=== PATIENT | female | born 1995 | race Caucasian/White ===

== ENCOUNTER → 2016-05-21 | Outpatient (CLI) | payer OTHER ==
--- NOTE | 2016-05-21 19:17 | CT ---
EXAMINATION TYPE: CT brain wo con DATE OF EXAM: 05/21/2016 7:12 PM COMPARISON: 08/23/2014 HISTORY: Headaches and neck pain, worse on left side, x [address] DLP: 1077.60 mGycm Automated exposure control for dose reduction was used. FINDINGS: The ventricles and sulci appear normal. There is no mass effect or midline shift. There is no sign of intracranial hemorrhage. The calvarium appears normal. IMPRESSION: Normal unenhanced head CT scan. No change.
--- NOTE | 2016-05-21 19:21 | CT ---
EXAMINATION TYPE: CT soft tissue neck wo con DATE OF EXAM: 05/21/2016 7:12 PM COMPARISON: NONE HISTORY: Headaches and neck pain, worse on left side, x [address] DLP: 348.90 mGycm Automated exposure control for dose reduction was used. FINDINGS: The right gland is symmetric. The parotid glands are symmetric. Submandibular salivary glands are sym metric. Epiglottis appears normal. Subglottic trachea appears normal. There is no evidence of a phary ngeal mass. Tonsils and adenoids appear normal. There are a few cervical lymph nodes measure up to 1 cm. Cervical spine is intact. IMPRESSION: NEGATIVE CT SCAN OF THE CERVICAL SPINE AND SOFT TISSUES. THERE ARE MULTIPLE ANTERIOR AND POSTERIOR TR IANGLE CERVICAL LYMPH NODES THAT MEASURE UP TO 1 CM THAT ARE THOUGHT TO BE NORMAL FOR AGE.
== END | disposition home or self-care (01) ==
LOC: RADCTMAIN 18:41
PROVIDERS: ATTEND Internal Medicine
DX: M54.2 Cervicalgia (principal); R51 Headache
CPT/HCPCS: 70450; 70490

== ENCOUNTER 2016-08-18 12:23 | Emergency (ER) | payer OTHER ==
[2016-08-18 12:48] VITALS: RESP 18
[2016-08-18 13:21] LABS: Appearance,Urine Cloudy (Clear); Bacteria,Urine Occasional /hpf; Bilirubin,Urine Negative (Negative); Glucose,Urine (UA) Negative (Negative); Ketones,Urine Negative (Negative); Leukocyte Esterase,Urine Small (Negative); Mucus,Urine Occasional /hpf; Nitrite,Urine Negative (Negative); Particle Count 3000; Protein,Urine Trace (Negative); RBC,Urine 3 /hpf (0-5); Specific Gravity,Urine 1.024 (1.001-1.035); Squamous Epithelial Cell,Urine 7 /hpf (0-4); UA Billing (MACRO vs. MICRO) MICRO; Urobilinogen,Urine <2.0 mg/dL (<2.0); WBC,Urine 7 /hpf (0-5)
--- NOTE | 2016-08-18 13:36 | ED ---
Female Urogenital HPI - General Chief complaint: Urogenital Stated complaint: Female Time Seen by Provider: 08/18/16 12:53 Source: patient, RN notes reviewed Mode of arrival: ambulatory Limitations: no limitations - History of Present Illness Initial comments: Patient is a 20-year-old female presents emergency room for evaluation of lower pelvic pain. Patient states that she was on antibiotics a week ago. Patient states she began having vaginal itching. Patient states her primary care provider placed on Diflucan. Patient states was still having vaginal pain so she went to [facility]. Patient states that the physician there told her to come here for further evaluation. Patient states she's been on the depo injection for control. Patient denies history of . Patient does states she's been sexually active for the past 2 weeks. Patient denies history of STDs. Patient denies any sexual partners having a history of STDs. Patient denies abnormal vaginal discharge. Patient denies pain or burning during urination, trouble urinating or blood in urine. Patient denies nausea or vomiting. Patient denies abdominal pain. Patient denies fevers or chills. - Related Data Home Medications Medication Instructions Recorded Confirmed HYDROcodone/APAP 5-325MG [[place] 5] 1 tab PO BID PRN 10/16/14 08/18/16 Calcium Carbonate [Calcium] 600 mg PO BID 01/12/15 08/18/16 tiZANidine HCL [Zanaflex] 4 - 8 mg PO TID PRN 01/12/15 08/18/16 ALPRAZolam [Xanax] 0.5 mg PO TID PRN 01/05/16 08/18/16 DULoxetine HCL [Cymbalta] 60 mg PO DAILY 01/05/16 08/18/16 Loratadine [Claritin] 10 mg PO DAILY 03/16/16 08/18/16 rOPINIRole HCL [Requip] 2 mg PO HS PRN 03/16/16 08/18/16 Ibuprofen [Motrin] 200 - 400 mg PO Q6HR PRN 08/18/16 08/18/16 Previous Rx's Medication Instructions Recorded Ergocalciferol [Vitamin D2 50,000 unit PO TH #12 cap 01/26/16 (DRISDOL)] Doxycycline [Vibramycin] 100 mg PO Q12HR 14 Days 08/18/16 Allergies Allergy/AdvReac Type Severity Reaction Status Date / Time asenapine maleate Allergy Rash/Hives Verified 08/18/16 13:06 [From Saphris] cefaclor [From Ceclor] Allergy Rash/Hives Verified 08/18/16 13:06 tramadol Allergy Itching Verified 08/18/16 13:06 Review of Systems ROS Statement: Those systems with pertinent positive or pertinent negative responses have been documented in the HPI. ROS Other: All systems not noted in ROS Statement are negative. Past Medical History Past Medical History: Fibromyalgia Additional Past Medical History / Comment(s): RESTLESS LEG, INSOMNIA, migraines , bulging disc back,HEART PALPATATIONS,bursitis bilateral hips History of Any Multi-Drug Resistant Organisms: None Reported Past Surgical History: Adenoidectomy, Appendectomy, Bariatric Surgery, Cholecystectomy, Ear Surgery, Tonsillectomy Additional Past Surgical History / Comment(s): gastric sleeve-2011,MULT TUBES HENOK EARS, back injections Past Anesthesia/Blood Transfusion Reactions: No Reported Reaction Past Psychological History: Anxiety, Depression Additional Psychological History / Comment(s): She has a history of depression and anxiety and has been stable on her medications of Seroquel and Requip as well as Phenoazopyridine. She denies at this point in time. She does receive Depo-Provera. She is on the Haload, denies tobacco use of her crucial drug use. She has also been travel history. She does have animal exposure from her 2 pet dogs in the home. She doesn't and the family home with her mother and her father. Smoking Status: Never smoker Past Alcohol Use History: None Reported Past Drug Use History: None Reported - Past Family History Mother Family Medical History: No Reported History Father Family Medical History: Hypertension General Exam - General Exam Comments Initial Comments: sitting in exam room, no acute distress. Limitations: no limitations General appearance: alert, in no apparent distress Head exam: Present: atraumatic, normocephalic, normal inspection Eye exam: Present: normal appearance ENT exam: Present: normal exam Neck exam: Present: normal inspection Respiratory exam: Present: normal lung sounds bilaterally. Absent: respiratory distress Cardiovascular Exam: Present: regular rate, normal rhythm, normal heart sounds GI/Abdominal exam: Present: soft, normal bowel sounds. Absent: distended, tenderness, guarding, rebound, rigid External exam: Present: normal external exam Speculum exam: Present: vaginal bleeding (brown discharge) By manual exam: Present: cervical motion tenderness Extremities exam: Present: normal inspection Back exam: Present: normal inspection Neurological exam: Present: alert, oriented X3, CN II-XII intact, normal gait Psychiatric exam: Present: normal affect, normal mood Skin exam: Present: warm, dry, intact, normal color. Absent: rash Course Vital Signs 08/18/16 12:43 Temperature 98.9 F Pulse Rate 101 H Respiratory 18 Rate Blood Pressure 148/76 O2 Sat by Pulse 100 Oximetry Medical Decision Making - Medical Decision Making patient is a 20-year-old female presents to the emergency room for evaluation of vaginal pain. patient does have cervical motion tenderness on pelvic exam. Will prophylactically treat patient for PID. Vaginal cultures pending. Patient is ALLERGIC to cefaclor. Will start patient on doxycycline.advised patient to follow-up with [facility] on Saturday. Patient states she understands everything that was discussed with her. Return parameters discussed. Case discussed Dr. Kee. - Lab Data Lab Results 08/18/16 08/18/16 Range/Units 13:04 13:04 Urine Color Yellow Urine Appearance Cloudy H (Clear) Urine pH 6.0 (5.0-8.0) Ur Specific [place] 1.024 (1.001-1.035) Urine Protein Trace H (Negative) Urine Glucose (UA) Negative (Negative) Urine Ketones Negative (Negative) Urine Blood Moderate H (Negative) Urine Nitrite Negative (Negative) Urine Bilirubin Negative (Negative) Urine Urobilinogen <2.0 (<2.0) mg/dL Ur Leukocyte Esterase Small H (Negative) Urine RBC 3 (0-5) /hpf Urine WBC 7 H (0-5) /hpf Ur Squamous Epith Cells 7 H (0-4) /hpf Urine Bacteria Occasional H (None) /hpf Urine Mucus Occasional H (None) /hpf Urine HCG, Qual Not Detected (Not Detectd) Disposition Clinical Impression: PID (pelvic inflammatory disease) Disposition: HOME SELF-CARE Condition: Good Instructions: Pelvic Inflammatory Disease (ED) Additional Instructions: Take antibiotics as directed. Please follow up with [facility]. If any new symptom arises or symptoms worsen, return to ER as soon as possible. Prescriptions: Doxycycline [Vibramycin] 100 mg PO Q12HR 14 Days Referrals: Nahid Dubrin MD [Primary Care Provider] - 1-2 days Lucy Gonzalez DO [Doctor of Osteopathic Medicine] - 1-2 days Time of Disposition: 13:41
[2016-08-18] MEDS ORDERED: KETOROLAC 60 MG/2 ML VIAL IM STA (13:44)
[2016-08-18] MEDS ORDERED: DOXYCYCLINE 50 MG CAP PO STA (13:45)
[2016-08-18 14:20] VITALS: BP 141/78; PULSE 86; TEMP 97.6
== END 2016-08-18 14:23 | disposition home or self-care (01) ==
LOC: EC 12:23
DX: N73.9 Female pelvic inflammatory disease, unspecified (principal); F32.9 Major depressive disorder, single episode, unspecified; F41.9 Anxiety disorder, unspecified; Z79.899 Other long term (current) drug therapy; Z88.1 Allergy status to other antibiotic agents; Z88.6 Allergy status to analgesic agent; Z88.8 Allergy status to other drugs, medicaments and biological substances
CPT/HCPCS: 99283 ×2; 96372 ×2; 87591; 87491; 81001; 81025; 87808; 87070; J1885; 87205

== ENCOUNTER 2017-08-08 23:15 | Emergency (ER) | payer OTHER ==
[2017-08-08 23:20] VITALS: BP 152/87; PULSE 88; RESP 16; TEMP 98.9
[2017-08-08] MEDS ORDERED: diphenhydrAMINE 50 MG CAP PO STA (23:48)
[2017-08-08] MEDS ORDERED: predniSONE 50 MG TAB PO STA (23:48)
--- NOTE | 2017-08-08 23:50 | ED ---
Skin/Abscess/FB HPI - General Chief complaint: Skin/Abscess/Foreign Body Stated complaint: allergic reaction Time Seen by Provider: 08/08/17 23:21 Source: patient Mode of arrival: ambulatory Limitations: no limitations - History of Present Illness Initial comments: 21-year-old female patient presents to the emergency department today for evaluation of multiple itchy red bumps to her bilateral knees, legs, and arms. 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 Patient states these the first time being at home. Patient states he did have pets and possibly fleas. Patient states that the bumps are itchy. She denies any lip, tongue, or throat swelling. Denies any wheezing or shortness of breath. Patient denies taking anything for her symptoms. Patient states that the bump started out as small itchy bumps and are growing larger. She denies exposure to any other new products, soaps, lotions, perfume, or creams. Patient denies any recent fever, chills, chest pain, abdominal pain, nausea, vomiting, diarrhea, constipation, back pain, numbness, tingling, dizziness, weakness, hematuria, dysuria, urinary urgency, urinary frequency, headache, visual changes, or any other complaints. - Related Data Home Medications Medication Instructions Recorded Confirmed tiZANidine HCL [Zanaflex] 4 - 8 mg PO TID PRN 01/12/15 08/08/17 DULoxetine HCL [Cymbalta] 60 mg PO DAILY 01/05/16 08/08/17 Loratadine [Claritin] 10 mg PO DAILY 03/16/16 08/08/17 rOPINIRole HCL [Requip] 2 mg PO HS PRN 03/16/16 08/08/17 DULoxetine HCL [Cymbalta] 30 mg PO DAILY 08/08/17 08/08/17 Dicyclomine [Bentyl] 10 mg PO TID 08/08/17 08/08/17 Ergocalciferol [Vitamin D2 50,000 unit PO Q30D 08/08/17 08/08/17 (DRISDOL)] Fluticasone Nasal [place] [Flonase 2 spr EA NOSTRIL DAILY 08/08/17 08/08/17 Nasal [place]] LORazepam [Ativan] 1 mg PO BID 08/08/17 08/08/17 Minocycline HCl [Minocin] 100 mg PO BID 08/08/17 08/08/17 Nadolol [Corgard] 20 mg PO DAILY 08/08/17 08/08/17 Omeprazole [PriLOSEC] 40 mg PO DAILY 08/08/17 08/08/17 lamoTRIgine [LaMICtal] 25 mg PO DAILY 08/08/17 08/08/17 lamoTRIgine [LaMICtal] 50 mg PO HS 08/08/17 08/08/17 traMADol HCL [Ultram] 50 mg PO TID PRN 08/08/17 08/08/17 Previous Rx's Medication Instructions Recorded predniSONE 50 mg PO DAILY #3 tablet 08/08/17 Allergies Allergy/AdvReac Type Severity Reaction Status Date / Time asenapine maleate Allergy Rash/Hives Verified 08/08/17 23:34 [From Saphris] cefaclor [From Ceclor] Allergy Rash/Hives Verified 08/08/17 23:34 Review of Systems ROS Statement: Those systems with pertinent positive or pertinent negative responses have been documented in the HPI. ROS Other: All systems not noted in ROS Statement are negative. Past Medical History Past Medical History: Fibromyalgia Additional Past Medical History / Comment(s): RESTLESS LEG, INSOMNIA, migraines , bulging disc back,HEART PALPATATIONS,bursitis bilateral hips History of Any Multi-Drug Resistant Organisms: None Reported Past Surgical History: Adenoidectomy, Appendectomy, Bariatric Surgery, Cholecystectomy, Ear Surgery, Tonsillectomy Additional Past Surgical History / Comment(s): gastric sleeve-2011,MULT TUBES HENOK EARS, back injections Past Anesthesia/Blood Transfusion Reactions: No Reported Reaction Past Psychological History: Anxiety, Depression Smoking Status: Never smoker Past Alcohol Use History: None Reported Past Drug Use History: None Reported - Past Family History Mother Family Medical History: No Reported History Father Family Medical History: Hypertension General Exam Limitations: no limitations General appearance: alert, in no apparent distress, other (This is a well- developed, well-nourished adult female patient in no acute distress. Vital signs upon presentation are temperature 98.9F, pulse 88, respirations 16, blood pressure 152/87, pulse ox 97% on room air.) Eye exam: Present: normal appearance, PERRL, EOMI. Absent: scleral icterus, conjunctival injection, periorbital swelling ENT exam: Present: normal exam, normal oropharynx, mucous membranes moist Respiratory exam: Present: normal lung sounds bilaterally. Absent: respiratory distress, wheezes, rales, rhonchi, stridor Cardiovascular Exam: Present: regular rate, normal rhythm, normal heart sounds. Absent: systolic murmur, diastolic murmur, rubs, gallop, clicks Neurological exam: Present: alert, oriented X3, CN II-XII intact Psychiatric exam: Present: normal affect, normal mood Skin exam: Present: warm, dry, intact, normal color, rash (Intermittent red wheals with no surrounding erythema are present. These are nonvesicular, non- petechial, nonmucosal. Similar to insect bites.) Course Vital Signs 08/08/17 23:17 Temperature 98.9 F Pulse Rate 88 Respiratory 16 Rate Blood Pressure 152/87 O2 Sat by Pulse 97 Oximetry Medical Decision Making - Medical Decision Making 21-year-old female patient presented to the emergency department today for evaluation of what appears to be multiple insect bites over her arms and legs. Patient is not having any lip, tongue, or throat swelling. No trouble breathing. We will give Benadryl and prednisone for symptom relief. She is instructed to follow-up with her primary care physician for recheck in 1-2 days. Return parameters discussed in detail. She verbalizes understanding and agrees this plan. Disposition Clinical Impression: Bug bites Disposition: HOME SELF-CARE Condition: Good Instructions: Insect Bite or Sting (ED) Additional Instructions: Take Benadryl every 6 hours as needed. Complete prescription and full. Follow- up through primary care physician for recheck in 1-2 days. Return here immediately for any new, worsening, or concerning symptoms. Prescriptions: predniSONE 50 mg PO DAILY #3 tablet Is patient prescribed a controlled substance at d/c from ED?: No Referrals: Nahid Durbin MD [Primary Care Provider] - 1-2 days Time of Disposition: 23:50
== END 2017-08-08 23:56 | disposition home or self-care (01) ==
LOC: EC 23:15
DX: S40.862A Insect bite (nonvenomous) of left upper arm, initial encounter (principal); S40.861A Insect bite (nonvenomous) of right upper arm, initial encounter; S80.262A Insect bite (nonvenomous), left knee, initial encounter; S80.261A Insect bite (nonvenomous), right knee, initial encounter; M79.7 Fibromyalgia; G25.81 Restless legs syndrome; F32.9 Major depressive disorder, single episode, unspecified; F41.9 Anxiety disorder, unspecified; Z79.51 Long term (current) use of inhaled steroids; Z79.899 Other long term (current) drug therapy; Z88.1 Allergy status to other antibiotic agents; Z88.8 Allergy status to other drugs, medicaments and biological substances; W57.XXXA Bitten or stung by nonvenomous insect and other nonvenomous arthropods, initial encounter
CPT/HCPCS: 99283; J7512

== ENCOUNTER → 2017-09-10 | Outpatient (CLI) | payer OTHER ==
[2017-09-10 11:43] LABS: HCT 33.6 % (34.0-46.0); HGB 11.1 gm/dL (11.4-16.0); MCH 27.8 pg (25.0-35.0); MCHC 32.9 g/dL (31.0-37.0); MCV 84.6 fL (80.0-100.0); Mean Platelet Volume 7.1; Platelet Count 288 k/uL (150-450); RBC 3.97 m/uL (3.80-5.40); RDW 13.7 % (11.5-15.5)
[2017-09-10 12:07] LABS: ALT 24 U/L (9-52); AST 20 U/L (14-36); Alkaline Phosphatase 60 U/L (38-126); Anion Gap 14 mmol/L; Blood Urea Nitrogen 14 mg/dL (7-17); Carbon Dioxide 25 mmol/L (22-30); Chloride 107 mmol/L (98-107); Glucose 56 mg/dL (74-99); Potassium 4.1 mmol/L (3.5-5.1); Sodium 146 mmol/L (137-145); Total Bilirubin 0.2 mg/dL (0.2-1.3)
[2017-09-10 12:23] LABS: T4, Free (Free Thyroxine) 1.15 ng/dL (0.78-2.19)
== END | disposition home or self-care (01) ==
LOC: LABWHC1 11:00
PROVIDERS: ATTEND Psychiatry & Neurology Neurology
DX: G62.9 Polyneuropathy, unspecified (principal); E03.9 Hypothyroidism, unspecified
CPT/HCPCS: 36415; 80053; 82607; 84439; 84443; 84481; 85027

== ENCOUNTER → 2017-09-20 | Outpatient (CLI) | payer OTHER | END | disposition home or self-care (01) | LOC: LABWHC1 16:55 | PROVIDERS: ATTEND Internal Medicine | DX: E83.52 Hypercalcemia (principal) | CPT/HCPCS: 36415; 82330; 83970 ==

== ENCOUNTER 2017-10-15 17:55 | Emergency (ER) | payer OTHER ==
[2017-10-15] MEDS ORDERED: SODIUM CHLORIDE 0.9% 1,000 ML IV STA (18:25)
[2017-10-15] MEDS ORDERED: KETOROLAC 30 MG/ML 1 ML VIAL IVP STA (18:25)
[2017-10-15] MEDS ORDERED: ONDANSETRON 4 MG/2 ML VIAL IVP STA (18:25)
--- NOTE | 2017-10-15 19:04 | ED ---
General Adult HPI - General Chief complaint: Chest Pain Stated complaint: chest pain Time Seen by Provider: 10/15/17 18:08 Source: patient, RN notes reviewed Mode of arrival: ambulatory Limitations: no limitations - History of Present Illness Initial comments: 21-year-old female presents to the emergency department for a chief complaint of racing heart and chest tightness. Patient states she has had palpitations for over a year. She is being seen by cardiology and was put on Nadolol. Patient states she did take her medication today. Patient states that over the past few weeks the palpitations seem to have increased. Patient states that today she was experiencing chest tightness as well as mild shortness of breath. Patient admits to tightness worsened by taking a deep breath. Patient denies any cardiac or pulmonary history. Patient states she has extensive history of anxiety. Patient states she has experienced these symptoms before in the past. Patient has no other complaints at this time including abdominal pain, nausea or vomiting, headache, or visual changes. - Related Data Home Medications Medication Instructions Recorded Confirmed tiZANidine HCL [Zanaflex] 4 - 8 mg PO HS PRN 01/12/15 10/15/17 DULoxetine HCL [Cymbalta] 60 mg PO BID 01/05/16 10/15/17 Loratadine [Claritin] 10 mg PO DAILY 03/16/16 10/15/17 Ergocalciferol [Vitamin D2 50,000 unit PO MO 08/08/17 10/15/17 (DRISDOL)] LORazepam [Ativan] 1 - 3 mg PO DAILY PRN 08/08/17 10/15/17 Nadolol [Corgard] 20 mg PO HS 08/08/17 10/15/17 Omeprazole [PriLOSEC] 40 mg PO DAILY 08/08/17 10/15/17 lamoTRIgine [LaMICtal] 50 mg PO DAILY 08/08/17 10/15/17 lamoTRIgine [LaMICtal] 75 mg PO HS 08/08/17 10/15/17 traMADol HCL [Ultram] 50 mg PO TID PRN 08/08/17 10/15/17 Cyanocobalamin (Vitamin B-12) 1,000 mcg PO DAILY 10/15/17 10/15/17 [Vitamin B-12] Ibuprofen [Motrin] 800 mg PO DAILY PRN 10/15/17 10/15/17 diphenhydrAMINE HCL [Benadryl] 25 mg PO HS 10/15/17 10/15/17 Allergies Allergy/AdvReac Type Severity Reaction Status Date / Time asenapine maleate Allergy Rash/Hives Verified 10/15/17 18:18 [From Saphris] cefaclor [From Ceclor] Allergy Rash/Hives Verified 10/15/17 18:18 Review of Systems ROS Statement: Those systems with pertinent positive or pertinent negative responses have been documented in the HPI. ROS Other: All systems not noted in ROS Statement are negative. Past Medical History Past Medical History: Fibromyalgia Additional Past Medical History / Comment(s): RESTLESS LEG, INSOMNIA, migraines , bulging disc back,HEART PALPATATIONS,bursitis bilateral hips History of Any Multi-Drug Resistant Organisms: None Reported Past Surgical History: Adenoidectomy, Appendectomy, Bariatric Surgery, Cholecystectomy, Ear Surgery, Tonsillectomy Additional Past Surgical History / Comment(s): gastric sleeve-2011,MULT TUBES HENOK EARS, back injections Past Anesthesia/Blood Transfusion Reactions: No Reported Reaction Past Psychological History: Anxiety, Depression Smoking Status: Never smoker Past Alcohol Use History: None Reported Past Drug Use History: None Reported - Past Family History Mother Family Medical History: No Reported History Father Family Medical History: Hypertension General Exam Limitations: no limitations General appearance: alert, in no apparent distress Head exam: Present: atraumatic, normocephalic, normal inspection Eye exam: Present: normal appearance ENT exam: Present: normal exam, mucous membranes moist Neck exam: Present: normal inspection. Absent: tenderness, meningismus, lymphadenopathy Respiratory exam: Present: normal lung sounds bilaterally, chest wall tenderness , other (tightness worsened by deep breath). Absent: respiratory distress, wheezes, rales, rhonchi, stridor Cardiovascular Exam: Present: regular rate, normal rhythm, normal heart sounds. Absent: systolic murmur, diastolic murmur, rubs, gallop, clicks GI/Abdominal exam: Present: soft, normal bowel sounds. Absent: distended, tenderness, guarding, rebound, rigid Course Vital Signs 10/15/17 10/15/17 10/15/17 18:02 18:40 19:09 Temperature 98.4 F Pulse Rate 124 H 110 H 83 Respiratory 20 20 20 Rate Blood Pressure 129/89 O2 Sat by Pulse 98 97 98 Oximetry EKG Findings - EKG Comments: EKG Findings:: Ventricular rate 89, VA interval 148, QRS 88, normal sinus rhythm. Medical Decision Making - Medical Decision Making 21-year-old female presents to the emergency department for chief complaint of palpitations times weeks as well as mild chest tightness and shortness of breath times one day. Patient states she feels that she cannot take a deep breath. Patient admits that taking a deep breath makes the tightness in her chest worse. Heart rate decreased from 126-89 beats per minute while in the emergency department. On exam patient does have anterior chest wall tenderness. Regular rate and rhythm. Patient also became nauseous while in the emergency department. She was given Zofran and Reglan which helped with her nausea. She was also given Ativan which she takes at home. Chest x-ray shows no acute process. Lungs are clear. Cardiac silhouette is not enlarged. EKG shows a normal sinus rhythm with a ventricular rate of 89. On reexamination , patient feels much better. She states her nausea has resolved and she feels less anxious. Patient still complains of a headache which started since she's been in the emergency department and was given [place]. Patient will be discharged home with return precautions. 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 Disposition Clinical Impression: Atypical chest pain, Anxiety Disposition: HOME SELF-CARE Condition: Good Instructions: Chest Pain (ED), Anxiety (ED) Additional Instructions: Please take Motrin or Tylenol for pain. You may also take tramadol at home. Take Ativan as needed. Follow-up with botany professor and primary care provider. Return to the emergency department if you have any worsening symptoms. Is patient prescribed a controlled substance at d/c from ED?: No Referrals: Nahid Durbin MD [Primary Care Provider] - 1-2 days Time of Disposition: 19:49
[2017-10-15] MEDS ORDERED: LORazepam 2 MG/ML INJ IV STA (19:09)
[2017-10-15] MEDS ORDERED: METOCLOPRAMIDE 5 MG/ML 2 ML VIAL IVP STA (19:09)
[2017-10-15 19:10] VITALS: PULSE 83
--- NOTE | 2017-10-15 19:22 | XR ---
EXAMINATION: XR chest 2V DATE AND TIME: 10/15/2017 6:53 PM ORDERING PROVIDER: John Dang CLINICAL INDICATION: Pain TECHNIQUE: PA and lateral COMPARISON: 03/16/2016 DESCRIPTION: The lungs are clear. The pleural spaces are negative. The cardiac silhouette is not enlarged. The mediastinal and pleural silhouettes are unremarkable. The skeletal structures are intact without focal findings. The soft tissues are unremarkable. IMPRESSION: NO ACUTE PROCESS.
[2017-10-15] MEDS ORDERED: HYDROcodone/APAP 5-325MG 1 EACH TAB PO STA (19:41)
[2017-10-15 20:11] VITALS: BP 128/56; RESP 18; TEMP 98.2
== END 2017-10-15 20:05 | disposition home or self-care (01) ==
LOC: EC 17:55
DX: F41.9 Anxiety disorder, unspecified (principal); R07.89 Other chest pain; R11.0 Nausea; M79.7 Fibromyalgia; G25.81 Restless legs syndrome; F32.9 Major depressive disorder, single episode, unspecified; Z79.899 Other long term (current) drug therapy; Z88.1 Allergy status to other antibiotic agents; Z88.8 Allergy status to other drugs, medicaments and biological substances
CPT/HCPCS: 93005; 71046; 99285; 96374; 96375 ×3; 96361; J2060; J2765; J2405; J1885

== ENCOUNTER → 2017-12-20 | Outpatient (CLI) | payer OTHER ==
--- NOTE | 2017-12-20 11:06 | USB ---
Reason for exam: clinical finding. History: Patient is nulliparous. Family history of breast cancer in paternal grandmother at age 50. Indicated problem(s): palpable abnormality and pain in the right breast. Physical Findings: Nurse Summary: right breast at 9 o'clock 1cm movable palpation feels cystic and noted throughout right breast, bilateral nodularity (nurse cw). US Breast BILAT Right complete breast ultrasound includes all four quadrants, the retroareolar region and axilla. Finding demonstrates no cystic or solid lesion seen. Left complete breast ultrasound includes all four quadrants, the retroareolar region and axilla. Finding demonstrates no cystic or solid lesion seen. No abnormalities at reported palpable areas. These results were verbally communicated with the patient and result sheet given to the patient on 12/20/17. ASSESSMENT: Negative, BI-RAD 1 RECOMMENDATION: Routine screening mammogram of both breasts at age 39. Manage patient on a clinical basis.
== END | disposition home or self-care (01) ==
LOC: RADUSWWP 09:42
PROVIDERS: ATTEND Obstetrics & Gynecology
DX: N63.0 Unspecified lump in unspecified breast (principal)

== ENCOUNTER 2018-03-03 19:19 | Emergency (ER) | payer OTHER ==
[2018-03-03 20:00] VITALS: RESP 18
--- NOTE | 2018-03-03 20:35 | XR ---
EXAMINATION TYPE: XR foot complete RT DATE OF EXAM: 03/03/2018 COMPARISON: NONE HISTORY: Foot pain TECHNIQUE: 3 views FINDINGS: I see no fracture nor dislocation. Joint spaces are normal. Metatarsals appear intact. Ther e are no erosions. IMPRESSION: Negative right foot exam.
--- NOTE | 2018-03-03 21:30 | ED ---
Lower Extremity Injury HPI - General Chief Complaint: Extremity Injury, Lower Stated Complaint: Foot injury Time Seen by Provider: 03/03/18 21:08 Source: patient Mode of arrival: ambulatory Limitations: no limitations - History of Present Illness Initial Comments: 22-year-old female who denies past medical history presenting today for chief complaint of right foot pain. Patient states that she dropped a box of unknown weight on foot 2 days ago. Patient admitted to pain at the base of the great toe. Patient noticed some swelling on the plantar surface of the big toe. Patient had pain with ambulation. Patient denies numbness, tingling, loss sensation, erythema, ecchymosis or injury to the nailbed. Patient denies forefoot pain. Patient was concerned of possible fracture of the great toe presented for evaluation. Upon arrival patient is ambulatory. Patient denies falling or injury to any extremity. Patient denies foreign body or puncture of foot. Patient is well-appearing vital signs within acceptable limits. Remainder was negative, patient denies any recent fever, chills, shortness of breath, chest pain, back pain, abdominal pain, nausea or vomiting, numbness or tingling, dysuria or hematuria, constipation or diarrhea, headaches or visual changes, or any other complaints. - Related Data Home Medications Medication Instructions Recorded Confirmed tiZANidine HCL [Zanaflex] 4 - 8 mg PO HS PRN 01/12/15 10/15/17 DULoxetine HCL [Cymbalta] 60 mg PO BID 01/05/16 10/15/17 Loratadine [Claritin] 10 mg PO DAILY 03/16/16 10/15/17 Ergocalciferol [Vitamin D2 50,000 unit PO MO 08/08/17 10/15/17 (DRISDOL)] LORazepam [Ativan] 1 - 3 mg PO DAILY PRN 08/08/17 10/15/17 Nadolol [Corgard] 20 mg PO HS 08/08/17 10/15/17 Omeprazole [PriLOSEC] 40 mg PO DAILY 08/08/17 10/15/17 lamoTRIgine [LaMICtal] 50 mg PO DAILY 08/08/17 10/15/17 lamoTRIgine [LaMICtal] 75 mg PO HS 08/08/17 10/15/17 traMADol HCL [Ultram] 50 mg PO TID PRN 08/08/17 10/15/17 Cyanocobalamin (Vitamin B-12) 1,000 mcg PO DAILY 10/15/17 10/15/17 [Vitamin B-12] Ibuprofen [Motrin] 800 mg PO DAILY PRN 10/15/17 10/15/17 diphenhydrAMINE HCL [Benadryl] 25 mg PO HS 10/15/17 10/15/17 Allergies Allergy/AdvReac Type Severity Reaction Status Date / Time asenapine maleate Allergy Rash/Hives Verified 03/03/18 20:00 [From Saphris] cefaclor [From Ceclor] Allergy Rash/Hives Verified 03/03/18 20:00 Review of Systems ROS Statement: Those systems with pertinent positive or pertinent negative responses have been documented in the HPI. ROS Other: All systems not noted in ROS Statement are negative. Constitutional: Denies: fever, chills, night sweats ENT: Denies: ear pain, throat pain Respiratory: Denies: cough, dyspnea, wheezes, hemoptysis, stridor Cardiovascular: Denies: chest pain, palpitations Gastrointestinal: Denies: abdominal pain, nausea, vomiting, diarrhea, constipation Musculoskeletal: Reports: arthralgia (MTP joint of first digit of right foot). Denies: back pain Skin: Denies: rash, lesions Neurological: Denies: headache, weakness, numbness, paresthesias, confusion Past Medical History Past Medical History: Fibromyalgia Additional Past Medical History / Comment(s): RESTLESS LEG, INSOMNIA, migraines , bulging disc back,HEART PALPATATIONS,bursitis bilateral hips History of Any Multi-Drug Resistant Organisms: None Reported Past Surgical History: Adenoidectomy, Appendectomy, Bariatric Surgery, Cholecystectomy, Ear Surgery, Tonsillectomy Additional Past Surgical History / Comment(s): gastric sleeve-2011,MULT TUBES HENOK EARS, back injections Past Anesthesia/Blood Transfusion Reactions: No Reported Reaction Past Psychological History: Anxiety, Depression Smoking Status: Never smoker Past Alcohol Use History: None Reported Past Drug Use History: None Reported - Past Family History Mother Family Medical History: No Reported History Father Family Medical History: Hypertension General Exam - General Exam Comments Initial Comments: General: The patient is awake and alert, in no distress, and does not appear acutely ill. Eye: Pupils are equal, round and reactive to light, extra-ocular movements are intact. No nystagmus. There is normal conjunctiva bilaterally. No signs of icterus. Cardiovascular: There is a regular rate and rhythm. No murmur, rub or gallop is appreciated. Respiratory: Lungs are clear to auscultation, respirations are non-labored, breath sounds are equal. No wheezes, stridor, rales, or rhonchi. Musculoskeletal: Upon inspection of the feet bilaterally, there is no obvious swelling or ecchymosis of the feet or the MTP joints. No erythema. No injury to nail bed noted. Patient is able to fully range at the MTP PIP and DIP joints of all 5 digits of the feet bilaterally. She does admit to tenderness with movement of the right foot. There is pain to palpation at the base of the first metatarsal. There is no pain or patient over the area of the Lisfranc ligament. Strength 5/5 of lower extremities including ankle and digits of the feet equal bilaterally. Sensation intact of the feet equally bilaterally. DP pulses equal bilaterally 2+. Refill less than 2 seconds. Compartments are soft and compressible. No pain over the ankle, lateral or medial malleolus. No pain over the forefoot. Neurological: A&O x 3. CN II-XII intact, There are no obvious motor or sensory deficits. Coordination appears grossly intact. Speech is normal. Skin: Skin is warm and dry and no rashes or lesions are noted. Psychiatric: Cooperative, appropriate mood & affect, normal judgment. Limitations: no limitations Course Vital Signs 03/03/18 03/03/18 19:56 21:57 Temperature 98.2 F 98.0 F Pulse Rate 90 94 Respiratory 18 18 Rate Blood Pressure 114/76 119/70 O2 Sat by Pulse 99 99 Oximetry Medical Decision Making - Medical Decision Making PE as noted above, no suspicion for Lisfranc injury at this time. Patient refused pain management. X-ray negative for acute process. Patient is placed in a splint with a surgical boot. Patient was given prescription for crutches. Patient was instructed to follow-up with orthopedic surgery for persistent pain. Patient is instructed to nonweight bear until evaluation. Patient was also given Rice instructions as well as instructions to use Ibuprofen and Tylenol for pain management. Patient verbalized understanding of plan and is agreeable. Patient is stable for discharge. I discussed all findings with Dr. Perez who agrees impression and plan. Patient was discharged in stable condition patient was given return parameters, verbalized understanding. Patient denies questions at this time. Disposition Clinical Impression: Foot pain, right, Foot contusion Disposition: HOME SELF-CARE Condition: Good Instructions: Foot Contusion (ED) Additional Instructions: Please use medication as discussed. Please follow-up with family doctor in the next 2 days, if symptoms persist please f/u with orthopedic surgery. Please return to emergency room if the symptoms increase or worsen or for any other concerns. Is patient prescribed a controlled substance at d/c from ED?: No Referrals: Nahid Durbin MD [Primary Care Provider] - 1-2 days Masood Drake MD [STAFF PHYSICIAN] - 1-2 days Time of Disposition: 21:36
[2018-03-03 21:58] VITALS: BP 119/70; PULSE 94; TEMP 98
== END 2018-03-03 21:58 | disposition home or self-care (01) ==
LOC: EC 19:19
DX: S90.31XA Contusion of right foot, initial encounter (principal); F32.9 Major depressive disorder, single episode, unspecified; F41.9 Anxiety disorder, unspecified; Z88.1 Allergy status to other antibiotic agents; Z88.8 Allergy status to other drugs, medicaments and biological substances; Z79.899 Other long term (current) drug therapy; W20.8XXA Other cause of strike by thrown, projected or falling object, initial encounter
CPT/HCPCS: 99283

== ENCOUNTER → 2018-07-16 | Outpatient (CLI) | payer OTHER ==
--- NOTE | 2018-07-17 09:53 | BD ---
EXAMINATION TYPE: Axial Bone Density DATE OF EXAM: 07/16/2018 COMPARISON: NONE CLINICAL HISTORY: Hormone therapy : ON THE DEPO SHOT Height: 66.5 Weight: 296.1 FRAX RISK QUESTIONS: Alcohol (3 or more units per day): no Family History (Parent hip fracture): no Glucocorticoids (More than 3mos): no (Ex: prednisone, prednisolone, methylprednisolone, dexamethasone, and hydrocortisone). History of Fracture in Adulthood: unsure/ possible foot fx Secondary Osteoporosis: 1. Type 1 Diabetes: no 2. Hyperthyroidism: no 3. Menopause before 45: n/a 4. Malnutrition: no osteoporosis 5. Chronic liver disease: no Rheumatoid Arthritis: no Current Tobacco Use: no RISK FACTORS HISTORY OF: Family History of Osteoporosis: no Active: yes Diet low in dairy products/other sources of calcium: yes Postmenopausal woman: n/a MEDICATIONS: control(Depo shot), xanax, cymbalta, muscle relaxers, singulair, probiotic Additional History: EXAM MEASUREMENTS: Bone mineral densitometry was performed using the [employer] System. Bone mineral density as measured about the Lumbar spine is: ----- L1-L4(G/cm2): 1.254 T Score Values are as follows: ----- L2: 0.8 ----- L3: 0.7 ----- L4: -0.3 ----- L1-L4: 0.6 Bone mineral density : baseline Bone mineral density about the R hip (g/cm2): 0.884 Bone mineral density about the L hip (g/cm2): 0.943 T Score values are as follows: -----R Neck: -1.1 -----L Neck: -0.7 -----R Total: -1.1 -----L Total: -0.7 Bone mineral density : baseline IMPRESSION: Normal (Values between +1 and -1 indicate normal bone mass). Consider repeating this study in 5 year s or sooner if there is some new clinical indication. NOTE: T-SCORE=SD OF THE YOUNG ADULT MEAN.
== END | disposition home or self-care (01) ==
LOC: RADBDWWP 16:15
PROVIDERS: ATTEND Obstetrics & Gynecology
DX: Z09 Encounter for follow-up examination after completed treatment for conditions other than malignant neoplasm (principal); Z78.9 Other specified health status
CPT/HCPCS: 77080

== ENCOUNTER 2018-08-17 12:44 | Emergency (ER) | payer OTHER ==
[2018-08-17 12:58] VITALS: BP 134/88; PULSE 82; RESP 16; TEMP 97.8
--- NOTE | 2018-08-17 13:39 | XR ---
EXAMINATION TYPE: XR wrist complete RT, XR hand complete RT , 7 VIEWS DATE OF EXAM ORDERED: 08/17/2018 HISTORY: Pain. COMPARISON: None. FINDINGS: No fracture, dislocation or other acute osseous lesion is seen. IMPRESSION: NO ACUTE OSSEOUS LESION.
--- NOTE | 2018-08-17 13:50 | ED ---
Upper Extremity HPI - General Chief Complaint: Extremity Injury, Upper Stated Complaint: hand injury/pain Source: patient Mode of arrival: ambulatory Limitations: no limitations - History of Present Illness Initial Comments: 22-year-old male presenting for right hand pain patient states she has had right hand pain for the past 10 days after crushing her hand in a plastic pool side been. She states this was lately. Patient states she did bruising at the base of digits 3 and 4. Patient states the pain radiates from the fingers towards the wrist. Patient denies any decreased range of motion numbness tingling loss sensation to denies any pallor or coolness of extremity. Patient denies a fall injury to the elbow shoulder or neck. Remaining review of systems negative upon arrival patient appears well no signs of acute distress. Right hand is wrapped in Gary bandage. - Related Data Home Medications Medication Instructions Recorded Confirmed tiZANidine HCL [Zanaflex] 4 - 8 mg PO HS PRN 01/12/15 10/15/17 DULoxetine HCL [Cymbalta] 60 mg PO BID 01/05/16 10/15/17 Loratadine [Claritin] 10 mg PO DAILY 03/16/16 10/15/17 Ergocalciferol [Vitamin D2 50,000 unit PO MO 08/08/17 10/15/17 (DRISDOL)] LORazepam [Ativan] 1 - 3 mg PO DAILY PRN 08/08/17 10/15/17 Nadolol [Corgard] 20 mg PO HS 08/08/17 10/15/17 Omeprazole [PriLOSEC] 40 mg PO DAILY 08/08/17 10/15/17 lamoTRIgine [LaMICtal] 50 mg PO DAILY 08/08/17 10/15/17 lamoTRIgine [LaMICtal] 75 mg PO HS 08/08/17 10/15/17 traMADol HCL [Ultram] 50 mg PO TID PRN 08/08/17 10/15/17 Cyanocobalamin (Vitamin B-12) 1,000 mcg PO DAILY 10/15/17 10/15/17 [Vitamin B-12] Ibuprofen [Motrin] 800 mg PO DAILY PRN 10/15/17 10/15/17 diphenhydrAMINE HCL [Benadryl] 25 mg PO HS 10/15/17 10/15/17 Allergies Allergy/AdvReac Type Severity Reaction Status Date / Time asenapine maleate Allergy Rash/Hives Verified 08/17/18 12:58 [From Saphris] cefaclor [From Ceclor] Allergy Rash/Hives Verified 08/17/18 12:58 Review of Systems ROS Statement: Those systems with pertinent positive or pertinent negative responses have been documented in the HPI. ROS Other: All systems not noted in ROS Statement are negative. Past Medical History Past Medical History: Fibromyalgia Additional Past Medical History / Comment(s): RESTLESS LEG, INSOMNIA, migraines, bulging disc back,HEART PALPATATIONS,bursitis bilateral hips History of Any Multi-Drug Resistant Organisms: None Reported Past Surgical History: Adenoidectomy, Appendectomy, Bariatric Surgery, Cholecystectomy, Ear Surgery, Tonsillectomy Additional Past Surgical History / Comment(s): gastric sleeve-2011,MULT TUBES HENOK EARS, back injections Past Anesthesia/Blood Transfusion Reactions: No Reported Reaction Past Psychological History: Anxiety, Depression Smoking Status: Never smoker Past Alcohol Use History: None Reported Past Drug Use History: None Reported - Past Family History Mother Family Medical History: No Reported History Father Family Medical History: Hypertension General Exam - General Exam Comments Initial Comments: General: The patient is awake and alert, in no distress, and does not appear acutely ill. Eye: Pupils are equal, round and reactive to light, extra-ocular movements are intact. No nystagmus. There is normal conjunctiva bilaterally. No signs of icterus. Ears, nose, mouth and throat: There are moist mucous membranes and no oral lesions. Neck: The neck is supple, there is no tenderness or JVD. Cardiovascular: There is a regular rate and rhythm. No murmur, rub or gallop is appreciated. Respiratory: Lungs are clear to auscultation, respirations are non-labored, breath sounds are equal. No wheezes, stridor, rales, or rhonchi. Gastrointestinal: Soft, non-distended, non-tender abdomen without masses or organomegaly noted. There is no rebound or guarding present. No CVA tenderness. Bowel sounds are unremarkable. Musculoskeletal: Upon inspection of the right hand there is very mild resolving ecchymosis at the base of digits 3 and 4 at the MTP joint. Patient is able to range fully at all MTP DIP and PIP joints of the hands equal comparison bilaterally. Ulnar median and radial nerve appear intact patient is able to finger oppose the index finger thumb thumb and pinky finger, comes up fingers crossed okay and extend at the wrist bilaterally. Normal ROM, no tenderness at the wrist, there is no point tenderness to palpation of the carpals no anatomical snuffbox tenderness.. Strength 5/5 of the MTP DIP PIP joints of the hands bilaterally of all 5 digits. Sensation intact at the tips of all 5 digits and both proximal to the injury site..Radial pulses equal bilaterally 2+. No lacerations or abrasions Neurological: A&O x 3. CN II-XII intact, There are no obvious motor or sensory deficits. Coordination appears grossly intact. Speech is normal. Skin: Skin is warm and dry and no rashes or lesions are noted. Psychiatric: Cooperative, appropriate mood & affect, normal judgment. Limitations: no limitations Course Vital Signs 08/17/18 12:56 Temperature 97.8 F Pulse Rate 82 Respiratory 16 Rate Blood Pressure 134/88 O2 Sat by Pulse 100 Oximetry Medical Decision Making - Medical Decision Making 22-year-old female presenting today for chief complaint of hand pain. Patient states she crushed in a storage container 10 days prior. Patient has some bruising. Imaging studies revealed no acute osseous injury. There is no evidence of tendon injury on examination. No anatomical snuffbox tenderness. No point tenderness to palpation of the carpals. Patient has no neurovascular deficits. Patient was placed in a Gary bandage and instructed to follow-up with was picked surgery and primary care provider. At this time patient was given instruction to take ibuprofen Tylenol [id number] for pain management. I discussed the case with a provider Dr. Santiago was agreeable patient care plan and discharged today Disposition Clinical Impression: Hand contusion, Hand pain Disposition: HOME SELF-CARE Condition: Good Instructions (If sedation given, give patient instructions): Hand Sprain (ED), Hematoma (ED) Additional Instructions: Please use medication as discussed. Please follow-up with family doctor in the next 2 days, if symptoms persist please see orthopedic surgery. Please return to emergency room if the symptoms increase or worsen or for any other concerns. Is patient prescribed a controlled substance at d/c from ED?: No Referrals: Nahid Durbin MD [Primary Care Provider] - 1-2 days Masood Drake MD [STAFF PHYSICIAN] - 1-2 days Time of Disposition: 13:50
== END 2018-08-17 14:30 | disposition home or self-care (01) ==
LOC: EC 12:44
DX: S60.221A Contusion of right hand, initial encounter (principal); F41.9 Anxiety disorder, unspecified; F32.9 Major depressive disorder, single episode, unspecified; M79.7 Fibromyalgia; Z79.899 Other long term (current) drug therapy; Z88.1 Allergy status to other antibiotic agents; Z88.8 Allergy status to other drugs, medicaments and biological substances; Z98.84 Bariatric surgery status; W23.0XXA Caught, crushed, jammed, or pinched between moving objects, initial encounter
CPT/HCPCS: 99283

== ENCOUNTER 2018-11-09 03:55 | Emergency (ER) | payer OTHER ==
--- NOTE | 2018-11-09 04:43 | ED ---
Abdominal Pain HPI - General Chief Complaint: Abdominal Pain Stated Complaint: Abdominal Pain Time Seen by Provider: 11/09/18 04:42 Source: patient, family, RN notes reviewed, old records reviewed Mode of arrival: ambulatory Limitations: no limitations - History of Present Illness Initial Comments: This is a 22-year-old female the ER for evaluation. Patient complained ER with diffuse nonspecific abdominal pain. Patient states pain is been episodic for the night with nausea no vomiting. No diarrhea no fevers. Patient is complicated surgical history removal of gallbladder appendicitis appendix as well as history of weight loss surgery. Surgery was at she was 15. No recent history of strokes or any other issues. No travel history no sick contacts of family members with similar complaints. No modifying factors MD Complaint: abdominal pain -: hour(s) Location: diffuse Radiation: epigastric, suprapubic Migration to: periumbilical, epigastric, suprapubic Severity: moderate Severity scale (1-10): 5 Quality: cramping, aching Consistency: intermittent Improves With: nothing Worsens With: nothing Associated Symptoms: nausea - Related Data Home Medications Medication Instructions Recorded Confirmed tiZANidine HCL [Zanaflex] 4 - 8 mg PO HS PRN 01/12/15 10/15/17 DULoxetine HCL [Cymbalta] 60 mg PO BID 01/05/16 10/15/17 Loratadine [Claritin] 10 mg PO DAILY 03/16/16 10/15/17 Ergocalciferol [Vitamin D2 50,000 unit PO MO 08/08/17 10/15/17 (DRISDOL)] LORazepam [Ativan] 1 - 3 mg PO DAILY PRN 08/08/17 10/15/17 Nadolol [Corgard] 20 mg PO HS 08/08/17 10/15/17 Omeprazole [PriLOSEC] 40 mg PO DAILY 08/08/17 10/15/17 lamoTRIgine [LaMICtal] 50 mg PO DAILY 08/08/17 10/15/17 lamoTRIgine [LaMICtal] 75 mg PO HS 08/08/17 10/15/17 traMADol HCL [Ultram] 50 mg PO TID PRN 08/08/17 10/15/17 Cyanocobalamin (Vitamin B-12) 1,000 mcg PO DAILY 07/10/18 07/10/18 [Vitamin B-12] Ibuprofen [Motrin] 800 mg PO DAILY PRN 10/15/17 10/15/17 diphenhydrAMINE HCL [Benadryl] 25 mg PO HS 10/15/17 10/15/17 Allergies Allergy/AdvReac Type Severity Reaction Status Date / Time asenapine maleate Allergy Rash/Hives Verified 11/09/18 04:03 [From Saphris] cefaclor [From Ceclor] Allergy Rash/Hives Verified 11/09/18 04:03 Review of Systems ROS Statement: Those systems with pertinent positive or pertinent negative responses have been documented in the HPI. ROS Other: All systems not noted in ROS Statement are negative. Past Medical History Past Medical History: Fibromyalgia Additional Past Medical History / Comment(s): RESTLESS LEG, INSOMNIA, migraines, bulging disc back,HEART PALPATATIONS,bursitis bilateral hips History of Any Multi-Drug Resistant Organisms: None Reported Past Surgical History: Adenoidectomy, Appendectomy, Bariatric Surgery, Cholecystectomy, Ear Surgery, Tonsillectomy Additional Past Surgical History / Comment(s): gastric sleeve-2011,MULT TUBES HENOK EARS, back injections Past Anesthesia/Blood Transfusion Reactions: No Reported Reaction Past Psychological History: Anxiety, Depression Smoking Status: Never smoker Past Alcohol Use History: None Reported Past Drug Use History: None Reported - Past Family History Mother Family Medical History: No Reported History Father Family Medical History: Hypertension General Exam Limitations: no limitations General appearance: alert, in no apparent distress, obese Head exam: Present: atraumatic, normocephalic, normal inspection Eye exam: Present: normal appearance, PERRL, EOMI. Absent: scleral icterus, conjunctival injection, periorbital swelling ENT exam: Present: normal exam, mucous membranes moist Neck exam: Present: normal inspection. Absent: tenderness, meningismus, lymphadenopathy Respiratory exam: Present: normal lung sounds bilaterally. Absent: respiratory distress, wheezes, rales, rhonchi, stridor Cardiovascular Exam: Present: regular rate, normal rhythm, normal heart sounds. Absent: systolic murmur, diastolic murmur, rubs, gallop, clicks GI/Abdominal exam: Present: soft, normal bowel sounds. Absent: distended, tenderness, guarding, rebound, rigid Extremities exam: Present: normal inspection, full ROM, normal capillary refill. Absent: tenderness, pedal edema, joint swelling, calf tenderness Back exam: Present: normal inspection Neurological exam: Present: alert, oriented X3, CN II-XII intact Psychiatric exam: Present: normal affect, normal mood Skin exam: Present: warm, dry, intact, normal color. Absent: rash Course Vital Signs 11/09/18 11/09/18 04:00 06:34 Temperature 98.4 F 97.7 F Pulse Rate 82 70 Respiratory 16 18 Rate Blood Pressure 131/84 129/67 O2 Sat by Pulse 98 100 Oximetry - Reevaluation(s) Reevaluation #1: Medical record reviewed Patient with adequate pain control Medical Decision Making - Medical Decision Making 22 female nonspecific abdominal pain. CT head and pelvis negative for acute disease - Lab Data Result diagrams: 11/09/18 05:37 11/09/18 05:37 Lab Results 11/09/18 11/09/18 11/09/18 Range/Units 04:44 04:47 04:47 WBC (3.8-10.6) k/uL RBC (3.80-5.40) m/uL Hgb (11.4-16.0) gm/dL Hct (34.0-46.0) % MCV (80.0-100.0) fL MCH (25.0-35.0) pg MCHC (31.0-37.0) g/dL RDW (11.5-15.5) % Plt Count (150-450) k/uL Neutrophils % % Lymphocytes % % Monocytes % % Eosinophils % % Basophils % % Neutrophils # (1.3-7.7) k/uL Lymphocytes # (1.0-4.8) k/uL Monocytes # (0-1.0) k/uL Eosinophils # (0-0.7) k/uL Basophils # (0-0.2) k/uL Hypochromasia Sodium 139 (137-145) mmol/L Potassium 5.4 H (3.5-5.1) mmol/L Chloride 109 H (98-107) mmol/L Carbon Dioxide 21 L (22-30) mmol/L Anion Gap 9 mmol/L BUN 14 (7-17) mg/dL Creatinine 0.60 (0.52-1.04) mg/dL Est GFR (CKD-EPI)AfAm >90 (>60 ml/min/1.73 sqM) Est GFR (CKD-EPI)NonAf >90 (>60 ml/min/1.73 sqM) Glucose 84 (74-99) mg/dL Calcium 8.7 (8.4-10.2) mg/dL Total Bilirubin 0.6 (0.2-1.3) mg/dL AST 35 (14-36) U/L ALT 26 (9-52) U/L Alkaline Phosphatase 69 (38-126) U/L Total Protein 6.3 (6.3-8.2) g/dL Albumin 3.6 (3.5-5.0) g/dL Amylase 67 (30-110) U/L Lipase 138 (23-300) U/L Urine Color Yellow Urine Appearance Cloudy H (Clear) Urine pH 6.0 (5.0-8.0) Ur Specific [place] 1.021 (1.001-1.035) Urine Protein Negative (Negative) Urine Glucose (UA) Negative (Negative) Urine Ketones Negative (Negative) Urine Blood Negative (Negative) Urine Nitrite Negative (Negative) Urine Bilirubin Negative (Negative) Urine Urobilinogen 2.0 (<2.0) mg/dL Ur Leukocyte Esterase Trace H (Negative) Urine RBC 1 (0-5) /hpf Urine WBC 3 (0-5) /hpf Ur Squamous Epith Cells 5 H (0-4) /hpf Urine Bacteria Rare H (None) /hpf Urine Mucus Occasional H (None) /hpf Urine HCG, Qual Not Detected (Not Detectd) 11/09/18 11/09/18 Range/Units 05:37 05:37 WBC 7.6 (3.8-10.6) k/uL RBC 4.61 (3.80-5.40) m/uL Hgb 11.3 L (11.4-16.0) gm/dL Hct 38.0 (34.0-46.0) % MCV 82.4 (80.0-100.0) fL MCH 24.5 L (25.0-35.0) pg MCHC 29.8 L (31.0-37.0) g/dL RDW 14.1 (11.5-15.5) % Plt Count 335 (150-450) k/uL Neutrophils % 58 % Lymphocytes % 30 % Monocytes % 5 % Eosinophils % 3 % Basophils % 0 % Neutrophils # 4.4 (1.3-7.7) k/uL Lymphocytes # 2.3 (1.0-4.8) k/uL Monocytes # 0.4 (0-1.0) k/uL Eosinophils # 0.2 (0-0.7) k/uL Basophils # 0.0 (0-0.2) k/uL Hypochromasia Moderate Sodium 143 (137-145) mmol/L Potassium 4.2 (3.5-5.1) mmol/L Chloride 106 (98-107) mmol/L Carbon Dioxide 25 (22-30) mmol/L Anion Gap 12 mmol/L BUN 13 (7-17) mg/dL Creatinine 0.71 (0.52-1.04) mg/dL Est GFR (CKD-EPI)AfAm >90 (>60 ml/min/1.73 sqM) Est GFR (CKD-EPI)NonAf >90 (>60 ml/min/1.73 sqM) Glucose 79 (74-99) mg/dL Calcium 8.9 (8.4-10.2) mg/dL Total Bilirubin 0.3 (0.2-1.3) mg/dL AST 21 (14-36) U/L ALT 24 (9-52) U/L Alkaline Phosphatase 92 (38-126) U/L Total Protein 6.7 (6.3-8.2) g/dL Albumin 3.8 (3.5-5.0) g/dL Amylase (30-110) U/L Lipase (23-300) U/L Urine Color Urine Appearance (Clear) Urine pH (5.0-8.0) Ur Specific [place] (1.001-1.035) Urine Protein (Negative) Urine Glucose (UA) (Negative) Urine Ketones (Negative) Urine Blood (Negative) Urine Nitrite (Negative) Urine Bilirubin (Negative) Urine Urobilinogen (<2.0) mg/dL Ur Leukocyte Esterase (Negative) Urine RBC (0-5) /hpf Urine WBC (0-5) /hpf Ur Squamous Epith Cells (0-4) /hpf Urine Bacteria (None) /hpf Urine Mucus (None) /hpf Urine HCG, Qual (Not Detectd) - Radiology Data Radiology results: report reviewed (CT of pelvis negative for acute disease), image reviewed Disposition Clinical Impression: Abdominal pain Disposition: HOME SELF-CARE Condition: Good Instructions (If sedation given, give patient instructions): Abdominal Pain (ED) Is patient prescribed a controlled substance at d/c from ED?: No Referrals: Nahid Durbin MD [Primary Care Provider] - 1-2 days
[2018-11-09] MEDS ORDERED: ONDANSETRON 4 MG/2 ML VIAL IVP STA (04:50)
[2018-11-09] MEDS ORDERED: SODIUM CHLORIDE 0.9% 1,000 ML IV STA (04:50)
[2018-11-09] MEDS ORDERED: MORPHINE SULFATE 4 MG/ML SYRINGE IV STA (04:50)
[2018-11-09 05:01] LABS: Appearance,Urine Cloudy (Clear); Bacteria,Urine Rare /hpf; Bilirubin,Urine Negative (Negative); Blood,Urine Negative (Negative); Color,Urine Yellow; Glucose,Urine (UA) Negative (Negative); Ketones,Urine Negative (Negative); Leukocyte Esterase,Urine Trace (Negative); Mucus,Urine Occasional /hpf; Nitrite,Urine Negative (Negative); Protein,Urine Negative (Negative); RBC,Urine 1 /hpf (0-5); Specific Gravity,Urine 1.021 (1.001-1.035); Squamous Epithelial Cell,Urine 5 /hpf (0-4)
[2018-11-09 05:16] LABS: African American GFR (CKD) >90 (>60 ml/min/1.73 sqM); Amylase 67 U/L (30-110); Anion Gap 9 mmol/L; Blood Urea Nitrogen 14 mg/dL (7-17); Calcium 8.7 mg/dL (8.4-10.2); Carbon Dioxide 21 mmol/L (22-30); Chloride 109 mmol/L (98-107); Glucose 84 mg/dL (74-99); Sodium 139 mmol/L (137-145); Total Bilirubin 0.6 mg/dL (0.2-1.3)
[2018-11-09 05:18] LABS: Potassium 5.4 mmol/L (3.5-5.1); Total Protein 6.3 g/dL (6.3-8.2)
[2018-11-09 05:19] LABS: ALT 26 U/L (9-52); AST 35 U/L (14-36); Albumin 3.6 g/dL (3.5-5.0); Alkaline Phosphatase 69 U/L (38-126)
[2018-11-09 05:48] LABS: Basophils % (A) 0 %; Eosinophils # (A) 0.2 k/uL (0-0.7); Eosinophils % (A) 3 %; HGB 11.3 gm/dL (11.4-16.0); Hypochromasia Moderate; Lymphocytes # (A) 2.3 k/uL (1.0-4.8); Lymphocytes % (A) 30 %; MCH 24.5 pg (25.0-35.0); MCHC 29.8 g/dL (31.0-37.0); MCV 82.4 fL (80.0-100.0); Mean Platelet Volume 6.7; Monocytes # (A) 0.4 k/uL (0-1.0); Monocytes % (A) 5 %; Neutrophils # (A) 4.4 k/uL (1.3-7.7); Neutrophils % (A) 58 %; Platelet Count 335 k/uL (150-450); RBC 4.61 m/uL (3.80-5.40); RDW 14.1 % (11.5-15.5); WBC 7.6 k/uL (3.8-10.6)
--- NOTE | 2018-11-09 06:03 | CT ---
EXAM: CT Abdomen and Pelvis With Intravenous Contrast CLINICAL HISTORY: Diffuse abdominal pain, nausea, appendectomy and cholecystectomy TECHNIQUE: Axial computed tomography images of the abdomen and pelvis with intravenous contrast. CTDI is 22.3, 15.4 mGy and DLP is 1871.7 mGy-cm. This CT exam was performed using one or more of the following dose reduction techniques: automated exposure control, adjustment of the mA and/or kV according to patient size, and/or use of iterative reconstruction technique. CONTRAST: 100 cc of Isovue-300. COMPARISON: 04/25/15 FINDINGS: Lung bases: Unremarkable. No mass. No consolidation. Mediastinum: Small hiatal hernia. ABDOMEN: Liver: Unremarkable. No mass. Gallbladder and bile ducts: Status post cholecystectomy. Prominent bile duct likely related to prior cholecystectomy. Pancreas: Unremarkable. No mass. No ductal dilation. Spleen: Unremarkable. No splenomegaly. Adrenals: Unremarkable. No mass. Kidneys and ureters: Unremarkable. No solid mass. No hydronephrosis. Stomach and bowel: Moderate retained stool. Status post gastric surgery. No focal small bowel dilatation. No mucosal thickening. PELVIS: Appendix: No findings to suggest acute appendicitis. Bladder: Unremarkable. No mass. Reproductive: Unremarkable as visualized. ABDOMEN and PELVIS: Intraperitoneal space: Unremarkable. No free air. No significant fluid collection. Bones/joints: Mild degenerative changes in the spine. No acute fracture. No dislocation. Soft tissues: Unremarkable. Vasculature: Unremarkable. No abdominal aortic aneurysm. Lymph nodes: Unremarkable. No enlarged lymph nodes. IMPRESSION: 1. Nonspecific bowel gas pattern with moderate retained stool. 2. No free fluid or free air.
[2018-11-09 06:05] LABS: ALT 24 U/L (9-52); AST 21 U/L (14-36); African American GFR (CKD) >90 (>60 ml/min/1.73 sqM); Albumin 3.8 g/dL (3.5-5.0); Alkaline Phosphatase 92 U/L (38-126); Anion Gap 12 mmol/L; Blood Urea Nitrogen 13 mg/dL (7-17); Calcium 8.9 mg/dL (8.4-10.2); Carbon Dioxide 25 mmol/L (22-30); Chloride 106 mmol/L (98-107); Glucose 79 mg/dL (74-99); Potassium 4.2 mmol/L (3.5-5.1); Sodium 143 mmol/L (137-145); Total Bilirubin 0.3 mg/dL (0.2-1.3); Total Protein 6.7 g/dL (6.3-8.2)
[2018-11-09] MEDS ORDERED: METOCLOPRAMIDE 5 MG/ML 2 ML VIAL IVP STA (06:17)
[2018-11-09] MEDS ORDERED: diphenhydrAMINE 50 MG/ML 1 ML VIAL IVP STA (06:17)
[2018-11-09] MEDS ORDERED: ONDANSETRON 4 MG ODT STARTER PACK 2 TAB BTL PO STA (06:17)
[2018-11-09 06:37] VITALS: BP 129/67; PULSE 70; RESP 18; TEMP 97.7
== END 2018-11-09 06:34 | disposition home or self-care (01) ==
LOC: EC 03:55
DX: R10.84 Generalized abdominal pain (principal); R11.0 Nausea; M79.7 Fibromyalgia; F32.9 Major depressive disorder, single episode, unspecified; F41.9 Anxiety disorder, unspecified; Z88.1 Allergy status to other antibiotic agents; Z88.8 Allergy status to other drugs, medicaments and biological substances; Z79.899 Other long term (current) drug therapy; Z86.69 Personal history of other diseases of the nervous system and sense organs; Z90.49 Acquired absence of other specified parts of digestive tract; Z98.84 Bariatric surgery status
CPT/HCPCS: 99284; 96374; 96375 ×3; 96361; 36415; 80053; 82150; 83690; 85025; 81001; 81025; 74177; J2270; J1200; J2765; J2405; S0119; Q9967

== ENCOUNTER → 2018-11-19 | Outpatient (CLI) | payer OTHER ==
--- NOTE | 2018-11-20 01:15 | MR ---
EXAMINATION TYPE: MR ankle LT wo con DATE OF EXAM: 11/19/2018 COMPARISON: None HISTORY: Patient presents with left ankle pain and swelling getting worse for 1 year. Hx of surgery o n ankle. Standard multiplanar, multisequence MRI departmental protocol Multiplanar, multisequence images of the left ankle were acquired. FINDINGS: There is ankle joint effusion. There is subcutaneous edema around the lower tibia and fibul a. Achilles tendon is intact. Plantar fascia appears intact. The medial and lateral flexor tendons of the ankle appear intact. Subtalar joint is intact. I see no bony destructive process. Collateral lig aments are intact. IMPRESSION: Ankle joint effusion. No fracture seen. This is consistent with synovitis.Subcutaneous edema. No evid ence of ligament or tendon tear. No significant joint space narrowing.
== END | disposition home or self-care (01) ==
LOC: RADMRIMAIN 20:49
PROVIDERS: ATTEND Podiatrist Foot & Ankle Surgery
DX: M25.472 Effusion, left ankle (principal)

== ENCOUNTER → 2018-12-22 | Outpatient (CLI) | payer OTHER ==
[2018-12-22 17:15] LABS: Basophils % (A) 1 %; Eosinophils # (A) 0.2 k/uL (0-0.7); Eosinophils % (A) 3 %; HCT 37.8 % (34.0-46.0); HGB 11.9 gm/dL (11.4-16.0); Hypochromasia Slight; Lymphocytes # (A) 2.6 k/uL (1.0-4.8); Lymphocytes % (A) 30 %; MCH 25.6 pg (25.0-35.0); MCHC 31.5 g/dL (31.0-37.0); MCV 81.1 fL (80.0-100.0); Mean Platelet Volume 6.9; Monocytes # (A) 0.5 k/uL (0-1.0); Monocytes % (A) 6 %; Neutrophils # (A) 5.2 k/uL (1.3-7.7); Neutrophils % (A) 60 %; Platelet Count 365 k/uL (150-450); RBC 4.67 m/uL (3.80-5.40); WBC 8.7 k/uL (3.8-10.6)
[2018-12-23 01:09] LABS: African American GFR (CKD) 119.6 (60.0-200.0); Albumin 4.4 g/dL (3.80-4.90); Albumin/Globulin Ratio 2.75 (1.60-3.17); Anion Gap 8.7 mmol/L (4.00-12.00); Carbon Dioxide 25.3 mmol/L (21.6-31.8); Globulin 1.6 g/dL (1.6-3.3); Potassium 4.4 mmol/L (3.5-5.5); Total Bilirubin 0.3 mg/dL (0.3-1.2)
[2018-12-23 01:14] LABS: T4, Free (Free Thyroxine) 1.1 ng/dL (0.80-1.80)
[2018-12-23 01:32] LABS: Iron Saturation 3.98 (12.00-45.00)
== END | disposition home or self-care (01) ==
LOC: LABWHC1 16:15
PROVIDERS: ATTEND Internal Medicine Cardiovascular Disease
DX: E55.9 Vitamin D deficiency, unspecified (principal); R00.0 Tachycardia, unspecified; N91.2 Amenorrhea, unspecified; E66.9 Obesity, unspecified; D51.9 Vitamin B12 deficiency anemia, unspecified; R00.2 Palpitations; R53.83 Other fatigue
CPT/HCPCS: 36415; 80053; 82306; 82607; 83540; 83550; 84439; 84443; 84481; 85025

== ENCOUNTER 2018-12-25 14:25 | Emergency (ER) | payer OTHER ==
[2018-12-25 14:32] VITALS: RESP 18; TEMP 98.6
[2018-12-25] MEDS ORDERED: SODIUM CHLORIDE 0.9% 1,000 ML IV STA ×2 (15:09)
[2018-12-25] MEDS ORDERED: ASPIRIN 81 MG PO STA (15:09)
[2018-12-25] MEDS ORDERED: NITROGLYCERIN SL TABS 0.4 MG TAB SUBLINGUAL STA (15:09)
[2018-12-25 15:23] LABS: Appearance,Urine Clear (Clear); Bilirubin,Urine Negative (Negative); Blood,Urine Negative (Negative); Color,Urine Light Yellow; Glucose,Urine (UA) Negative (Negative); Ketones,Urine Negative (Negative); Leukocyte Esterase,Urine Negative (Negative); Nitrite,Urine Negative (Negative); Protein,Urine Negative (Negative); Specific Gravity,Urine 1.008 (1.001-1.035); Urobilinogen,Urine <2.0 mg/dL (<2.0)
--- NOTE | 2018-12-25 15:31 | ED ---
Chest Pain HPI - General Source: patient, RN notes reviewed, old records reviewed Mode of arrival: ambulatory Limitations: no limitations <Nani Fritz - Last Filed: 12/25/18 18:04> <Jose Alejandro Sapp - Last Filed: 12/25/18 19:40> - General Chief Complaint: Chest Pain Stated Complaint: Chest pain, heart racing Time Seen by Provider: 12/25/18 14:57 - History of Present Illness Initial Comments: 23-year-old female presents today with onset of chest pain today. Patient states she's been having episodes of tachycardia and palpitations. Patient reports she's been having these episodes palpitations and has seen barrelhead inspector Dr. Abran Beaulieu. They have her on a third-degree heart monitor. She denies any syncopal episodes. states that she's had no fevers or chills. (Nani Fritz) - Related Data Home Medications Medication Instructions Recorded Confirmed tiZANidine HCL [Zanaflex] 4 - 8 mg PO HS PRN 01/12/15 12/25/18 DULoxetine HCL [Cymbalta] 60 mg PO BID 01/05/16 12/25/18 Loratadine [Claritin] 10 mg PO DAILY 03/16/16 12/25/18 Ergocalciferol [Vitamin D2 50,000 unit PO FR 08/08/17 12/25/18 (DRISDOL)] Nadolol [Corgard] 20 mg PO HS 08/08/17 12/25/18 Omeprazole [PriLOSEC] 40 mg PO DAILY 08/08/17 12/25/18 lamoTRIgine [LaMICtal] 75 mg PO BID 08/08/17 12/25/18 traMADol HCL [Ultram] 50 mg PO TID PRN 08/08/17 12/25/18 Cyanocobalamin (Vitamin B-12) 1,000 mcg PO BID 10/15/17 12/25/18 [Vitamin B-12] ALPRAZolam [Xanax] 1 mg PO TID PRN 12/25/18 12/25/18 ARIPiprazole [Abilify] 1 mg PO HS 12/25/18 12/25/18 Ferrous Sulfate [Feosol] 325 mg PO DAILY 12/25/18 12/25/18 Montelukast [Singulair] 10 mg PO HS 12/25/18 12/25/18 Pyridoxine [Vitamin B-6] 50 mg PO DAILY 12/25/18 12/25/18 Thiamine [Vitamin B-1] 50 mg PO DAILY 12/25/18 12/25/18 Allergies Allergy/AdvReac Type Severity Reaction Status Date / Time asenapine maleate Allergy Rash/Hives Verified 12/25/18 14:51 [From Saphris] cefaclor [From Ceclor] Allergy Rash/Hives Verified 12/25/18 14:51 Review of Systems ROS Other: All systems not noted in ROS Statement are negative. <Nani Fritz - Last Filed: 12/25/18 18:04> ROS Other: All systems not noted in ROS Statement are negative. <Jose Alejandro Sapp - Last Filed: 12/25/18 19:40> ROS Statement: Those systems with pertinent positive or pertinent negative responses have been documented in the HPI. EKG Findings - EKG Comments: EKG Findings:: EKG is performed at 1442 she sinus tachycardia otherwise normal EKG. Ventricular rate of 120 bpm. Verbal 156 most seconds. Chemistry shows 80 ms. QT QTc is 294/4:15 SECONDS. Noticed this elevation. <Nani Fritz - Last Filed: 12/25/18 18:04> Past Medical History Past Medical History: Fibromyalgia Additional Past Medical History / Comment(s): RESTLESS LEG, INSOMNIA, migraines, bulging disc back,HEART PALPATATIONS,bursitis bilateral hips History of Any Multi-Drug Resistant Organisms: None Reported Past Surgical History: Adenoidectomy, Appendectomy, Bariatric Surgery, Cholecystectomy, Ear Surgery, Tonsillectomy Additional Past Surgical History / Comment(s): gastric sleeve-2011,MULT TUBES HENOK EARS, back injections Past Anesthesia/Blood Transfusion Reactions: No Reported Reaction Past Psychological History: Anxiety, Depression Smoking Status: Never smoker Past Alcohol Use History: None Reported Past Drug Use History: None Reported - Past Family History Mother Family Medical History: No Reported History Father Family Medical History: Hypertension <Nani Fritz - Last Filed: 12/25/18 18:04> General Exam Limitations: no limitations General appearance: alert, in no apparent distress Head exam: Present: atraumatic, normocephalic, normal inspection Eye exam: Present: normal appearance, PERRL, EOMI. Absent: scleral icterus, conjunctival injection, periorbital swelling ENT exam: Present: normal exam, mucous membranes moist Neck exam: Present: normal inspection. Absent: tenderness, meningismus, lymphadenopathy Respiratory exam: Present: normal lung sounds bilaterally. Absent: respiratory distress, wheezes, rales, rhonchi, stridor Cardiovascular Exam: Present: regular rate, normal rhythm, normal heart sounds. Absent: systolic murmur, diastolic murmur, rubs, gallop, clicks GI/Abdominal exam: Present: soft, normal bowel sounds. Absent: distended, tenderness, guarding, rebound, rigid Extremities exam: Present: normal inspection, full ROM, normal capillary refill. Absent: tenderness, pedal edema, joint swelling, calf tenderness Back exam: Present: normal inspection Neurological exam: Present: alert, oriented X3, CN II-XII intact Psychiatric exam: Present: normal affect, normal mood Skin exam: Present: warm, dry, intact, normal color. Absent: rash <Nani Fritz - Last Filed: 12/25/18 18:04> - General Exam Comments Initial Comments: This is a 23-year-old female. Alert and oriented 3. No distress. Patient is obese. 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 Short summary occasionally been up to 170. She states she has had some chest and complains of dyspnea on exertion. Patient is morbidly obese but has no other significant risk factors. Nonsmoker. No cardiac history in immediate family of early . Patient case was discussed with Dr. Dr. Ibarra, who reviewed patient's EKG. Stated no significant changes and she can follow-up. Patient will have repeat troponin test is all initial lab tests have been reviewed and unremarkable. Patient will be kept in ED and second troponin will be completed. Final case disposition by Dr. Sapp. (Nani Fritz) Patient care sign out to me by previous shift physician medical support assistant Nani Fritz. Patient was here today for chest pain. Her clinical presentation consistent with atypical chest pain with typical features. Patient is a 23-year-old female without any significant cardiac comorbidities. She does not have any cardiac risk factors. Patient was sent out to me with instructions to follow-up with second troponin. Second troponin is negative. Patient evaluated bedside by a bee in stable condition. Labs and imaging were reviewed. Patient is well- appearing. Patient clear for discharge. She is told to follow-up with her barrelhead inspector. (Jose Alejandro Sapp) Disposition <Nani Fritz - Last Filed: 12/25/18 18:04> Is patient prescribed a controlled substance at d/c from ED?: No Time of Disposition: 19:40 <Jose Alejandro Sapp - Last Filed: 12/25/18 19:40> Clinical Impression: Chest pain Disposition: HOME SELF-CARE Condition: Good Instructions (If sedation given, give patient instructions): Chest Pain (ED) Referrals: Kody Ibarra MD [STAFF PHYSICIAN] - 1-2 days
[2018-12-25 15:33] LABS: Basophils # (A) 0.1 k/uL (0-0.2); Basophils % (A) 1 %; Eosinophils # (A) 0.2 k/uL (0-0.7); Eosinophils % (A) 3 %; HCT 35.9 % (34.0-46.0); HGB 11.2 gm/dL (11.4-16.0); Hypochromasia Slight; Lymphocytes # (A) 1.9 k/uL (1.0-4.8); Lymphocytes % (A) 27 %; MCHC 31.2 g/dL (31.0-37.0); MCV 80.2 fL (80.0-100.0); Mean Platelet Volume 6.5; Monocytes # (A) 0.4 k/uL (0-1.0); Monocytes % (A) 5 %; Neutrophils # (A) 4.3 k/uL (1.3-7.7); Neutrophils % (A) 62 %; Platelet Count 275 k/uL (150-450); RBC 4.48 m/uL (3.80-5.40); RDW 14.2 % (11.5-15.5); WBC 6.9 k/uL (3.8-10.6)
[2018-12-25 15:40] LABS: ALT 17 U/L (9-52); AST 19 U/L (14-36); African American GFR (CKD) >90 (>60 ml/min/1.73 sqM); Albumin 3.9 g/dL (3.5-5.0); Alkaline Phosphatase 96 U/L (38-126); Amylase 58 U/L (30-110); Anion Gap 8 mmol/L; Blood Urea Nitrogen 15 mg/dL (7-17); Carbon Dioxide 26 mmol/L (22-30); Chloride 106 mmol/L (98-107); Glucose 85 mg/dL (74-99); Magnesium 1.9 mg/dL (1.6-2.3); Potassium 3.9 mmol/L (3.5-5.1); Sodium 140 mmol/L (137-145); Total Bilirubin 0.2 mg/dL (0.2-1.3); Total Protein 6.5 g/dL (6.3-8.2)
[2018-12-25 15:45] LABS: D-Dimer <0.17 mg/L FEU (<0.60); INR 0.9 (<1.2); Partial Thromboplastin Time 24.4 sec (22.0-30.0); Prothrombin Time 9.8 sec (9.0-12.0)
--- NOTE | 2018-12-25 16:06 | XR ---
EXAMINATION TYPE: XR chest 2V DATE OF EXAM: 12/25/2018 COMPARISON: 10/15/2017 HISTORY: 23-year-old female with chest pain TECHNIQUE: PA and lateral views FINDINGS: Heart normal size. Aorta and pulmonary vasculature within normal limits. Some scattered strandy atele ctasis. No consolidation or pleural effusion. External groundwater monitoring technician is present overlying the anter ior left chest. IMPRESSION: No acute cardiopulmonary process.
[2018-12-25] MEDS ORDERED: LORazepam 2 MG/ML INJ IV STA (16:09)
[2018-12-25 19:55] VITALS: BP 162/110; PULSE 101
== END 2018-12-25 19:58 | disposition home or self-care (01) ==
LOC: EC 14:25
DX: R07.89 Other chest pain (principal); R06.09 Other forms of dyspnea; R00.0 Tachycardia, unspecified; R00.2 Palpitations; M79.7 Fibromyalgia; F41.9 Anxiety disorder, unspecified; F32.9 Major depressive disorder, single episode, unspecified; Z79.899 Other long term (current) drug therapy; Z88.8 Allergy status to other drugs, medicaments and biological substances; Z88.1 Allergy status to other antibiotic agents; Z53.8 Procedure and treatment not carried out for other reasons
CPT/HCPCS: 36415; 93005; 85379; 80053; 84443; 82150; 83690; 83735; 84484; 85025; 85610; 85730; 81003; 71046; 99285; 96374; 96361 ×2; J2060

== ENCOUNTER → 2019-01-07 | Outpatient (CLI) | payer OTHER ==
--- NOTE | 2019-01-07 15:38 | P.PN ---
Subjective Progress Note Date: 01/07/19 DATE OF SERVICE: 01/07/2019 CHIEF COMPLAINT: Morbid obesity HISTORY OF PRESENT ILLNESS: Soni Mtz is a 23-year-old female who had a prior history of sleeve gastrectomy done over 4 years ago in 2011 at the age of [age] years old. At that time, she had weighed 297 pounds, BMI 46.5, now she comes in with moderate weight gain up to 322 pounds, now BMI 50.6. She reports trouble with mental health with moving out of her mother's house. She has changes with medication including Abilify known for weight gain. She reports moderate weight gain with Abilify over 60+ pounds. She has been lost to follow up for over 4 years since last seen. She reports epigastric abdominal pain. At height of 5 foot 7 inches, ideal body weight is 158 pounds. Prior highest weight was 46.5 with weight of 297 pounds. Today she comes in 322 pounds from 244 pounds, 4 years ago. She has gained 79 pounds in 4 years. She now presents at her highest lifetime weight of 322 pounds with BMI 50.6. PAST MEDICAL HISTORY: 1. Morbid obesity due to excess calories, now 50.6 2. 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 3. Fibromyalgia. 4. Osteoarthritis of the bilateral knees. 5. Depression. 6. Hypertensive heart disease 7. Vitamin D deficiency 8. Anxiety disorder 9. Asthma 10. Irritable bowel syndrome 11. Iron deficiency anemia PAST SURGICAL HISTORY: 1. Sleeve gastrectomy, 2011 2. Cholecystectomy. 3. Upper endoscopy. MEDICATIONS: Home Medications Medication Instructions Recorded Confirmed Loratadine [Claritin] 10 mg PO DAILY 03/16/16 02/26/19 Ergocalciferol [Vitamin D2 50,000 unit PO MO 08/08/17 02/26/19 (DRISDOL)] Nadolol [Corgard] 20 mg PO HS 08/08/17 02/26/19 Omeprazole [PriLOSEC] 40 mg PO DAILY 08/08/17 02/26/19 lamoTRIgine [LaMICtal] 75 mg PO BID 08/08/17 02/26/19 Cyanocobalamin (Vitamin B-12) 1,000 mcg PO DAILY 10/15/17 02/26/19 [Vitamin B-12] ALPRAZolam [Xanax] 1 mg PO HS 12/25/18 02/26/19 Montelukast [Singulair] 10 mg PO HS 12/25/18 02/26/19 ALPRAZolam [Xanax] 0.5 mg PO DAILY@0800,1300 02/18/19 02/26/19 tiZANidine HCL [Zanaflex] 4 mg PO TID PRN 02/18/19 02/26/19 Azithromycin [Zithromax Z-pack] See Taper PO DAILY 02/26/19 02/26/19 Calcium Carbonate [Calcium] 600 mg PO DAILY 02/26/19 02/26/19 Dicyclomine [Bentyl] 10 mg PO TID PRN 02/26/19 02/26/19 Ferrous Sulfate [Feosol] 325 mg PO DAILY 02/26/19 02/26/19 Previous Rx's Medication Instructions Recorded Sucralfate [Carafate] 1 gm PO BID #60 tablet 02/27/19 ALLERGIES: SAPHRIS, CECLOR. Allergies Allergy/AdvReac Type Severity Reaction Status Date / Time asenapine maleate Allergy Rash/Hives Verified 02/26/19 18:17 [From Saphris] cefaclor [From Ceclor] Allergy Rash/Hives Verified 02/26/19 18:17 SOCIAL HISTORY: No active tobacco use. FAMILY HISTORY: Pertinent for morbid obesity. REVIEW OF SYSTEMS: CONSTITUTIONAL: At height of 5 foot 7 inches, ideal body weight is 158 pounds. Her highest lifetime weight of 322 pounds with BMI 50.6. PSYCH: She has multiple changes in anti-depressive medications. Has anxiety. GENITOURINARY: Takes control pill. RESPIRATORY: Has trouble sleeping. Has obstructive sleep apnea. GASTROINTESTINAL: Has irritable bowel disease. History of gastroesophageal reflux disease. MUSCULOSKELETAL: History of lower back pain. Has reports bilateral hip and knee pain. NEUROLOGICAL: History of fibromyalgia. No seizure disorder. CARDIOVASCULAR: History of hypertension. Past chest pain. HEENT: Denies any trouble with vision, hearing or nosebleeds. No difficulty swallowing. LYMPHATIC: The patient denies any lumps and bumps around the neck. ENDOCRINE: Denies any thyroid disorders. Denies any blood sugar glucose intolerance. HEMATOLOGIC: Denies any abnormal bleeding or bruising. PHYSICAL EXAM: VITAL SIGNS: 5 feet 7 inches; 322 pounds. BMI 50.6 Vital Signs Temp 98.2 F 01/07/19 15:00 Pulse 97 01/07/19 15:00 Resp BP 125/65 01/07/19 15:00 Pulse Ox GENERAL: Well-developed female no acute distress. ABDOMEN: Soft, nontender. No peritonitis. MUSCULOSKELETAL: No clubbing, cyanosis. CARDIOVASCULAR: Regular rate. HEENT: No sclerae icterus. Extraocular movements grossly intact. Moist buccal mucosa. NECK: Supple without lymphadenopathy. CHEST: Unlabored respirations. Equal breath. NEURO: No focal or lateralizing signs. Cranial nerves II to XII intact. PSYCH: Appropriate affect. Alert and oriented to person, place and time. SKIN: Good skin turgor. Well perfused. ASSESSMENT: 1. Morbid obesity due to excess caloric intake, now 50.6 2. Body mass index prior 46.5 3. Epigastric abdominal pain. 4. Irritable bowel syndrome. 5. Status post sleeve gastrectomy. 6. 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 7. Dietary surveillance and counseling. 8. Vitamin D deficiency. 9. Secondary hyperparathyroidism. 10. Sleep disorder. 11. Status post weight gain following sleeve gastrectomy. 12. Adverse reactions from her medications with weight gain. 13. Iron deficiency anemia. PLAN: 1. Recommend bariatric labs including evaluation for thiamine deficiency 2. May need iron infusion for iron deficiency anemia. 3. Follow up in 3 weeks.
[2019-01-08 00:31] LABS: Vitamin D 25 Hydroxy 42.7 ng/mL (30.0-100.0)
[2019-01-08 00:38] LABS: Chol/HDL Ratio 2.24; LDL Cholesterol,Calculated 53.8 mg/dL (0.0-131.0); VLDL Calculation 23.2 mg/dL (5.00-40.00)
[2019-01-08 01:13] LABS: Hemoglobin A1C 5.4 % (4.0-6.0)
[2019-01-08 12:41] LABS: Zinc, Serum 49 ug/dL (60-130)
[2019-01-08 13:18] LABS: Folate, Serum 18.3 ng/mL
[2019-01-09 07:25] LABS: Vitamin A 48 ug/dL (38-106)
[2019-01-09 09:09] VITALS: BP 125/65; PULSE 97; TEMP 98.2; BMI 50.5
[2019-01-10 13:49] LABS: Vit B1(Thiamine) 85 ug/L (38-122)
[2019-01-13 18:25] LABS: Selenium 121 mcg/L (63-160)
== END | disposition home or self-care (01) ==
LOC: BARWHC3 14:00
PROVIDERS: ATTEND Surgery Plastic and Reconstructive Surgery
DX: E66.01 Morbid (severe) obesity due to excess calories (principal); R10.13 Epigastric pain; K58.9 Irritable bowel syndrome, unspecified; K22.10 Ulcer of esophagus without bleeding; E55.9 Vitamin D deficiency, unspecified; N25.81 Secondary hyperparathyroidism of renal origin; G47.9 Sleep disorder, unspecified; R63.5 Abnormal weight gain; D50.9 Iron deficiency anemia, unspecified; Z71.3 Dietary counseling and surveillance; Z98.84 Bariatric surgery status; Z90.49 Acquired absence of other specified parts of digestive tract; Z79.899 Other long term (current) drug therapy; Z88.1 Allergy status to other antibiotic agents; Z88.8 Allergy status to other drugs, medicaments and biological substances
CPT/HCPCS: 84255; 84425; 80061; 82525; 82746; 84590; 84630; 82306; 83970; 83036; G0463; 99211

== ENCOUNTER → 2019-01-28 | Outpatient (CLI) | payer OTHER | END | disposition home or self-care (01) | LOC: LABWHC1 16:14 | PROVIDERS: ATTEND Obstetrics & Gynecology | DX: N91.2 Amenorrhea, unspecified (principal) | CPT/HCPCS: 36415; 84702 ==

== ENCOUNTER → 2019-02-04 | Outpatient (CLI) | payer OTHER ==
[2019-02-04 14:18] VITALS: BP 130/88; PULSE 92; RESP 16; TEMP 98; BMI 51.0
--- NOTE | 2019-02-04 15:29 | P.PN ---
Subjective Progress Note Date: 02/04/19 Mood medications needed. PTH is elevated. Low iron. Needs infusion. Zinc is low. She has diarrhea. Recommend iron calcium supplement. Needs EGD. US neck for elevated PTH. Colonoscopy for diarrhea. Objective - Vital Signs Vital signs: Vital Signs Temp 98 F 02/04/19 14:15 Pulse 92 02/04/19 14:15 Resp 16 02/04/19 14:15 BP 130/88 02/04/19 14:15 Pulse Ox Intake & Output 02/03/19 02/04/19 02/04/19 18:59 06:59 18:59 Weight 147.871 kg
== END | disposition home or self-care (01) ==
LOC: BARWHC3 13:50
PROVIDERS: ATTEND Surgery Plastic and Reconstructive Surgery
DX: R19.7 Diarrhea, unspecified (principal); E21.3 Hyperparathyroidism, unspecified; E61.1 Iron deficiency; E60 Dietary zinc deficiency
CPT/HCPCS: 99211

== ENCOUNTER → 2019-02-12 | Outpatient (CLI) | payer OTHER ==
--- NOTE | 2019-02-12 15:07 | US ---
EXAMINATION TYPE: US thyroid st tissue head/neck DATE OF EXAM: 02/12/2019 COMPARISON: NONE CLINICAL HISTORY: R94.6 Abnormal thyroid labs, R22.0 mass and lump. Pt states abnormal labs of the pa rathyroid GLAND SIZE: Right Lobe: 5.6 x 1.7 x 1.4 cm Overall Parenchyma: homogenous Left Lobe: 4.2 x 1.3 x 1.7 cm Overall Parenchyma: homogeneous Isthmus Thickness: 0.4 cm Bilateral neck scanned, no evidence of lymphadenopathy. Bilateral thyroid appeared wnl. Please note b ilateral parathyroid area scanned and no abnormality was visualized. IMPRESSION: Thyromegaly. No thyroid nodule. Homogeneous echotexture.
== END | disposition home or self-care (01) ==
LOC: RADUSWWP 14:07
PROVIDERS: ATTEND Surgery Plastic and Reconstructive Surgery
DX: E04.9 Nontoxic goiter, unspecified (principal)
CPT/HCPCS: 76536

== ENCOUNTER 2019-02-23 13:53 | Day surgery (SDC) | payer OTHER ==
[2019-02-18 17:34] VITALS: BMI 51.0
--- NOTE | 2019-02-23 05:49 | P.GSHP ---
History of Present Illness H&P Date: 02/23/19 CHIEF COMPLAINT: GERD and colon screen HISTORY OF PRESENT ILLNESS: The patient is a 23-year-old female who presents with gastroesophageal reflux disease and change in bowel habits. Upper and lower endoscopy were offered for further evaluation and management. PAST MEDICAL HISTORY: Please see list. PAST SURGICAL HISTORY: Please see list. MEDICATIONS: Please see list. ALLERGIES: Please see list. SOCIAL HISTORY: No illicit drug use FAMILY HISTORY: No reports of Crohn disease or ulcerative colitis. REVIEW OF ORGAN SYSTEMS: CONSTITUTIONAL: No reports of fevers or chills. PHYSICAL EXAM: VITAL SIGNS: Stable GENERAL: Well-developed pleasant in no acute distress. HEENT: No scleral icterus. Extraocular movements grossly intact. Moist buccal mucosa. NECK: Supple without lymphadenopathy. CHEST: Unlabored respirations. Equal bilateral excursions. CARDIOVASCULAR: Regular rate and rhythm. Distal 2+ pulses. ABDOMEN: Soft, nondistended. MUSCULOSKELETAL: No clubbing, cyanosis, or edema. ASSESSMENT: 1. Gastroesophageal reflux disease 2. Change in bowel habits. PLAN: 1. Recommend proceeding with an upper and lower endoscopy Past Medical History Past Medical History: Fibromyalgia, GERD/Reflux, Hypertension Additional Past Medical History / Comment(s): OCCASIONAL RESTLESS LEGS, MIGRAINES, STATES IRREGULAR HEART BEAT, LOW IRON - STATES IRON TRANSFUSIONS FEB 2019, STATES INCREASED ACID REFLUX AND HAVING FREQUENT LOOSE STOOLS. History of Any Multi-Drug Resistant Organisms: None Reported Past Surgical History: Adenoidectomy, Appendectomy, Bariatric Surgery, Cholecystectomy, Ear Surgery, Tonsillectomy Additional Past Surgical History / Comment(s): gastric sleeve-2011 in [place],MULT TUBES HENOK EARS, back injections Past Anesthesia/Blood Transfusion Reactions: No Reported Reaction Past Psychological History: Anxiety, Depression Additional Psychological History / Comment(s): . Smoking Status: Never smoker Past Alcohol Use History: None Reported Past Drug Use History: None Reported - Past Family History Mother Family Medical History: No Reported History Father Family Medical History: Hypertension Medications and Allergies Home Medications Medication Instructions Recorded Confirmed Type DULoxetine HCL [Cymbalta] 60 mg PO HS 01/05/16 02/18/19 History Loratadine [Claritin] 10 mg PO DAILY 03/16/16 02/18/19 History Ergocalciferol [Vitamin D2 50,000 unit PO WEEKLY 08/08/17 02/18/19 History (DRISDOL)] Nadolol [Corgard] 20 mg PO DAILY 08/08/17 02/18/19 History Omeprazole [PriLOSEC] 40 mg PO DAILY 08/08/17 02/18/19 History lamoTRIgine [LaMICtal] 75 mg PO BID 08/08/17 02/18/19 History Cyanocobalamin (Vitamin B-12) 1,000 mcg PO BID 10/15/17 02/18/19 History [Vitamin B-12] ALPRAZolam [Xanax] 1 mg PO HS 12/25/18 02/18/19 History Montelukast [Singulair] 10 mg PO DAILY 12/25/18 02/18/19 History ALPRAZolam [Xanax] 0.5 mg PO DAILY@0800,1300 PRN 02/18/19 02/18/19 History tiZANidine HCL [Zanaflex] 4 mg PO HS 02/18/19 02/18/19 History Allergies Allergy/AdvReac Type Severity Reaction Status Date / Time asenapine maleate Allergy Rash/Hives Verified 02/18/19 17:01 [From Saphris] cefaclor [From Ceclor] Allergy Rash/Hives Verified 02/18/19 17:01
[~2019-02-23 13:53] MED LIST: LACTATED RINGERS 1,000 ML IV SCH; LIDOCAINE 1% 20 ML VIAL (10MG/ML) FOR IV START INTRADERMA PRN
[2019-02-23 14:25] VITALS: TEMP 97.2
[2019-02-23] MEDS ORDERED: PROPOFOL 10 MG/ML 20 ML VIAL IV ONE (14:31)
[2019-02-23] MEDS ORDERED: LIDOCAINE 1% INJ 10MG/ML (20 ML MDV) ONE (14:31)
--- NOTE | 2019-02-23 15:00 | P.PCN ---
Date of Procedure: 02/23/19 Description of Procedure: PREOPERATIVE DIAGNOSIS: Status post sleeve gastrectomy. Gastroesophageal reflux disease. Epigastric abdominal pain. POSTOPERATIVE DIAGNOSIS: Status post sleeve gastrectomy. Gastroesophageal reflux disease. Epigastric abdominal pain. Erosive esophagitis, chronic. Chronic superficial gastritis. OPERATION: Esophagogastroduodenoscopy with cold forceps biopsies along the antrum. SURGEON: Elis Shi MD ANESTHESIA: MAC. INDICATIONS: The patient is a 23-year-old female who presents with a history of sleeve gastrectomy with abdominal pain and gastroesophageal reflux disease. Benefits and risks of the procedure were described. Informed consent was obtained. DESCRIPTION: The patient was brought into the endoscopy suite and laid in the left lateral decubitus position. An Olympus gastroscope was passed along the posterior oropharynx down to the distal esophagus where the squamocolumnar junction was at 35 centimeters from the incisors remarkable for chronic erosive esophagitis, LA grade C without ulceration. The sleeve reservoir was without portion. Chronic gastritis albeit mild was found along the antrum with cold biopsies obtained. The first through third portion of the duodenum was examined and unremarkable. The stomach was desufflated. The patient tolerated the procedure well. FINDINGS: No acute ulceration found along her sleeve. No corkscrewing sleeve gastrectomy. Squamocolumnar junction at 35 cm from the incisors. Diaphragmatic hiatus at 35 cm. Sleeve gastric reservoir within normal limits LA grade C erosive esophagitis. No active duodenitis. Chronic gastritis. RECOMMENDATIONS: Upper endoscopy as needed.
[2019-02-23 15:01] VITALS: RESP 16
--- NOTE | 2019-02-23 15:04 | P.PCN ---
Date of Procedure: 02/23/19 Description of Procedure: PREOPERATIVE DIAGNOSIS: Change in bowel habits Diffuse abdominal pain POSTOPERATIVE DIAGNOSIS: Change in bowel habits Diffuse abdominal pain OPERATION: 1. Colonoscopy with random cold forceps biopsies for microscopic colitis 2. Colonoscopy to the ileocecal valve and appendiceal orifice. SURGEON: Elis Shi MD. ANESTHESIA: MAC. INDICATIONS: The patient is a 23-year-old female who presents with change in bowel habits diffuse abdominal pain. Benefits and risks were described and informed consent was obtained. DESCRIPTION OF PROCEDURE: The patient had undergone Gatorade, MiraLAX and Dulcolax prep. She had been brought into the operating room and laid in the left lateral decubitus position. After adequate intravenous sedation, the rectum was examined with 2% lidocaine jelly. No external hemorrhoids were encountered. The rectal tone was within normal limits. No lesions were palpated in the rectal vault. An Olympus colonoscope was advanced until the ileocecal valve and appendiceal orifice were clearly viewed. The prep was good. No scattered diverticulosis was encountered. No colonic polyps were found. Random cold forceps biopsies were obtained for microscopic colitis. Retroflexion of the scope demonstrated no internal hemorrhoids. The colon was desufflated. The patient had tolerated the procedure well. Withdrawal time was over 6 minutes. FINDINGS: Aronchick preparation quality scale 2 (1-5) No internal hemorrhoids No diverticulosis No external prolapsed hemorrhoids. No arteriovenous malformations. No adenomatous polyps. RECOMMENDATIONS: Lower endoscopy as needed Plan - Discharge Summary New Discharge Prescriptions: No Action DULoxetine HCL [Cymbalta] 60 mg PO HS Loratadine [Claritin] 10 mg PO DAILY Nadolol [Corgard] 20 mg PO DAILY Omeprazole [PriLOSEC] 40 mg PO DAILY lamoTRIgine [LaMICtal] 75 mg PO BID Ergocalciferol [Vitamin D2 (DRISDOL)] 50,000 unit PO WEEKLY Cyanocobalamin (Vitamin B-12) [Vitamin B-12] 1,000 mcg PO BID Montelukast [Singulair] 10 mg PO DAILY ALPRAZolam [Xanax] 1 mg PO HS ALPRAZolam [Xanax] 0.5 mg PO DAILY@0800,1300 PRN PRN Reason: Anxiety tiZANidine HCL [Zanaflex] 4 mg PO HS Discharge Medication List DULoxetine HCL [Cymbalta] 60 mg PO HS 01/05/16 [History] Loratadine [Claritin] 10 mg PO DAILY 03/16/16 [History] Ergocalciferol [Vitamin D2 (DRISDOL)] 50,000 unit PO WEEKLY 08/08/17 [History] Nadolol [Corgard] 20 mg PO DAILY 08/08/17 [History] Omeprazole [PriLOSEC] 40 mg PO DAILY 08/08/17 [History] lamoTRIgine [LaMICtal] 75 mg PO BID 08/08/17 [History] Cyanocobalamin (Vitamin B-12) [Vitamin B-12] 1,000 mcg PO BID 10/15/17 [History] ALPRAZolam [Xanax] 1 mg PO HS 12/25/18 [History] Montelukast [Singulair] 10 mg PO DAILY 12/25/18 [History] ALPRAZolam [Xanax] 0.5 mg PO DAILY@0800,1300 PRN 02/18/19 [History] tiZANidine HCL [Zanaflex] 4 mg PO HS 02/18/19 [History] [facility] [place] [place] [facility] [place] [facility] Patient Instructions/Handouts: Gastritis (DC) Discharge Disposition: HOME SELF-CARE
[2019-02-23 15:14] VITALS: BP 148/91; PULSE 74
== END 2019-02-23 15:36 | disposition home or self-care (01) ==
LOC: ORWHC2ENDO 13:53
PROVIDERS: ATTEND Surgery Plastic and Reconstructive Surgery
DX: K21.9 Gastro-esophageal reflux disease without esophagitis (principal); K29.50 Unspecified chronic gastritis without bleeding; K63.5 Polyp of colon; K22.10 Ulcer of esophagus without bleeding; Z98.84 Bariatric surgery status; I10 Essential (primary) hypertension; M79.7 Fibromyalgia; G25.81 Restless legs syndrome; G43.909 Migraine, unspecified, not intractable, without status migrainosus; E61.1 Iron deficiency; J45.909 Unspecified asthma, uncomplicated; Z90.49 Acquired absence of other specified parts of digestive tract; F41.9 Anxiety disorder, unspecified; F32.9 Major depressive disorder, single episode, unspecified; Z82.49 Family history of ischemic heart disease and other diseases of the circulatory system; Z79.899 Other long term (current) drug therapy; Z88.8 Allergy status to other drugs, medicaments and biological substances
CPT/HCPCS: 81025; 88305; 45380; 43239; J2001; J2704

== ENCOUNTER 2019-02-26 15:21 | Observation (INO) | payer OTHER ==
[2019-02-26] MEDS ORDERED: PANTOPRAZOLE 40 MG/10 ML VIAL IVP STA (15:52)
[2019-02-26] MEDS ORDERED: SODIUM CHLORIDE 0.9% 1,000 ML IV STA ×2 (15:52)
[2019-02-26] MEDS ORDERED: KETOROLAC 30 MG/ML 1 ML VIAL IVP STA (15:52)
[2019-02-26] MEDS ORDERED: ONDANSETRON 4 MG/2 ML VIAL IVP STA (15:52)
--- NOTE | 2019-02-26 16:12 | ED ---
General Adult HPI - General Chief complaint: Recheck/Abnormal Lab/Rx Stated complaint: vomiting/diarrhea Time Seen by Provider: 02/26/19 15:38 Source: patient, RN notes reviewed, old records reviewed Mode of arrival: ambulatory Limitations: no limitations - History of Present Illness Initial comments: 23-year-old female presents today for nausea, a few episodes of dry heaving, and diarrhea for the past 3 days after her colonoscopy. She reports is is limited Dr. Bryan. She'll surgical history of cholecystectomy, appendectomy and gastric sleeve procedure. She's had her gastric sleeve since she was 15 years old. Patient states that she said no bloody stool. She states it feels like her food and anything she eats runs right through her. She had a colonoscopy to evaluate for concern for dumping syndrome. - Related Data Home Medications Medication Instructions Recorded Confirmed DULoxetine HCL [Cymbalta] 60 mg PO HS 01/05/16 02/23/19 Loratadine [Claritin] 10 mg PO DAILY 03/16/16 02/23/19 Ergocalciferol [Vitamin D2 50,000 unit PO WEEKLY 08/08/17 02/23/19 (DRISDOL)] Nadolol [Corgard] 20 mg PO DAILY 08/08/17 02/23/19 Omeprazole [PriLOSEC] 40 mg PO DAILY 08/08/17 02/23/19 lamoTRIgine [LaMICtal] 75 mg PO BID 08/08/17 02/23/19 Cyanocobalamin (Vitamin B-12) 1,000 mcg PO BID 10/15/17 02/23/19 [Vitamin B-12] ALPRAZolam [Xanax] 1 mg PO HS 12/25/18 02/23/19 Montelukast [Singulair] 10 mg PO DAILY 12/25/18 02/23/19 ALPRAZolam [Xanax] 0.5 mg PO DAILY@0800,1300 PRN 02/18/19 02/23/19 tiZANidine HCL [Zanaflex] 4 mg PO HS 02/18/19 02/23/19 Allergies Allergy/AdvReac Type Severity Reaction Status Date / Time asenapine maleate Allergy Rash/Hives Verified 02/26/19 15:34 [From Saphris] cefaclor [From Ceclor] Allergy Rash/Hives Verified 02/26/19 15:34 Review of Systems ROS Statement: Those systems with pertinent positive or pertinent negative responses have been documented in the HPI. ROS Other: All systems not noted in ROS Statement are negative. Past Medical History Past Medical History: Fibromyalgia, GERD/Reflux, Hypertension Additional Past Medical History / Comment(s): OCCASIONAL RESTLESS LEGS, MIGRAINES, STATES IRREGULAR HEART BEAT, LOW IRON - STATES IRON TRANSFUSIONS FEB 2019, STATES INCREASED ACID REFLUX AND HAVING FREQUENT LOOSE STOOLS. History of Any Multi-Drug Resistant Organisms: None Reported Past Surgical History: Adenoidectomy, Appendectomy, Bariatric Surgery, Cholecystectomy, Ear Surgery, Tonsillectomy Additional Past Surgical History / Comment(s): gastric sleeve-2011 in [place],MULT TUBES HENOK EARS, back injections Past Anesthesia/Blood Transfusion Reactions: No Reported Reaction Past Psychological History: Anxiety, Depression Smoking Status: Never smoker Past Alcohol Use History: None Reported Past Drug Use History: None Reported - Past Family History Mother Family Medical History: No Reported History Father Family Medical History: Hypertension General Exam - General Exam Comments Initial Comments: Well-appearing 23-year-old female. No acute distress. Limitations: no limitations General appearance: alert, in no apparent distress Head exam: Present: atraumatic, normocephalic, normal inspection Eye exam: Present: normal appearance, PERRL, EOMI. Absent: scleral icterus, conjunctival injection, periorbital swelling ENT exam: Present: normal exam, mucous membranes moist Neck exam: Present: normal inspection. Absent: tenderness, meningismus, lympha denopathy Respiratory exam: Present: normal lung sounds bilaterally. Absent: respiratory distress, wheezes, rales, rhonchi, stridor Cardiovascular Exam: Present: regular rate, normal rhythm, normal heart sounds. Absent: systolic murmur, diastolic murmur, rubs, gallop, clicks GI/Abdominal exam: Present: soft, tenderness (Epigastric tenderness.), normal bowel sounds. Absent: distended, guarding, rebound, rigid Extremities exam: Present: normal inspection, full ROM, normal capillary refill. Absent: tenderness, pedal edema, joint swelling, calf tenderness Back exam: Present: normal inspection Neurological exam: Present: alert, oriented X3, CN II-XII intact Psychiatric exam: Present: normal affect, normal mood Skin exam: Present: warm, dry, intact, normal color. Absent: rash Course Vital Signs 02/26/19 02/26/19 15:34 17:00 Temperature 98.2 F Pulse Rate 80 67 Respiratory 18 20 Rate Blood Pressure 144/95 147/85 O2 Sat by Pulse 100 99 Oximetry Medical Decision Making - Medical Decision Making 23-year-old female presents today for evaluation for nausea, episodes of dry heaving and diarrhea too for the past 2 days after colonoscopy. Patient's gastric biopsy shows mild chronic gastritis. There is hyperplastic polyp noted with adjacent benign colonic mucosa without any significant his CPAP changes are noted. Patient's labwork was reviewed and unremarkable. Patient was given [address] bol[address] emergency department. Dr. Bryan, patient's surgeon who did her colono scopy and endoscopy came down to evaluate the Patient. She does have significant dehydration and Dr. Bryan wants the Patient admitted for gastritis and intractable nausea and vomiting. Patient's family Patient understands treatment plan. She is given Protonix, Reglan, and Zofran for nausea. Patient case was discussed with Dr. thurston. - Lab Data Result diagrams: 02/26/19 16:28 02/26/19 16:28 Lab Results 02/26/19 02/26/19 02/26/19 Range/Units 16:28 16:28 16:28 WBC 7.3 (3.8-10.6) k/uL RBC 5.03 (3.80-5.40) m/uL Hgb 13.7 (11.4-16.0) gm/dL Hct 42.4 (34.0-46.0) % MCV 84.4 (80.0-100.0) fL MCH 27.2 (25.0-35.0) pg MCHC 32.2 (31.0-37.0) g/dL RDW 15.1 (11.5-15.5) % Plt Count 300 (150-450) k/uL Neutrophils % 66 % Lymphocytes % 25 % Monocytes % 5 % Eosinophils % 2 % Basophils % 1 % Neutrophils # 4.8 (1.3-7.7) k/uL Lymphocytes # 1.8 (1.0-4.8) k/uL Monocytes # 0.4 (0-1.0) k/uL Eosinophils # 0.2 (0-0.7) k/uL Basophils # 0.1 (0-0.2) k/uL PT (9.0-12.0) sec INR (<1.2) APTT (22.0-30.0) sec Sodium 141 (137-145) mmol/L Potassium 4.3 (3.5-5.1) mmol/L Chloride 105 (98-107) mmol/L Carbon Dioxide 25 (22-30) mmol/L Anion Gap 11 mmol/L BUN 7 (7-17) mg/dL Creatinine 0.66 (0.52-1.04) mg/dL Est GFR (CKD-EPI)AfAm >90 (>60 ml/min/1.73 sqM) Est GFR (CKD-EPI)NonAf >90 (>60 ml/min/1.73 sqM) Glucose 88 (74-99) mg/dL Calcium 9.7 (8.4-10.2) mg/dL Total Bilirubin 0.5 (0.2-1.3) mg/dL AST 29 (14-36) U/L ALT 25 (9-52) U/L Alkaline Phosphatase 100 (38-126) U/L Troponin I (0.000-0.034) ng/mL Total Protein 7.1 (6.3-8.2) g/dL Albumin 4.3 (3.5-5.0) g/dL Amylase 39 (30-110) U/L Lipase 64 (23-300) U/L Urine Color Light Yellow Urine Appearance Clear (Clear) Urine pH 6.0 (5.0-8.0) Ur Specific Somers 1.008 (1.001-1.035) Urine Protein Negative (Negative) Urine Glucose (UA) Negative (Negative) Urine Ketones Negative (Negative) Urine Blood Negative (Negative) Urine Nitrite Negative (Negative) Urine Bilirubin Negative (Negative) Urine Urobilinogen <2.0 (<2.0) mg/dL Ur Leukocyte Esterase Negative (Negative) 02/26/19 02/26/19 Range/Units 16:28 16:28 WBC (3.8-10.6) k/uL RBC (3.80-5.40) m/uL Hgb (11.4-16.0) gm/dL Hct (34.0-46.0) % MCV (80.0-100.0) fL MCH (25.0-35.0) pg MCHC (31.0-37.0) g/dL RDW (11.5-15.5) % Plt Count (150-450) k/uL Neutrophils % % Lymphocytes % % Monocytes % % Eosinophils % % Basophils % % Neutrophils # (1.3-7.7) k/uL Lymphocytes # (1.0-4.8) k/uL Monocytes # (0-1.0) k/uL Eosinophils # (0-0.7) k/uL Basophils # (0-0.2) k/uL PT 9.7 (9.0-12.0) sec INR 0.9 (<1.2) APTT 24.3 (22.0-30.0) sec Sodium (137-145) mmol/L Potassium (3.5-5.1) mmol/L Chloride (98-107) mmol/L Carbon Dioxide (22-30) mmol/L Anion Gap mmol/L BUN (7-17) mg/dL Creatinine (0.52-1.04) mg/dL Est GFR (CKD-EPI)AfAm (>60 ml/min/1.73 sqM) Est GFR (CKD-EPI)NonAf (>60 ml/min/1.73 sqM) Glucose (74-99) mg/dL Calcium (8.4-10.2) mg/dL Total Bilirubin (0.2-1.3) mg/dL AST (14-36) U/L ALT (9-52) U/L Alkaline Phosphatase (38-126) U/L Troponin I <0.012 (0.000-0.034) ng/mL Total Protein (6.3-8.2) g/dL Albumin (3.5-5.0) g/dL Amylase (30-110) U/L Lipase (23-300) U/L Urine Color Urine Appearance (Clear) Urine pH (5.0-8.0) Ur Specific Somers (1.001-1.035) Urine Protein (Negative) Urine Glucose (UA) (Negative) Urine Ketones (Negative) Urine Blood (Negative) Urine Nitrite (Negative) Urine Bilirubin (Negative) Urine Urobilinogen (<2.0) mg/dL Ur Leukocyte Esterase (Negative) - Radiology Data Radiology results: report reviewed Disposition Clinical Impression: Intractable nausea and vomiting, Gastritis, Dehydration Disposition: HOME SELF-CARE Condition: Good Is patient prescribed a controlled substance at d/c from ED?: No Referrals: Nahid Durbin MD [Primary Care Provider] - 1-2 days Time of Disposition: 17:48
[2019-02-26 16:43] LABS: Basophils # (A) 0.1 k/uL (0-0.2); Basophils % (A) 1 %; Eosinophils # (A) 0.2 k/uL (0-0.7); Eosinophils % (A) 2 %; HCT 42.4 % (34.0-46.0); HGB 13.7 gm/dL (11.4-16.0); Lymphocytes # (A) 1.8 k/uL (1.0-4.8); Lymphocytes % (A) 25 %; MCH 27.2 pg (25.0-35.0); MCHC 32.2 g/dL (31.0-37.0); MCV 84.4 fL (80.0-100.0); Mean Platelet Volume 6.5; Monocytes # (A) 0.4 k/uL (0-1.0); Monocytes % (A) 5 %; Neutrophils # (A) 4.8 k/uL (1.3-7.7); Neutrophils % (A) 66 %; Platelet Count 300 k/uL (150-450); RBC 5.03 m/uL (3.80-5.40); RDW 15.1 % (11.5-15.5); WBC 7.3 k/uL (3.8-10.6)
[2019-02-26 16:45] LABS: Appearance,Urine Clear (Clear); Bilirubin,Urine Negative (Negative); Blood,Urine Negative (Negative); Color,Urine Light Yellow; Glucose,Urine (UA) Negative (Negative); Ketones,Urine Negative (Negative); Leukocyte Esterase,Urine Negative (Negative); Nitrite,Urine Negative (Negative); Protein,Urine Negative (Negative); Specific Gravity,Urine 1.008 (1.001-1.035); Urobilinogen,Urine <2.0 mg/dL (<2.0)
[2019-02-26 16:48] LABS: ALT 25 U/L (9-52); AST 29 U/L (14-36); African American GFR (CKD) >90 (>60 ml/min/1.73 sqM); Albumin 4.3 g/dL (3.5-5.0); Alkaline Phosphatase 100 U/L (38-126); Amylase 39 U/L (30-110); Anion Gap 11 mmol/L; Blood Urea Nitrogen 7 mg/dL (7-17); Calcium 9.7 mg/dL (8.4-10.2); Carbon Dioxide 25 mmol/L (22-30); Chloride 105 mmol/L (98-107); Glucose 88 mg/dL (74-99); Non-African American GFR(CKD) >90 (>60 ml/min/1.73 sqM); Potassium 4.3 mmol/L (3.5-5.1); Sodium 141 mmol/L (137-145); Total Bilirubin 0.5 mg/dL (0.2-1.3); Total Protein 7.1 g/dL (6.3-8.2)
[2019-02-26 16:53] LABS: INR 0.9 (<1.2); Partial Thromboplastin Time 24.3 sec (22.0-30.0); Prothrombin Time 9.7 sec (9.0-12.0)
[2019-02-26] MEDS ORDERED: METOCLOPRAMIDE 5 MG/ML 2 ML VIAL IVP STA (17:36)
[2019-02-26] MEDS ORDERED: SODIUM CHLORIDE 0.9% 1,000 ML IV ONE (17:45)
--- NOTE | 2019-02-26 17:46 | XR ---
EXAMINATION TYPE: XR abdomen 1V DATE OF EXAM: 02/26/2019 COMPARISON: 10/16/2014 HISTORY: Abdominal pain TECHNIQUE: 2 views upright FINDINGS: There is no sign of intestinal obstruction or pneumoperitoneum. Fecal pattern is normal. Agnes ng bases are clear. There are clips from cholecystectomy. IMPRESSION: Nonacute abdomen. No change.
[2019-02-26] MEDS ORDERED: MORPHINE SULFATE 4 MG/ML SYRINGE IV PRN (17:50)
[2019-02-26] MEDS ORDERED: NALOXONE 0.4 MG/ML 1 ML VIAL IV PRN (17:50)
[2019-02-26] MEDS ORDERED: ONDANSETRON 4 MG/2 ML VIAL IVP PRN (17:50)
[2019-02-26] MEDS: SODIUM CHLORIDE 0.9% 1,000 ML IV SCH (18:34)
[2019-02-26] MEDS ORDERED: SODIUM CHLORIDE 0.9% 3,000 ML IV ONE (19:00)
--- NOTE | 2019-02-26 19:00 | P.GSHP ---
History of Present Illness H&P Date: 02/26/19 CHIEF COMPLAINT: Intractable nausea and vomiting, severe dehydration HISTORY OF PRESENT ILLNESS: Soni Mtz is a 23-year-old female who presents acutely with intractable nausea and vomiting, inadequate oral intake, severe dehydration including low urine output. She recent colonoscopy 3 days ago as well as upper endoscopy for evaluation for chronic diarrhea including epigastric abdominal pain. Since her procedure, her mother and the patient reports not able to tolerate anything by mouth. She presented to the emergency room severe dehydration including intractable nausea vomiting hence her presentation. She has history of sleeve gastrectomy done in 2010 at the age of [age] years old. She had weighed 297 pounds. Body mass index was 46.5. Today she comes in weighing 322 pounds from 244 pounds, 3 years ago with a 70 pound weight gain. She reports being started on multiple antidepressants and as a result has moderate appetite and weight gain. PAST MEDICAL HISTORY: 1. Morbid obesity. 2. 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 3. Fibromyalgia. 4. Osteoarthritis of the bilateral knees. 5. Depression. 6. Hypertension. 7. Irritable bowel syndrome PAST SURGICAL HISTORY: 1. Sleeve gastrectomy. 2. Cholecystectomy. 3. Upper endoscopy. MEDICATIONS: 1. Wellbutrin. 2. Neurontin. 3. Requip. 4. Fioricet. 5. Klonopin. 6. Bentyl. 7. [place]. 8. Motrin. 9. Cymbalta. 10. Cipro. 11. Phenergan. 12. Bentyl. ALLERGIES: SAPHRIS, CECLOR. SOCIAL HISTORY: No active tobacco use. FAMILY HISTORY: Pertinent for morbid obesity. REVIEW OF SYSTEMS: CONSTITUTIONAL: [place] body weight 158 pounds. Highest weight was 297 pounds, now 322 pounds. Body mass index was 46.5 to 50.6 PSYCH: On multiple psychiatric medications for depression, anxiety GENITOURINARY: She also has discontinued control pill which was also associated with moderate weight regain. RESPIRATORY: Has trouble sleeping. Has obstructive sleep apnea. GASTROINTESTINAL: Has irritable bowel disease. History of gastroesophageal reflux disease. MUSCULOSKELETAL: History of lower back pain. Also reports bilateral hip and knee pain. NEUROLOGICAL: History of fibromyalgia. CARDIOVASCULAR: History of hypertension. HEENT: Denies any trouble with vision, hearing or nosebleeds. No difficulty swallowing. LYMPHATIC: The patient denies any lumps and bumps around the neck. ENDOCRINE: Denies any thyroid disorders. Denies any blood sugar glucose intolerance. HEMATOLOGIC: Denies any abnormal bleeding or bruising. PHYSICAL EXAM: VITAL SIGNS: 5 feet 7 inches; 322 pounds. Body 50.6 GENERAL: Well-developed female no acute distress. ABDOMEN: Soft, nondistended. Diffusely tender. No peritonitis. MUSCULOSKELETAL: No clubbing, cyanosis. CARDIOVASCULAR: Regular rate. HEENT: No sclerae icterus. Extraocular movements grossly intact. Dry buccal mucosa. NECK: Supple without lymphadenopathy. CHEST: Unlabored respirations. Equal breath. NEURO: No focal or lateralizing signs. PSYCH: Appropriate affect. Alert and oriented to person, place and time. SKIN: Poor skin turgor. LABS: White blood cell count normal. Hemoglobin normal STUDIES: Abdominal x-ray apparently reviewed demonstrating no free air. Normal bowel gas pattern with stool PATH: From upper endoscopy demonstrates severe chronic gastritis. Hyperplastic polyp from colonoscopy found. ASSESSMENT: 1. Moderate to severe chronic gastritis 2. Severe intractable nausea and vomiting 3. Generalized abdominal pain 4. Diarrhea. 5. Morbid obesity due to excess caloric intake. 6. Body mass index increased from 46.5-50.6 7. 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 PLAN: 1. For over 3 days, she has had intractable nausea vomiting including inadequate oral intake. Will need aggressive IV fluid hydration with normal saline 2. Protonix IV twice daily for severe gastritis 3. GI cocktail as needed 4. Send stool for C. diff for chronic diarrhea Past Medical History Past Medical History: Fibromyalgia, GERD/Reflux, Hypertension Additional Past Medical History / Comment(s): OCCASIONAL RESTLESS LEGS, MIGRAINES, STATES IRREGULAR HEART BEAT, LOW IRON - STATES IRON TRANSFUSIONS FEB 2019, STATES INCREASED ACID REFLUX AND HAVING FREQUENT LOOSE STOOLS. History of Any Multi-Drug Resistant Organisms: None Reported Past Surgical History: Adenoidectomy, Appendectomy, Bariatric Surgery, Cholecystectomy, Ear Surgery, Tonsillectomy Additional Past Surgical History / Comment(s): gastric sleeve-2010 in [place],MULT TUBES HENOK EARS, back injections Past Anesthesia/Blood Transfusion Reactions: No Reported Reaction Past Psychological History: Anxiety, Depression Smoking Status: Never smoker Past Alcohol Use History: None Reported Past Drug Use History: None Reported - Past Family History Mother Family Medical History: No Reported History Father Family Medical History: Hypertension Medications and Allergies Home Medications Medication Instructions Recorded Confirmed Type Loratadine [Claritin] 10 mg PO DAILY 03/16/16 02/26/19 History Ergocalciferol [Vitamin D2 50,000 unit PO MO 08/08/17 02/26/19 History (DRISDOL)] Nadolol [Corgard] 20 mg PO HS 08/08/17 02/26/19 History Omeprazole [PriLOSEC] 40 mg PO DAILY 08/08/17 02/26/19 History lamoTRIgine [LaMICtal] 75 mg PO BID 08/08/17 02/26/19 History Cyanocobalamin (Vitamin B-12) 1,000 mcg PO DAILY 10/15/17 02/26/19 History [Vitamin B-12] ALPRAZolam [Xanax] 1 mg PO HS 12/25/18 02/26/19 History Montelukast [Singulair] 10 mg PO HS 12/25/18 02/26/19 History ALPRAZolam [Xanax] 0.5 mg PO DAILY@0800,1300 02/18/19 02/26/19 History tiZANidine HCL [Zanaflex] 4 mg PO TID PRN 02/18/19 02/26/19 History Azithromycin [Zithromax Z-pack] See Taper PO DAILY 02/26/19 02/26/19 History Calcium Carbonate [Calcium] 600 mg PO DAILY 02/26/19 02/26/19 History Dicyclomine [Bentyl] 10 mg PO TID PRN 02/26/19 02/26/19 History Ferrous Sulfate [Feosol] 325 mg PO DAILY 02/26/19 02/26/19 History Allergies Allergy/AdvReac Type Severity Reaction Status Date / Time asenapine maleate Allergy Rash/Hives Verified 02/26/19 18:17 [From Saphris] cefaclor [From Ceclor] Allergy Rash/Hives Verified 02/26/19 18:17 Surgical - Exam Vital Signs Temp Pulse Resp BP Pulse Ox 98.2 F 80 18 144/95 100 02/26/19 15:34 02/26/19 15:34 02/26/19 15:34 02/26/19 15:34 02/26/19 15:34 Results - Labs 02/26/19 16:28 02/26/19 16:28 Diabetes panel 02/26/19 Range/Units 16:28 Sodium 141 (137-145) mmol/L Potassium 4.3 (3.5-5.1) mmol/L Chloride 105 (98-107) mmol/L Carbon Dioxide 25 (22-30) mmol/L BUN 7 (7-17) mg/dL Creatinine 0.66 (0.52-1.04) mg/dL Glucose 88 (74-99) mg/dL Calcium 9.7 (8.4-10.2) mg/dL AST 29 (14-36) U/L ALT 25 (9-52) U/L Alkaline Phosphatase 100 (38-126) U/L Total Protein 7.1 (6.3-8.2) g/dL Albumin 4.3 (3.5-5.0) g/dL Calcium panel 02/26/19 Range/Units 16:28 Calcium 9.7 (8.4-10.2) mg/dL Albumin 4.3 (3.5-5.0) g/dL Pituitary panel 02/26/19 Range/Units 16:28 Sodium 141 (137-145) mmol/L Potassium 4.3 (3.5-5.1) mmol/L Chloride 105 (98-107) mmol/L Carbon Dioxide 25 (22-30) mmol/L BUN 7 (7-17) mg/dL Creatinine 0.66 (0.52-1.04) mg/dL Glucose 88 (74-99) mg/dL Calcium 9.7 (8.4-10.2) mg/dL Adrenal panel 02/26/19 Range/Units 16:28 Sodium 141 (137-145) mmol/L Potassium 4.3 (3.5-5.1) mmol/L Chloride 105 (98-107) mmol/L Carbon Dioxide 25 (22-30) mmol/L BUN 7 (7-17) mg/dL Creatinine 0.66 (0.52-1.04) mg/dL Glucose 88 (74-99) mg/dL Calcium 9.7 (8.4-10.2) mg/dL Total Bilirubin 0.5 (0.2-1.3) mg/dL AST 29 (14-36) U/L ALT 25 (9-52) U/L Alkaline Phosphatase 100 (38-126) U/L Total Protein 7.1 (6.3-8.2) g/dL Albumin 4.3 (3.5-5.0) g/dL Assessment and Plan (1) Diarrhea Current Visit: Yes Status: Acute Code(s): R19.7 - DIARRHEA, UNSPECIFIED SNOMED Code(s): 76068659 (2) History of sleeve gastrectomy Current Visit: Yes Status: Acute Code(s): Z90.3 - ACQUIRED ABSENCE OF STOMACH [PART OF] SNOMED Code(s): 301146327348801 (3) Morbid obesity with BMI of 50.0-59.9, adult Current Visit: Yes Status: Acute Code(s): E66.01 - MORBID (SEVERE) OBESITY DUE TO EXCESS CALORIES; Z68.43 - BODY MASS INDEX (BMI) 50.0-59.9, ADULT SNOMED Code(s): 435637551 (4) Dehydration Current Visit: Yes Status: Acute Code(s): E86.0 - DEHYDRATION SNOMED Code(s): 84426869 (5) Gastritis Current Visit: Yes Status: Acute Code(s): K29.70 - GASTRITIS, UNSPECIFIED, WITHOUT BLEEDING SNOMED Code(s): 5442347 (6) Intractable nausea and vomiting Current Visit: Yes Status: Acute Code(s): R11.2 - NAUSEA WITH VOMITING, U NSPECIFIED SNOMED Code(s): 613290856 (7) Generalized abdominal pain Current Visit: Yes Status: Acute Code(s): R10.84 - GENERALIZED ABDOMINAL PAIN SNOMED Code(s): 896850320 (8) Depressive disorder Current Visit: Yes Status: Acute Code(s): F32.9 - MAJOR DEPRESSIVE DISORDER, SINGLE EPISODE, UNSPECIFIED SNOMED Code(s): 22098275 (9) Hypertensive heart disease Current Visit: Yes Status: Acute Code(s): I11.9 - HYPERTENSIVE HEART DISEASE WITHOUT HEART FAILURE SNOMED Code(s): 69331568
[2019-02-26] MEDS ORDERED: MAG HYDROX/AL HYDROX/SIMETH 30 ML, HYOSCYAMINE ELIXIR 10 ML, LIDOCAINE VISCOUS 2% 10 ML PO ONE ×3 (19:30)
[2019-02-26] MEDS ORDERED: SCOPOLAMINE 1.5MG/72HR PATCH TRANSDERM SCH (20:00)
[2019-02-26] MEDS ORDERED: ALPRAZolam 1 MG TAB PO SCH (21:00)
[2019-02-26] MEDS ORDERED: NADOLOL 20 MG TAB PO SCH (21:00)
[2019-02-26] MEDS ORDERED: MONTELUKAST 10 MG TAB PO SCH (21:00)
[2019-02-26 21:12] VITALS: BMI 57.1
[2019-02-26] MEDS: METOCLOPRAMIDE 5 MG/ML 2 ML VIAL IVP SCH (23:20)
[2019-02-27] MEDS ORDERED: KETOROLAC 30 MG/ML 1 ML VIAL IVP PRN
[2019-02-27] MEDS: METOCLOPRAMIDE 5 MG/ML 2 ML VIAL IVP SCH (04:59)
[2019-02-27] MEDS: SODIUM CHLORIDE 0.9% 1,000 ML IV SCH (05:17)
[2019-02-27] MEDS ORDERED: SUCRALFATE 1 GM TAB PO SCH (07:30)
[2019-02-27] MEDS ORDERED: ALPRAZolam 0.5 MG TAB PO SCH (08:00)
[2019-02-27 08:35] VITALS: BP 123/78; PULSE 81; RESP 17; TEMP 97.4
[2019-02-27] MEDS ORDERED: PANTOPRAZOLE 40 MG/10 ML VIAL IV SCH (09:00)
[2019-02-27] MEDS ORDERED: SODIUM CHLORIDE 0.9% 1,000 ML IV ONE (09:03)
[2019-02-27] MEDS ORDERED: MAG HYDROX/AL HYDROX/SIMETH 30 ML, HYOSCYAMINE ELIXIR 10 ML, LIDOCAINE VISCOUS 2% 10 ML PO ONE ×3 (09:04)
--- NOTE | 2019-02-27 11:36 | P.DS ---
Providers Date of admission: 02/26/19 17:50 Expected date of discharge: 02/27/19 Attending physician: Elis Shi Primary care physician: Gifty Whitfield [facility] Course: Soni Mtz is a 23-year-old female who presents acutely with intractable nausea and vomiting, inadequate oral intake, severe dehydration including low urine output. She recent colonoscopy 3 days ago as well as upper endoscopy for evaluation for chronic diarrhea including epigastric abdominal pain. Pathology from her upper endoscopy demonstrates severe chronic gastritis. Hyperplastic polyp from colonoscopy found. Since her procedure, her mother and the patient reports not able to tolerate anything by mouth. She presented to the emergency room severe dehydration including intractable nausea vomiting hence her presentation. She has history of sleeve gastrectomy done in 2010 at the age of [age] years old. She had weighed 297 pounds. Body mass index was 46.5. Today she comes in weighing 322 pounds from 244 pounds, 3 years ago with a 70 pound weight gain. She reports being started on multiple antidepressants and as a result has moderate appetite and weight gain. Patient was given aggressive IV fluid hydration. Her nausea has improved and she has had no further episodes of vomiting. She is tolerating clear liquid diet. The patient was previously taking omeprazole. She was started on carafate twice a day. Both of these medications are to be continued at discharge. The patient was seen and examined by Dr. Shi and deemed stable for discharge home today. Please see EMR for further hospital course details. Discharge Diagnosis 1. Moderate to severe chronic gastritis 2. Severe intractable nausea and vomiting 3. Generalized abdominal pain 4. Diarrhea. 5. Morbid obesity due to excess caloric intake. 6. Body mass index increased from 46.5-50.6 7. 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 Nurse practitioner note has been reviewed by physician. Signing provider agrees with the documented findings, assessment, and plan of care. Patient Condition at Discharge: Stable Plan - Discharge Summary Discharge Rx Participant: Yes New Discharge Prescriptions: New Sucralfate [Carafate] 1 gm PO BID #60 tablet No Action Loratadine [Claritin] 10 mg PO DAILY Nadolol [Corgard] 20 mg PO HS Omeprazole [PriLOSEC] 40 mg PO DAILY lamoTRIgine [LaMICtal] 75 mg PO BID Ergocalciferol [Vitamin D2 (DRISDOL)] 50,000 unit PO MO Cyanocobalamin (Vitamin B-12) [Vitamin B-12] 1,000 mcg PO DAILY Montelukast [Singulair] 10 mg PO HS ALPRAZolam [Xanax] 1 mg PO HS ALPRAZolam [Xanax] 0.5 mg PO DAILY@0800,1300 tiZANidine HCL [Zanaflex] 4 mg PO TID PRN PRN Reason: Muscle Spasm Calcium Carbonate [Calcium] 600 mg PO DAILY Ferrous Sulfate [Feosol] 325 mg PO DAILY Dicyclomine [Bentyl] 10 mg PO TID PRN PRN Reason: Gi Upset Azithromycin [Zithromax Z-pack] See Taper PO DAILY Discharge Medication List Loratadine [Claritin] 10 mg PO DAILY 03/16/16 [History] Ergocalciferol [Vitamin D2 (DRISDOL)] 50,000 unit PO MO 08/08/17 [History] Nadolol [Corgard] 20 mg PO HS 08/08/17 [History] Omeprazole [PriLOSEC] 40 mg PO DAILY 08/08/17 [History] lamoTRIgine [LaMICtal] 75 mg PO BID 08/08/17 [History] Cyanocobalamin (Vitamin B-12) [Vitamin B-12] 1,000 mcg PO DAILY 10/15/17 [History] ALPRAZolam [Xanax] 1 mg PO HS 12/25/18 [History] Montelukast [Singulair] 10 mg PO HS 12/25/18 [History] ALPRAZolam [Xanax] 0.5 mg PO DAILY@0800,1300 02/18/19 [History] tiZANidine HCL [Zanaflex] 4 mg PO TID PRN 02/18/19 [History] Azithromycin [Zithromax Z-pack] See Taper PO DAILY 02/26/19 [History] Calcium Carbonate [Calcium] 600 mg PO DAILY 02/26/19 [History] Dicyclomine [Bentyl] 10 mg PO TID PRN 02/26/19 [History] Ferrous Sulfate [Feosol] 325 mg PO DAILY 02/26/19 [History] Sucralfate [Carafate] 1 gm PO BID #60 tablet 02/27/19 [Rx] Follow up Appointment(s)/Referral(s): Nahid Durbin MD [Primary Care Provider] [facility] [place] [place] - 1 Week
[2019-02-27] MEDS ORDERED: METOCLOPRAMIDE 10 MG TAB PO STA (11:40)
== END 2019-02-27 12:01 | disposition home or self-care (01) ==
LOC: EC 15:21 → 3NMEDONC 17:50
PROVIDERS: ADMIT Surgery Plastic and Reconstructive Surgery; ATTEND Surgery Plastic and Reconstructive Surgery
DX: K29.50 Unspecified chronic gastritis without bleeding (principal); R10.84 Generalized abdominal pain; E86.0 Dehydration; E66.01 Morbid (severe) obesity due to excess calories; F32.9 Major depressive disorder, single episode, unspecified; F41.9 Anxiety disorder, unspecified; G25.81 Restless legs syndrome; I11.9 Hypertensive heart disease without heart failure; K22.10 Ulcer of esophagus without bleeding; K58.0 Irritable bowel syndrome with diarrhea; M17.0 Bilateral primary osteoarthritis of knee; M79.7 Fibromyalgia; Z68.43 Body mass index [BMI] 50.0-59.9, adult; Z82.49 Family history of ischemic heart disease and other diseases of the circulatory system; Z90.49 Acquired absence of other specified parts of digestive tract; Z98.84 Bariatric surgery status; Z79.899 Other long term (current) drug therapy; Z79.51 Long term (current) use of inhaled steroids; Z88.1 Allergy status to other antibiotic agents; Z88.8 Allergy status to other drugs, medicaments and biological substances; Z79.1 Long term (current) use of non-steroidal anti-inflammatories (NSAID); Z79.891 Long term (current) use of opiate analgesic
CPT/HCPCS: 96376 ×2; 96361 ×3; 96374; 96375; 99285; 36415; 93005; 80053; 82150; 83690; 84484; 85025; 85610; 85730; 81003; 74018; G0378 ×2; J2765 ×2; J2405; J1885 ×2; C9113 ×2

== ENCOUNTER → 2019-03-02 | Outpatient (CLI) | payer OTHER ==
--- NOTE | 2019-03-02 15:48 | US ---
EXAMINATION TYPE: US pelvis complete transvag DATE OF EXAM: 03/02/2019 COMPARISON: NONE CLINICAL HISTORY: N91.2 AMENORRHEA. was on depo since 2015, just started new control that niles [place] have restarted cycles in February, but nothing yet, G0 TECHNIQUE: TA/TV. Transabdominal sonographic images of the pelvis were acquired. Transvaginal sono graphic images were done due to bladder not being full and patients inability to wait for it to fill. Date of LMP: 2015 EXAM MEASUREMENTS: Uterus: 6.0 x 2.6 x 2.4 cm Endometrial Stripe: 0.4 cm Right Ovary: 3.3 x 2.0 x 2.1 cm Left Ovary: not seen 1. Uterus: Anteverted wnl 2. Endometrium: fluid seen within canal toward lower uterine segment 3. Right Ovary: wnl 4. Left Ovary: not seen due to bowel gas 5. Bilateral Adnexa: wnl 6. Posterior cul-de-sac: wnl IMPRESSION: 1. Endometrial canal appears normal. Small amount fluid is within the endometrial canal in the lower uterine segment.
== END | disposition home or self-care (01) ==
LOC: RADUSWWP 14:05
PROVIDERS: ATTEND Obstetrics & Gynecology
DX: N91.2 Amenorrhea, unspecified (principal)
CPT/HCPCS: 76830; 76856

== ENCOUNTER → 2019-03-04 | Outpatient (CLI) | payer OTHER ==
[2019-03-04 14:38] VITALS: BP 131/78; PULSE 82; TEMP 98.5; BMI 51.8
--- NOTE | 2019-03-04 14:52 | P.PN ---
Subjective Progress Note Date: 03/04/19 DATE OF SERVICE: 03/04/2019 CHIEF COMPLAINT: Morbid obesity HISTORY OF PRESENT ILLNESS: Soni Mtz is a 23-year-old female who had a prior history of sleeve gastrectomy done in 2011 at the age of [age] years old. She is 7 years out. She comes in with inner ear infection. She reports dizziness. She was dehydrated. She is on carafate for severe abdominal pain. She has improved abdominal pain since hospitalization 1 week ago. She is eating solid foods. She reports chronic diarrhea. At height of 5 foot 7 inches, ideal body weight is 158 pounds. Today she comes in 330 pounds from 325 pounds, 1 month ago. She has gained 5 pounds in 1 month. She now presents at her highest lifetime weight of 330 pounds with BMI 51.8. She is 172 pounds overweight. PHYSICAL EXAM: VITAL SIGNS: 5 feet 7 inches; 330 pounds. BMI 51.8 Vital Signs Temp 98.5 F 03/04/19 14:34 Pulse 82 03/04/19 14:34 Resp BP 131/78 03/04/19 14:34 Pulse Ox GENERAL: Well-developed female no acute distress. ABDOMEN: Soft. No peritonitis. MUSCULOSKELETAL: No clubbing, cyanosis. CARDIOVASCULAR: Regular rate. HEENT: No sclerae icterus. Extraocular movements grossly intact. Moist buccal mucosa. NECK: Supple without lymphadenopathy. CHEST: Unlabored respirations. Equal breath. NEURO: No focal or lateralizing signs. Cranial nerves II to XII intact. PSYCH: Appropriate affect. Alert and oriented to person, place and time. SKIN: Good skin turgor. Well perfused. ASSESSMENT: 1. Morbid obesity due to excess caloric intake 2. Body mass index 51.8 3. Gastroesophageal reflux disease. 4. Irritable bowel syndrome. 5. Status post sleeve gastrectomy. 6. 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 7. Dietary surveillance and counseling. 8. Vitamin D deficiency. 9. Secondary hyperparathyroidism. 10. Sleep disorder. 11. Status post weight gain following sleeve gastrectomy. 12. Adverse reactions from her medications with weight gain. 13. Iron deficiency anemia. 14. Diarrhea. PLAN: 1. Recommend stop carafate, omeprazole, and calcium. 2. Start probiotic for chronic diarrhea 3. May need revision of sleeve to bypass for severe reflux. Objective - Vital Signs Vital signs: Vital Signs Temp 98.5 F 03/04/19 14:34 Pulse 82 03/04/19 14:34 Resp BP 131/78 03/04/19 14:34 Pulse Ox Intake & Output 03/03/19 03/04/19 03/04/19 18:59 06:59 18:59 Weight 150.139 kg - Labs CBC & Chem 7: 03/04/19 15:25 03/04/19 15:25
[2019-03-04 16:00] LABS: HCT 43.8 % (34.0-46.0); HGB 14.1 gm/dL (11.4-16.0); MCH 27.7 pg (25.0-35.0); MCHC 32.2 g/dL (31.0-37.0); MCV 86.2 fL (80.0-100.0); Platelet Count 339 k/uL (150-450); RBC 5.09 m/uL (3.80-5.40); RDW 15.3 % (11.5-15.5)
[2019-03-04 16:05] LABS: INR 0.9 (<1.2); Partial Thromboplastin Time 25.1 sec (22.0-30.0); Prothrombin Time 9.8 sec (9.0-12.0)
[2019-03-05 01:16] LABS: Ferritin 214.1 ng/mL (10.0-291.0); Folate, Serum 8.2 ng/mL
[2019-03-05 01:20] LABS: % Iron Saturation 29.54 (12.00-45.00); African American GFR (CKD) 91.3 (60.0-200.0); Albumin 4.6 g/dL (3.80-4.90); Albumin/Globulin Ratio 2.71 (1.60-3.17); Calcium 9.4 mg/dL (8.7-10.3); Chol/HDL Ratio 2.58; Globulin 1.7 g/dL (1.6-3.3); LDL Cholesterol,Calculated 45.6 mg/dL (0.0-131.0); Magnesium 1.9 mg/dL (1.5-2.4); Non-African American GFR(CKD) 78.8 (60.0-200.0); Phosphorus 4.5 mg/dL (2.4-5.1); Potassium 4.2 mmol/L (3.5-5.5); Total Bilirubin 0.2 mg/dL (0.3-1.2); Total Protein 6.3 g/dL (6.2-8.2); VLDL Calculation 38.4 mg/dL (5.00-40.00)
[2019-03-05 01:55] LABS: Hemoglobin A1C 4.8 % (4.0-6.0)
[2019-03-06 12:52] LABS: Vit B1(Thiamine) 63 ug/L (38-122)
[2019-03-06 13:11] LABS: Zinc, Serum 42 ug/dL (60-130)
[2019-03-07 09:25] LABS: Vitamin A 46 ug/dL (38-106)
[2019-03-09 17:42] LABS: Selenium 151 mcg/L (63-160)
== END | disposition home or self-care (01) ==
LOC: BARWHC3 13:35
PROVIDERS: ATTEND Surgery Plastic and Reconstructive Surgery
DX: E66.01 Morbid (severe) obesity due to excess calories (principal); Z68.43 Body mass index [BMI] 50.0-59.9, adult; K21.9 Gastro-esophageal reflux disease without esophagitis; K58.0 Irritable bowel syndrome with diarrhea; Z71.3 Dietary counseling and surveillance; E55.9 Vitamin D deficiency, unspecified; G47.9 Sleep disorder, unspecified; D50.9 Iron deficiency anemia, unspecified; K95.89 Other complications of other bariatric procedure; K22.10 Ulcer of esophagus without bleeding; Z98.84 Bariatric surgery status; E21.1 Secondary hyperparathyroidism, not elsewhere classified; E89.1 Postprocedural hypoinsulinemia; K90.9 Intestinal malabsorption, unspecified; K74.1 Hepatic sclerosis; N19 Unspecified kidney failure
CPT/HCPCS: 84255; 84134; 84425; 80061; 80053; 82607; 82728; 82525; 82746; 83540; 83550; 83735; 84100; 84443; 84590; 84630; 85027; 85610; 85730; 82306; 83970; 83036; G0463; 99211

== ENCOUNTER → 2019-03-11 | Outpatient (CLI) | payer OTHER ==
[~2019-03-11] MED LIST changes: -LACTATED RINGERS 1,000 ML IV SCH; -LIDOCAINE 1% 20 ML VIAL (10MG/ML) FOR IV START INTRADERMA PRN; +SODIUM CHLORIDE 0.9% 500 ML 500 ML in EMPTY BAG 1 BAG IV PRN
[2019-03-11 10:42] VITALS: BP 132/84; PULSE 90; RESP 16; TEMP 98
[2019-03-11] MEDS: SODIUM CHLORIDE 0.9% 1,000 ML IV NR ×2 (10:42→11:44)
== END ==
LOC: PROCWHC3 10:23
PROVIDERS: ATTEND Surgery Plastic and Reconstructive Surgery
DX: E86.0 Dehydration (principal)
CPT/HCPCS: 96360; 96361

== ENCOUNTER → 2019-03-25 | Outpatient (CLI) | payer OTHER ==
[2019-03-25 15:30] VITALS: BP 124/66; PULSE 77; RESP 16; TEMP 98.7; BMI 51.3
--- NOTE | 2019-03-25 15:44 | P.PN ---
Subjective Progress Note Date: 03/25/19 DATE OF SERVICE: 03/25/2019 CHIEF COMPLAINT: Morbid obesity HISTORY OF PRESENT ILLNESS: Soni Mtz is a 23-year-old female status post sleeve gastrectomy 2011 at the age of [age] years old. She is 7 years out. She reports being uncomfortable. She has chronic diarrhea. She is on multiple medications for her mood with untoward side effects. She required IV fluids for dehydration. At height of 5 foot 7 inches, ideal body weight is 158 pounds. Today she comes in 327 pounds from 330 pounds, 3 weeks ago. She has lost 3 pounds in 3 weeks. Highest lifetime weight of 330 pounds, BMI 51.8. PHYSICAL EXAM: VITAL SIGNS: 5 feet 7 inches; 327 pounds. BMI 51.4 Vital Signs Temp 98.7 F 03/25/19 15:28 Pulse 77 03/25/19 15:28 Resp 16 03/25/19 15:28 BP 124/66 03/25/19 15:28 Pulse Ox GENERAL: Well-developed female no acute distress. ABDOMEN: Soft. No peritonitis. MUSCULOSKELETAL: No clubbing, cyanosis. CARDIOVASCULAR: Regular rate. HEENT: No sclerae icterus. Extraocular movements grossly intact. Moist buccal mucosa. NECK: Supple without lymphadenopathy. CHEST: Unlabored respirations. Equal breath. NEURO: No focal or lateralizing signs. Cranial nerves II to XII intact. PSYCH: Appropriate affect. Alert and oriented to person, place and time. SKIN: Good skin turgor. Well perfused. LABS: Zinc is low ASSESSMENT: 1. Morbid obesity due to excess caloric intake 2. Body mass index 51.8 to 51.4 3. Gastroesophageal reflux disease. 4. Irritable bowel syndrome. 5. Status post sleeve gastrectomy. 6. 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 7. Dietary surveillance and counseling. 8. Vitamin D deficiency. 9. Secondary hyperparathyroidism. 10. Sleep disorder. 11. Status post weight gain following sleeve gastrectomy. 12. Adverse reactions from her medications with weight gain. 13. Iron deficiency anemia. 14. Diarrhea. 15. Zinc deficieny PLAN: 1. Recommend Zinc 50 mg daily for zinc deficiency 2. Overall with her weight re-gain and compilcations from her sleeve gastrectomy with gastreosophageal reflux disease, recommend conversion to gastric bypass. Objective - Vital Signs Vital signs: Vital Signs Temp 98.7 F 03/25/19 15:28 Pulse 77 03/25/19 15:28 Resp 16 03/25/19 15:28 BP 124/66 03/25/19 15:28 Pulse Ox Intake & Output 03/24/19 03/25/19 03/25/19 18:59 06:59 18:59 Weight 148.778 kg
== END | disposition home or self-care (01) ==
LOC: BARWHC3 15:27
PROVIDERS: ATTEND Surgery Plastic and Reconstructive Surgery
DX: Z48.815 Encounter for surgical aftercare following surgery on the digestive system (principal); E66.01 Morbid (severe) obesity due to excess calories; Z68.43 Body mass index [BMI] 50.0-59.9, adult; K21.9 Gastro-esophageal reflux disease without esophagitis; K58.9 Irritable bowel syndrome, unspecified; K22.10 Ulcer of esophagus without bleeding; Z71.3 Dietary counseling and surveillance; E55.9 Vitamin D deficiency, unspecified; N25.81 Secondary hyperparathyroidism of renal origin; G47.9 Sleep disorder, unspecified; D50.9 Iron deficiency anemia, unspecified; R19.7 Diarrhea, unspecified; E60 Dietary zinc deficiency; T50.905A Adverse effect of unspecified drugs, medicaments and biological substances, initial encounter
CPT/HCPCS: 99211

== ENCOUNTER → 2019-06-10 | Outpatient (CLI) | payer OTHER ==
[2019-06-10 16:32] VITALS: BP 128/75; PULSE 94; RESP 16; TEMP 97.7; BMI 50.5
--- NOTE | 2019-06-10 16:57 | P.PN ---
Subjective Progress Note Date: 06/10/19 DATE OF SERVICE: 06/10/2019 CHIEF COMPLAINT: Status post sleeve gastrectomy HISTORY OF PRESENT ILLNESS: Soni Mtz is a 23-year-old female status post sleeve gastrectomy 2011 at the age of [age] years old. She is 8 years out. 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 She reports chronic gastroesophageal reflux disease despite medications. She has gained moderate weight, over 60+ pounds in 2 years. She just started keto diet and lost 5 pounds in 1 week. She reports past history of cholecystectomy. She has chronic diarrhea especially after eating. Secondary to her chronic reflux disease with her sleeve gastrectomy, she is looking into conversion to gastric bypass. At height of 5 foot 7 inches, ideal body weight is 158 pounds. Today she comes in 322 pounds from 327 pounds, 3 months ago. She has lost 5 pounds in 3 months. Highest lifetime weight of 330 pounds, BMI 51.8. Lifetime weight loss of 8 pounds. Percent excess weight loss of 4% lifetime. PAST MEDICAL HISTORY: 1. Morbid obesity due to excess calories, now 51.1 2. 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 3. Fibromyalgia. 4. Osteoarthritis of the bilateral knees. 5. Depression. 6. Hypertensive heart disease 7. Vitamin D deficiency 8. Anxiety disorder 9. Asthma 10. Irritable bowel syndrome 11. Iron deficiency anemia PAST SURGICAL HISTORY: 1. Sleeve gastrectomy, 2011 2. Cholecystectomy. 3. Upper endoscopy. MEDICATIONS: Home Medications Medication Instructions Recorded Confirmed Loratadine [Claritin] 10 mg PO DAILY 03/16/16 02/26/19 Ergocalciferol [Vitamin D2 50,000 unit PO MO 08/08/17 02/26/19 (DRISDOL)] Nadolol [Corgard] 20 mg PO HS 08/08/17 02/26/19 Omeprazole [PriLOSEC] 40 mg PO DAILY 08/08/17 02/26/19 lamoTRIgine [LaMICtal] 75 mg PO BID 08/08/17 02/26/19 Cyanocobalamin (Vitamin B-12) 1,000 mcg PO DAILY 10/15/17 02/26/19 [Vitamin B-12] ALPRAZolam [Xanax] 1 mg PO HS 12/25/18 02/26/19 Montelukast [Singulair] 10 mg PO HS 12/25/18 02/26/19 ALPRAZolam [Xanax] 0.5 mg PO DAILY@0800,1300 02/18/19 02/26/19 tiZANidine HCL [Zanaflex] 4 mg PO TID PRN 02/18/19 02/26/19 Azithromycin [Zithromax Z-pack] See Taper PO DAILY 02/26/19 02/26/19 Calcium Carbonate [Calcium] 600 mg PO DAILY 02/26/19 02/26/19 Dicyclomine [Bentyl] 10 mg PO TID PRN 02/26/19 02/26/19 Ferrous Sulfate [Feosol] 325 mg PO DAILY 02/26/19 02/26/19 Previous Rx's Medication Instructions Recorded Sucralfate [Carafate] 1 gm PO BID #60 tablet 02/27/19 ALLERGIES: SAPHRIS, CECLOR. Allergies Allergy/AdvReac Type Severity Reaction Status Date / Time asenapine maleate Allergy Rash/Hives Verified 02/26/19 18:17 [From Saphris] cefaclor [From Ceclor] Allergy Rash/Hives Verified 02/26/19 18:17 SOCIAL HISTORY: No active tobacco use. FAMILY HISTORY: Pertinent for morbid obesity. REVIEW OF SYSTEMS: CONSTITUTIONAL: At height of 5 foot 7 inches, ideal body weight is 158 pounds. Her highest lifetime weight of 330 pounds with BMI 51.8. PSYCH: She has multiple changes in anti-depressive medications. Has anxiety. GENITOURINARY: Takes control pill. RESPIRATORY: Has trouble sleeping. Has obstructive sleep apnea. GASTROINTESTINAL: Has irritable bowel disease. History of gastroesophageal reflux disease. MUSCULOSKELETAL: History of lower back pain. Has reports bilateral hip and knee pain. NEUROLOGICAL: History of fibromyalgia. No seizure disorder. CARDIOVASCULAR: History of hypertension. Past chest pain. HEENT: Denies any trouble with vision, hearing or nosebleeds. No difficulty swallowing. LYMPHATIC: The patient denies any lumps and bumps around the neck. ENDOCRINE: Denies any thyroid disorders. Denies any blood sugar glucose intolerance. HEMATOLOGIC: Denies any abnormal bleeding or bruising. PHYSICAL EXAM: VITAL SIGNS: 5 feet 7 inches; 322 pounds. BMI 50.6 Vital Signs Temp 97.7 F 06/10/19 16:30 Pulse 94 06/10/19 16:30 Resp 16 06/10/19 16:30 BP 128/75 06/10/19 16:30 Pulse Ox GENERAL: Well-developed female no acute distress. ABDOMEN: Soft. No peritonitis. No incisional hernias. MUSCULOSKELETAL: No clubbing, cyanosis. CARDIOVASCULAR: Regular rate. 2+ radial pulses HEENT: No sclerae icterus. Extraocular movements grossly intact. Moist buccal mucosa. NECK: Supple without lymphadenopathy. CHEST: Unlabored respirations. Equal breath. NEURO: No focal or lateralizing signs. Cranial nerves II to XII intact. PSYCH: Appropriate affect. Alert and oriented to person, place and time. SKIN: Good skin turgor. Well perfused. ASSESSMENT: 1. Morbid obesity due to excess caloric intake 2. Body mass index 51.8 to 50.6 3. Gastroesophageal reflux disease. 4. Irritable bowel syndrome. 5. Status post sleeve gastrectomy. 6. 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 7. Dietary surveillance and counseling. 8. Vitamin D deficiency. 9. Secondary hyperparathyroidism. 10. Sleep disorder. 11. Status post weight gain following sleeve gastrectomy. 12. Adverse reactions from her medications with weight gain. 13. Iron deficiency anemia. 14. Diarrhea. 15. Zinc deficieny 16. Chronic diarrhea PLAN: 1. Her chronic diarrhea is suspicious for post-cholecystectomy syndrome. She is prescribed trial of cholestyramine. 2. For her gastroesophageal reflux, recommend esophagram for esophageal dysmotility and intra-esophageal reflux. 3. She is also evaluating for possibility of conversion to gastric bypass however, will need further investigation of her diarrhea to exclude dumping syndrome. 4. Recommend correction of her causes for gastroesophageal reflux disease including repair of any underlying hiatal hernia Objective - Vital Signs Vital signs: Vital Signs Temp 97.7 F 06/10/19 16:30 Pulse 94 06/10/19 16:30 Resp 16 06/10/19 16:30 BP 128/75 06/10/19 16:30 Pulse Ox Intake & Output 06/09/19 06/10/19 06/10/19 18:59 06:59 18:59 Weight 146.51 kg
== END | disposition home or self-care (01) ==
LOC: BARWHC3 16:12
PROVIDERS: ATTEND Surgery Plastic and Reconstructive Surgery
DX: E66.01 Morbid (severe) obesity due to excess calories (principal); Z68.43 Body mass index [BMI] 50.0-59.9, adult; M47.816 Spondylosis without myelopathy or radiculopathy, lumbar region; F32.9 Major depressive disorder, single episode, unspecified; I11.9 Hypertensive heart disease without heart failure; E55.9 Vitamin D deficiency, unspecified; F41.9 Anxiety disorder, unspecified; J45.909 Unspecified asthma, uncomplicated; D50.9 Iron deficiency anemia, unspecified; Z98.84 Bariatric surgery status; Z90.49 Acquired absence of other specified parts of digestive tract; G47.33 Obstructive sleep apnea (adult) (pediatric); K21.9 Gastro-esophageal reflux disease without esophagitis; M79.7 Fibromyalgia; K58.0 Irritable bowel syndrome with diarrhea; K22.10 Ulcer of esophagus without bleeding; N25.81 Secondary hyperparathyroidism of renal origin; T50.905A Adverse effect of unspecified drugs, medicaments and biological substances, initial encounter; E60 Dietary zinc deficiency; M17.0 Bilateral primary osteoarthritis of knee; Z79.899 Other long term (current) drug therapy; Z79.3 Long term (current) use of hormonal contraceptives; Z88.1 Allergy status to other antibiotic agents; Z88.8 Allergy status to other drugs, medicaments and biological substances
CPT/HCPCS: 99211

== ENCOUNTER → 2019-08-27 | Outpatient (CLI) | payer OTHER ==
--- NOTE | 2019-08-27 12:21 | FL ---
EXAMINATION TYPE: FL barium swallow DATE OF EXAM: 08/27/2019 COMPARISON: None HISTORY: Gastric sleeve, reflux TECHNIQUE: A single contrast UGI study is performed. FINDINGS: Contrast passes through the esophagus through the gastric sleeve with no significant hesita ncy. Esophagus dilates to normal caliber has normal contour to the gastroesophageal junction. No intr aluminal or extramural defect is evident. Minimal reflux was elicited during the exam. There is incomplete stripping the esophageal bolus the horizontal drinking position. Secondary a few tertiary contractions were evident. Fluoroscopy time: 1 minute 5 seconds. Images: 18 IMPRESSIONS: 1. Presbyesophagus with incomplete stripping the esophageal bolus in the horizontal drinking position . 2. Some minimal gastroesophageal reflux was evident during the exam.
== END | disposition home or self-care (01) ==
LOC: RADUSWWP 10:43
PROVIDERS: ATTEND Surgery Plastic and Reconstructive Surgery
DX: R13.10 Dysphagia, unspecified (principal); K21.9 Gastro-esophageal reflux disease without esophagitis; K22.8 Other specified diseases of esophagus
CPT/HCPCS: 74220

== ENCOUNTER → 2019-10-20 | Outpatient (CLI) | payer OTHER ==
[2019-10-20 13:34] LABS: HCT 41.8 % (34.0-46.0); HGB 13.3 gm/dL (11.4-16.0); MCH 28.1 pg (25.0-35.0); MCHC 31.7 g/dL (31.0-37.0); MCV 88.5 fL (80.0-100.0); Mean Platelet Volume 7.3; Platelet Count 412 k/uL (150-450); RBC 4.72 m/uL (3.80-5.40); RDW 12.1 % (11.5-15.5); WBC 8.9 k/uL (3.8-10.6)
[2019-10-20 18:40] LABS: % Iron Saturation 44.33 (12.00-45.00); African American GFR (CKD) 103.7 (60.0-200.0); Albumin 4.4 g/dL (3.80-4.90); Albumin/Globulin Ratio 2.44 (1.60-3.17); Anion Gap 8.1 mmol/L (4.00-12.00); BUN/Creat Ratio 15.56 Ratio (12.00-20.00); Calcium 9.3 mg/dL (8.7-10.3); Carbon Dioxide 25.9 mmol/L (21.6-31.8); Chol/HDL Ratio 3.09; Globulin 1.8 g/dL (1.6-3.3); Non-African American GFR(CKD) 89.5 (60.0-200.0); Phosphorus 3.9 mg/dL (2.4-5.1); Potassium 4.3 mmol/L (3.5-5.5); Total Bilirubin 0.6 mg/dL (0.3-1.2); Total Protein 6.2 g/dL (6.2-8.2)
[2019-10-20 18:41] LABS: Magnesium 2.1 mg/dL (1.5-2.4)
[2019-10-20 18:54] LABS: Ferritin 96.3 ng/mL (10.0-291.0); Folate, Serum 9.4 ng/mL
[2019-10-21 00:50] LABS: INR 0.98 (0.90-1.11); Partial Thromboplastin Time 28.7 sec (24.7-29.9); Prothrombin Time 10.5 sec (9.9-11.9)
[2019-10-21 14:30] LABS: Zinc, Serum 90 ug/dL (60-130)
[2019-10-21 14:35] LABS: Vitamin A 58 ug/dL (38-106)
[2019-10-22 07:23] LABS: Vit B1(Thiamine) 68 ug/L (38-122)
== END | disposition home or self-care (01) ==
LOC: LABWHC1 11:34
PROVIDERS: ATTEND Surgery Plastic and Reconstructive Surgery
DX: E21.1 Secondary hyperparathyroidism, not elsewhere classified (principal); E89.1 Postprocedural hypoinsulinemia; D50.9 Iron deficiency anemia, unspecified; K90.9 Intestinal malabsorption, unspecified; E55.9 Vitamin D deficiency, unspecified; K74.1 Hepatic sclerosis; N19 Unspecified kidney failure; K50.90 Crohn's disease, unspecified, without complications; E66.01 Morbid (severe) obesity due to excess calories
CPT/HCPCS: 36415; 80053; 80061; 82306; 82525; 82607; 82728; 82746; 83036; 83540; 83550; 83735; 83970; 84100; 84134; 84255; 84425; 84443; 84590; 84630; 85027; 85610; 85730

== ENCOUNTER 2020-01-30 12:21 | Emergency (ER) | payer OTHER ==
[2020-01-30 12:24] VITALS: BP 136/86; PULSE 83; RESP 18; TEMP 98
[2020-01-30] MEDS ORDERED: HYDROcodone/APAP 5-325MG 1 EACH TAB PO STA (12:39)
--- NOTE | 2020-01-30 12:50 | ED ---
Lower Extremity Injury HPI - General Chief Complaint: Extremity Injury, Lower Stated Complaint: fall injury to ankles Time Seen by Provider: 01/30/20 12:24 Source: patient, RN notes reviewed Mode of arrival: wheelchair Limitations: physical limitation - History of Present Illness Initial Comments: This is a 24-year-old female presents emergency Department chief complaint of right and left ankle injury. Patient states that she has very minimal pain to her left and primary complaint of right ankle pain. She states that she was stepping down and states that she fell on a small hole. Patient will her ankles. Patient states right ankle swollen. Patient denies any current paresthesias. Denies any pain proximal or distal to her ankle. Patient denies any head injury no loss conscious. - Related Data Home Medications Medication Instructions Recorded Confirmed Ergocalciferol [Vitamin D2 50,000 unit PO MO 08/08/17 12/23/19 (DRISDOL)] lamoTRIgine [LaMICtal] 75 mg PO BID 08/08/17 12/23/19 nadoloL [Corgard] 20 mg PO HS 08/08/17 12/23/19 ALPRAZolam [Xanax] 1 mg PO HS 12/25/18 12/23/19 ALPRAZolam [Xanax] 0.5 mg PO DAILY@0800,1300 02/18/19 12/23/19 tiZANidine HCL [Zanaflex] 4 mg PO TID PRN 02/18/19 12/23/19 Desvenlafaxine Succinate [Pristiq 25 mg PO DAILY 03/25/19 12/23/19 ER] Psyllium Husk [Metamucil] 0.8 gm PO DAILY 10/21/19 12/23/19 Cetirizine HCl/Pseudoephedrine 1 each PO DAILY 12/23/19 12/23/19 [Zyrtec-D Tablet] Ferrous Sulfate [Feosol] 50 mg PO DAILY 12/23/19 12/23/19 Previous Rx's Medication Instructions Recorded Ibuprofen [Motrin] 600 mg PO Q8HR PRN #20 tab 01/30/20 Allergies Allergy/AdvReac Type Severity Reaction Status Date / Time asenapine maleate Allergy Rash/Hives Verified 01/30/20 12:24 [From Saphris] cefaclor [From Ceclor] Allergy Rash/Hives Verified 01/30/20 12:24 Review of Systems ROS Statement: Those systems with pertinent positive or pertinent negative responses have been documented in the HPI. ROS Other: All systems not noted in ROS Statement are negative. Past Medical History Past Medical History: Fibromyalgia, GERD/Reflux, Hypertension Additional Past Medical History / Comment(s): OCCASIONAL RESTLESS LEGS, MIGRAINES, STATES IRREGULAR HEART BEAT, LOW IRON - STATES IRON TRANSFUSIONS FEB 2019, History of Any Multi-Drug Resistant Organisms: None Reported Past Surgical History: Adenoidectomy, Appendectomy, Bariatric Surgery, Cholecystectomy, Ear Surgery, Orthopedic Surgery, Tonsillectomy Additional Past Surgical History / Comment(s): gastric sleeve-2011 in [place],MULT TUBES HENOK EARS, back injections, left foot Past Anesthesia/Blood Transfusion Reactions: No Reported Reaction Past Psychological History: Anxiety, Depression Smoking Status: Never smoker Past Alcohol Use History: None Reported Past Drug Use History: None Reported - Past Family History Mother Family Medical History: No Reported History Father Family Medical History: Hypertension General Exam Limitations: physical limitation General appearance: alert, in no apparent distress Head exam: Present: atraumatic, normocephalic, normal inspection Neck exam: Present: normal inspection. Absent: tenderness, meningismus, lymphadenopathy Respiratory exam: Present: normal lung sounds bilaterally. Absent: respiratory distress, wheezes, rales, rhonchi, stridor Cardiovascular Exam: Present: regular rate, normal rhythm, normal heart sounds. Absent: systolic murmur, diastolic murmur, rubs, gallop, clicks Extremities exam: Present: other (right leg there is no tenderness of the proximal tib-fib, there is moderate lateral malleolar tenderness, swelling noted neurovascular intact no foot tenderness full range of motion full-strength and nontender left ankle) Neurological exam: Present: reflexes normal. Absent: motor sensory deficit Course Vital Signs 01/30/20 12:22 Temperature 98.0 F Pulse Rate 83 Respiratory 18 Rate Blood Pressure 136/86 O2 Sat by Pulse 97 Oximetry Medical Decision Making - Medical Decision Making X-ray does not show an acute fracture. Patient is right ankle sprain. Patient was placed in a ankle stirrup splint and will follow-up with orthopedics if no improvement. Disposition Clinical Impression: Right ankle sprain Disposition: HOME SELF-CARE Condition: Stable Instructions (If sedation given, give patient instructions): Ankle Sprain (ED) Additional Instructions: Please return to the Emergency Department if symptoms worsen or any other concerns. Prescriptions: Ibuprofen [Motrin] 600 mg PO Q8HR PRN #20 tab PRN Reason: Pain Is patient prescribed a controlled substance at d/c from ED?: No Referrals: Nahid Durbin MD [Primary Care Provider] - 1-2 days Marcelo Pina DO [Doctor of Osteopathic Medicine] - 1-2 days Time of Disposition: 13:16
[2020-01-30] MEDS ORDERED: ONDANSETRON ODT 4 MG TAB PO STA (13:00)
--- NOTE | 2020-01-30 13:02 | XR ---
EXAMINATION TYPE: XR ankle complete RT DATE OF EXAM: 01/30/2020 CLINICAL HISTORY: Pain. Fall from porch. Right medial and posterior ankle pain. TECHNIQUE: Frontal, lateral and oblique images of the right ankle are obtained. COMPARISON: None. FINDINGS: There is no acute fracture/dislocation. The ankle mortise appears within normal limits. No rmal osseous mineralization. IMPRESSION: There is no acute fracture or dislocation in the right ankle.
[2020-01-30] MEDS ORDERED: ACET/COD 300 MG/30 MG STARTER PACK 6 TAB BTL PO STA (13:15)
== END 2020-01-30 13:33 | disposition home or self-care (01) ==
LOC: EC 12:21
DX: S93.401A Sprain of unspecified ligament of right ankle, initial encounter (principal); I10 Essential (primary) hypertension; M79.7 Fibromyalgia; F41.9 Anxiety disorder, unspecified; F32.9 Major depressive disorder, single episode, unspecified; Z79.899 Other long term (current) drug therapy; Z88.8 Allergy status to other drugs, medicaments and biological substances; Z88.1 Allergy status to other antibiotic agents; W17.2XXA Fall into hole, initial encounter
CPT/HCPCS: 73610; 99283; 29515; L4350

== ENCOUNTER → 2020-03-23 | Outpatient (CLI) | payer OTHER ==
[2020-03-23 13:18] VITALS: BP 136/93; PULSE 102; RESP 18; TEMP 98.2; BMI 51.1
--- NOTE | 2020-03-23 13:46 | P.PN ---
Subjective Progress Note Date: 03/23/20 DATE OF SERVICE: 03/23/2020 CHIEF COMPLAINT: Status post sleeve gastrectomy HISTORY OF PRESENT ILLNESS: Soni Mtz is a 24-year-old female status post sleeve gastrectomy 2011 at the age of [age] years old. She is 8 years out. She comes in with more weight gain. She is seeing Dr. Durbni for weight loss. She reports seeing an allergiest. She does not have food allergies. She reports severe gastroesophageal reflux disease. She is looking into another option for weight loss. She has intermittent nausea. At height of 5 foot 7 inches, ideal body weight is 158 pounds. Today she comes in 326 pounds from 319 pounds, 3 months ago. She has gained 7 pounds in 3 months. Highest lifetime weight of 330 pounds, BMI 51.8. Lifetime weight loss of 4 pounds. Percent excess weight loss of 2 % lifetime. PAST MEDICAL HISTORY: 1. Morbid obesity due to excess calories, now 51.1 2. 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 3. Fibromyalgia. 4. Osteoarthritis of the bilateral knees. 5. Depression. 6. Hypertensive heart disease 7. Vitamin D deficiency 8. Anxiety disorder 9. Asthma 10. Irritable bowel syndrome 11. Iron deficiency anemia PAST SURGICAL HISTORY: 1. Sleeve gastrectomy, 2011 2. Cholecystectomy. 3. Upper endoscopy. MEDICATIONS: Home Medications Medication Instructions Recorded Confirmed Ergocalciferol [Vitamin D2 50,000 unit PO MO 08/08/17 03/23/20 (DRISDOL)] lamoTRIgine [LaMICtal] 100 mg PO BID 08/08/17 03/23/20 nadoloL [Corgard] 20 mg PO HS 08/08/17 03/23/20 tiZANidine HCL [Zanaflex] 4 mg PO TID PRN 02/18/19 03/23/20 Desvenlafaxine Succinate [Pristiq 50 mg PO DAILY 03/25/19 03/23/20 ER] Psyllium Husk [Metamucil] 0.8 gm PO DAILY 10/21/19 03/23/20 Ferrous Sulfate [Feosol] 50 mg PO DAILY 12/23/19 03/23/20 busPIRone HCL [Buspar] 30 mg PO BID 03/23/20 03/23/20 Previous Rx's Medication Instructions Recorded Ibuprofen [Motrin] 600 mg PO Q8HR PRN #20 tab 01/30/20 Pantoprazole [Protonix] 40 mg PO DAILY #14 tablet. 03/23/20 LORazepam [Ativan] 0.5 mg PO TID PRN 3 Days #9 tab 04/06/20 ALLERGIES: SAPHRIS, CECLOR. Allergies Allergy/AdvReac Type Severity Reaction Status Date / Time asenapine maleate Allergy Rash/Hives Verified 02/26/19 18:17 [From Saphris] cefaclor [From Ceclor] Allergy Rash/Hives Verified 02/26/19 18:17 SOCIAL HISTORY: No active tobacco use. FAMILY HISTORY: Pertinent for morbid obesity. REVIEW OF SYSTEMS: CONSTITUTIONAL: At height of 5 foot 7 inches, ideal body weight is 158 pounds. Her highest lifetime weight of 330 pounds with BMI 51.8. PSYCH: She has multiple changes in anti-depressive medications. Has anxiety. Depressive disorder GENITOURINARY: Takes control pill. RESPIRATORY: Has trouble sleeping. Has obstructive sleep apnea. GASTROINTESTINAL: Has irritable bowel disease. History of gastroesophageal reflux disease. MUSCULOSKELETAL: History of lower back pain. Has reports bilateral hip and knee pain. NEUROLOGICAL: History of fibromyalgia. No seizure disorder. CARDIOVASCULAR: History of hypertension. Past chest pain. HEENT: Denies any trouble with vision, hearing or nosebleeds. No difficulty swallowing. LYMPHATIC: The patient denies any lumps and bumps around the neck. ENDOCRINE: Denies any thyroid disorders. Denies any blood sugar glucose intolerance. HEMATOLOGIC: Denies any abnormal bleeding or bruising. PHYSICAL EXAM: VITAL SIGNS: 5 feet 7 inches; 326 pounds. BMI 51.2 Vital Signs Temp 98.2 F 03/23/20 13:10 Pulse 102 H 03/23/20 13:10 Resp 18 03/23/20 13:10 BP 136/93 03/23/20 13:10 Pulse Ox 97 03/23/20 13:10 GENERAL: Well-developed female no acute distress. ABDOMEN: Soft. No peritonitis. No drainage from the abdomen. MUSCULOSKELETAL: No clubbing, cyanosis. CARDIOVASCULAR: Regular rate. 2+ radial pulses HEENT: No sclerae icterus. Extraocular movements grossly intact. Moist buccal mucosa. NECK: Supple without lymphadenopathy. CHEST: Unlabored respirations. Equal breath. NEURO: No focal or lateralizing signs. Cranial nerves II to XII intact. PSYCH: Appropriate affect. Alert and oriented to person, place and time. SKIN: Good skin turgor. Well perfused. ASSESSMENT: 1. Morbid obesity due to excess caloric intake 2. Body mass index 51.8 initial to 51.2 3. Gastroesophageal reflux disease. 4. Irritable bowel syndrome. 5. Status post sleeve gastrectomy. 6. 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 7. Dietary surveillance and counseling. 8. Vitamin D deficiency. 9. Secondary hyperparathyroidism. 10. Sleep disorder. 11. Weight gain following sleeve gastrectomy. 12. Adverse reactions from her medications with weight gain. 13. Iron deficiency anemia. 14. Diarrhea. 15. Zinc deficieny 16. Chronic diarrhea 17. Presbyesophagus 18. Abdominal pain PLAN: 1. She comes in with moderate weight re-gain. 2. Recommend 6 months of medical supervised weight loss. 3. Food diary journal with Dr. Durbin for weight loss and 5 days of each week. 4. Recommend dietitian visit for weight loss. 5. Alternatives for duodenal switch described for effective weight loss. 6. She reports gastroesophageal reflux disease with trial of Protonix Objective - Vital Signs Vital signs: Vital Signs Temp 98.2 F 03/23/20 13:10 Pulse 102 H 03/23/20 13:10 Resp 18 03/23/20 13:10 BP 136/93 03/23/20 13:10 Pulse Ox 97 03/23/20 13:10 Intake & Output 03/22/20 03/23/20 03/23/20 18:59 06:59 18:59 Weight 148.143 kg
== END | disposition home or self-care (01) ==
LOC: BARWHC3 12:57
PROVIDERS: ATTEND Surgery Plastic and Reconstructive Surgery
DX: E66.01 Morbid (severe) obesity due to excess calories (principal); K21.9 Gastro-esophageal reflux disease without esophagitis; E55.9 Vitamin D deficiency, unspecified; E21.1 Secondary hyperparathyroidism, not elsewhere classified; G47.9 Sleep disorder, unspecified; D50.9 Iron deficiency anemia, unspecified; E60 Dietary zinc deficiency; K52.9 Noninfective gastroenteritis and colitis, unspecified; K22.8 Other specified diseases of esophagus; R10.9 Unspecified abdominal pain; K58.9 Irritable bowel syndrome, unspecified; Z68.43 Body mass index [BMI] 50.0-59.9, adult; Z98.84 Bariatric surgery status; Z88.1 Allergy status to other antibiotic agents; Z79.899 Other long term (current) drug therapy
CPT/HCPCS: 99211

== ENCOUNTER 2020-04-06 17:24 | Emergency (ER) | payer OTHER ==
[2020-04-06 19:55] LABS: Appearance,Urine Clear (Clear); Bilirubin,Urine Negative (Negative); Blood,Urine Negative (Negative); Color,Urine Light Yellow; Glucose,Urine (UA) Negative (Negative); Ketones,Urine Negative (Negative); Leukocyte Esterase,Urine Negative (Negative); Nitrite,Urine Negative (Negative); PH, Urine 5.5 (5.0-8.0); Protein,Urine Negative (Negative); Specific Gravity,Urine 1.012 (1.001-1.035); Urobilinogen,Urine <2.0 mg/dL (<2.0)
[2020-04-06 20:02] LABS: Basophils # (A) 0.1 k/uL (0-0.2); Basophils % (A) 1 %; Eosinophils # (A) 0.2 k/uL (0-0.7); Eosinophils % (A) 2 %; HCT 42.7 % (34.0-46.0); HGB 13.1 gm/dL (11.4-16.0); Hypochromasia Marked; Lymphocytes # (A) 2.8 k/uL (1.0-4.8); Lymphocytes % (A) 32 %; MCH 28.5 pg (25.0-35.0); MCHC 30.8 g/dL (31.0-37.0); MCV 92.6 fL (80.0-100.0); Mean Platelet Volume 7.1; Monocytes # (A) 0.4 k/uL (0-1.0); Monocytes % (A) 4 %; Neutrophils # (A) 5.4 k/uL (1.3-7.7); Neutrophils % (A) 60 %; Platelet Count 319 k/uL (150-450); Poikilocytosis Slight; RBC 4.61 m/uL (3.80-5.40); RDW 14.8 % (11.5-15.5)
--- NOTE | 2020-04-06 20:09 | ED ---
Arrhythmia/Palpitations HPI - General Chief Complaint: Arrhythmia/Palpitations Stated Complaint: Racing Heart Time Seen by Provider: 04/06/20 17:30 Source: patient Mode of arrival: ambulatory Limitations: no limitations - History of Present Illness Initial Comments: Patient is a 24-year-old female presents emergency room with reported palpitations. States that for the past week the patient has had palpitations and difficulty sleeping. She does have a history of anxiety and depression. She has also been following the Dr. Sol. States that she had an echo done yesterday out of her she doesn't have the results yet. He does have her on a beta palmer which she has been taking once daily and states that she does not feel improved with her palpitations. Mother reports that she hasn't slept in 4- 5 days. She feels shaky with racing thoughts and shortness of breath. She does follow with a counselor through [facility]. They have been attempting to change her medications around. States she was recently taken off Prolixin. She did receive a prescription for Lexapro however she was unsure if she was supposed to start taking it. She denies any chest pain. No abdominal pain. Denies concern for . No lower externally swelling. Denies suicidal ideations. No family history of premature cardiac . Denies fevers or chills. No other alleviating, precipitating or modifying factors - Related Data Home Medications Medication Instructions Recorded Confirmed Ergocalciferol [Vitamin D2 50,000 unit PO MO 08/08/17 03/23/20 (DRISDOL)] lamoTRIgine [LaMICtal] 100 mg PO BID 08/08/17 03/23/20 nadoloL [Corgard] 20 mg PO HS 08/08/17 03/23/20 tiZANidine HCL [Zanaflex] 4 mg PO TID PRN 02/18/19 03/23/20 Desvenlafaxine Succinate [Pristiq 50 mg PO DAILY 03/25/19 03/23/20 ER] Psyllium Husk [Metamucil] 0.8 gm PO DAILY 10/21/19 03/23/20 Ferrous Sulfate [Feosol] 50 mg PO DAILY 12/23/19 03/23/20 busPIRone HCL [Buspar] 30 mg PO BID 03/23/20 03/23/20 Previous Rx's Medication Instructions Recorded Ibuprofen [Motrin] 600 mg PO Q8HR PRN #20 tab 01/30/20 Pantoprazole [Protonix] 40 mg PO DAILY #14 tablet. 03/23/20 LORazepam [Ativan] 0.5 mg PO TID PRN 3 Days #9 tab 04/06/20 Allergies Allergy/AdvReac Type Severity Reaction Status Date / Time asenapine maleate Allergy Rash/Hives Verified 04/06/20 17:35 [From Saphris] cefaclor [From Ceclor] Allergy Rash/Hives Verified 04/06/20 17:35 Review of Systems ROS Statement: Those systems with pertinent positive or pertinent negative responses have been documented in the HPI. ROS Other: All systems not noted in ROS Statement are negative. Past Medical History Past Medical History: Fibromyalgia, GERD/Reflux, Hypertension Additional Past Medical History / Comment(s): OCCASIONAL RESTLESS LEGS, MIGRAINES, STATES IRREGULAR HEART BEAT, LOW IRON - STATES IRON TRANSFUSIONS FEB 2019, History of Any Multi-Drug Resistant Organisms: None Reported Past Surgical History: Adenoidectomy, Appendectomy, Bariatric Surgery, Cholecystectomy, Ear Surgery, Orthopedic Surgery, Tonsillectomy Additional Past Surgical History / Comment(s): gastric sleeve-2011 in [place],MULT TUBES HENOK EARS, back injections, left foot Past Anesthesia/Blood Transfusion Reactions: No Reported Reaction Past Psychological History: Anxiety, Depression Smoking Status: Never smoker Past Alcohol Use History: None Reported Past Drug Use History: None Reported - Past Family History Mother Family Medical History: No Reported History Father Family Medical History: Hypertension General Exam Limitations: no limitations General appearance: alert, in no apparent distress, anxious Head exam: Present: atraumatic, normocephalic, normal inspection Eye exam: Present: normal appearance, PERRL, EOMI. Absent: scleral icterus, conjunctival injection, periorbital swelling ENT exam: Present: normal exam, mucous membranes moist Neck exam: Present: normal inspection. Absent: tenderness, meningismus, lymp hadenopathy Respiratory exam: Present: normal lung sounds bilaterally. Absent: respiratory distress, wheezes, rales, rhonchi, stridor Cardiovascular Exam: Present: normal rhythm, tachycardia, normal heart sounds. Absent: systolic murmur, diastolic murmur, rubs, gallop, clicks GI/Abdominal exam: Present: soft, normal bowel sounds. Absent: distended, tenderness, guarding, rebound, rigid Extremities exam: Present: normal inspection, full ROM, normal capillary refill. Absent: tenderness, pedal edema, joint swelling, calf tenderness Back exam: Present: normal inspection Neurological exam: Present: alert, oriented X3, CN II-XII intact Psychiatric exam: Present: anxious Skin exam: Present: warm, dry, intact, normal color. Absent: rash Course Vital Signs 04/06/20 04/06/20 04/06/20 17:32 20:00 21:19 Temperature 98.7 F Pulse Rate 105 H 101 H 103 H Respiratory 18 18 18 Rate Blood Pressure 121/77 129/81 132/76 O2 Sat by Pulse 100 98 99 Oximetry 04/06/20 21:48 Temperature 98.0 F Pulse Rate 95 Respiratory 20 Rate Blood Pressure 118/88 O2 Sat by Pulse 98 Oximetry EKG Findings - EKG Comments: EKG Findings:: EKG done which is normal sinus rhythm with a ventricular rate of 93. NC interval 148. QRS 82. QTC of 427. No acute ST segment elevations or depressions concerning for ischemic changes Medical Decision Making - Medical Decision Making Upon arrival patient was placed into room 16. A thorough history and physical exam was performed. Laboratory studies were conducted and the patient went for chest x-ray. Laboratory studies are reviewed and are unremarkable. Troponin is negative. Chest x-ray demonstrates no acute findings. Patient does have an EKG which demonstrates a normal sinus rhythm. Patient is observed in the emergency department for 3 hours. No signs of arrhythmia noted. Patient's heart rate does not go above 107. Blood pressure has remained stable. I did discuss results with the patient and her mother at bedside. They're frustrated they are unable to get through to [facility] to discuss her medications. I do contact [facility] however they do not have any connections with [facility]. Patient is requesting something to sleep at this time. I did inform her that I can give her shot of Ativan as well as send a prescription to the pharmacy for 3 days worth of medication. Patient is only to take the medication while she is not driving and preferably before bed. I did recommend that she call [facility] in the morning in order to clarify whether she should be taking the Lexapro. The patient needs to follow-up with Dr. Bravo in regards to obtaining her echo results. She understood this. If she has any new or worsening symptoms she s hould return to the emergency room. Patient was discharged home stable condition - Lab Data Result diagrams: 04/06/20 19:38 04/06/20 19:38 Lab Results 04/06/20 04/06/20 04/06/20 Range/Units 19:38 19:38 19:38 WBC 9.0 (3.8-10.6) k/uL RBC 4.61 (3.80-5.40) m/uL Hgb 13.1 (11.4-16.0) gm/dL Hct 42.7 (34.0-46.0) % MCV 92.6 (80.0-100.0) fL MCH 28.5 (25.0-35.0) pg MCHC 30.8 L (31.0-37.0) g/dL RDW 14.8 (11.5-15.5) % Plt Count 319 (150-450) k/uL MPV 7.1 Neutrophils % 60 % Lymphocytes % 32 % Monocytes % 4 % Eosinophils % 2 % Basophils % 1 % Neutrophils # 5.4 (1.3-7.7) k/uL Lymphocytes # 2.8 (1.0-4.8) k/uL Monocytes # 0.4 (0-1.0) k/uL Eosinophils # 0.2 (0-0.7) k/uL Basophils # 0.1 (0-0.2) k/uL Hypochromasia Marked Poikilocytosis Slight PT 9.6 (9.0-12.0) sec INR 0.9 (<1.2) APTT 25.4 (22.0-30.0) sec Sodium (137-145) mmol/L Potassium (3.5-5.1) mmol/L Chloride (98-107) mmol/L Carbon Dioxide (22-30) mmol/L Anion Gap mmol/L BUN (7-17) mg/dL Creatinine (0.52-1.04) mg/dL Est GFR (CKD-EPI)AfAm (>60 ml/min/1.73 sqM) Est GFR (CKD-EPI)NonAf (>60 ml/min/1.73 sqM) Glucose (74-99) mg/dL Calcium (8.4-10.2) mg/dL Magnesium (1.6-2.3) mg/dL Total Bilirubin (0.2-1.3) mg/dL AST (14-36) U/L ALT (4-34) U/L Alkaline Phosphatase (38-126) U/L Troponin I (0.000-0.034) ng/mL Total Protein (6.3-8.2) g/dL Albumin (3.5-5.0) g/dL Urine Color Light Yellow Urine Appearance Clear (Clear) Urine pH 5.5 (5.0-8.0) Ur Specific [place] 1.012 (1.001-1.035) Urine Protein Negative (Negative) Urine Glucose (UA) Negative (Negative) Urine Ketones Negative (Negative) Urine Blood Negative (Negative) Urine Nitrite Negative (Negative) Urine Bilirubin Negative (Negative) Urine Urobilinogen <2.0 (<2.0) mg/dL Ur Leukocyte Esterase Negative (Negative) Urine HCG, Qual (Not Detectd) 04/06/20 04/06/20 04/06/20 Range/Units 19:38 19:38 19:38 WBC (3.8-10.6) k/uL RBC (3.80-5.40) m/uL Hgb (11.4-16.0) gm/dL Hct (34.0-46.0) % MCV (80.0-100.0) fL MCH (25.0-35.0) pg MCHC (31.0-37.0) g/dL RDW (11.5-15.5) % Plt Count (150-450) k/uL MPV Neutrophils % % Lymphocytes % % Monocytes % % Eosinophils % % Basophils % % Neutrophils # (1.3-7.7) k/uL Lymphocytes # (1.0-4.8) k/uL Monocytes # (0-1.0) k/uL Eosinophils # (0-0.7) k/uL Basophils # (0-0.2) k/uL Hypochromasia Poikilocytosis PT (9.0-12.0) sec INR (<1.2) APTT (22.0-30.0) sec Sodium 138 (137-145) mmol/L Potassium 4.4 (3.5-5.1) mmol/L Chloride 107 (98-107) mmol/L Carbon Dioxide 23 (22-30) mmol/L Anion Gap 8 mmol/L BUN 12 (7-17) mg/dL Creatinine 0.72 (0.52-1.04) mg/dL Est GFR (CKD-EPI)AfAm >90 (>60 ml/min/1.73 sqM) Est GFR (CKD-EPI)NonAf >90 (>60 ml/min/1.73 sqM) Glucose 93 (74-99) mg/dL Calcium 9.5 (8.4-10.2) mg/dL Magnesium 2.0 (1.6-2.3) mg/dL Total Bilirubin 0.5 (0.2-1.3) mg/dL AST 20 (14-36) U/L ALT 13 (4-34) U/L Alkaline Phosphatase 115 (38-126) U/L Troponin I <0.012 (0.000-0.034) ng/mL Total Protein 6.8 (6.3-8.2) g/dL Albumin 4.0 (3.5-5.0) g/dL Urine Color Urine Appearance (Clear) Urine pH (5.0-8.0) Ur Specific [place] (1.001-1.035) Urine Protein (Negative) Urine Glucose (UA) (Negative) Urine Ketones (Negative) Urine Blood (Negative) Urine Nitrite (Negative) Urine Bilirubin (Negative) Urine Urobilinogen (<2.0) mg/dL Ur Leukocyte Esterase (Negative) Urine HCG, Qual Not Detected (Not Detectd) Disposition Clinical Impression: Anxiety, Palpitations Disposition: HOME SELF-CARE Condition: Stable Instructions (If sedation given, give patient instructions): Heart Palpitations (ED) Additional Instructions: Please use the Ativan at night for sleep. Return to the emergency room for any new or worsening symptoms. Call [facility] in the morning to clarify if you should be taking the lexapro Prescriptions: LORazepam [Ativan] 0.5 mg PO TID PRN 3 Days #9 tab PRN Reason: Anxiety Is patient prescribed a controlled substance at d/c from ED?: Yes When asked, does pt state using other controlled substances?: No If prescribed controlled substance>3 days was MAPS reviewed?: Prescribed <3 Days Referrals: Nahid Durbin MD [Primary Care Provider] - 1-2 days Time of Disposition: 21:36
[2020-04-06 20:10] LABS: ALT 13 U/L (4-34); AST 20 U/L (14-36); African American GFR (CKD) >90 (>60 ml/min/1.73 sqM); Alkaline Phosphatase 115 U/L (38-126); Anion Gap 8 mmol/L; Blood Urea Nitrogen 12 mg/dL (7-17); Calcium 9.5 mg/dL (8.4-10.2); Carbon Dioxide 23 mmol/L (22-30); Chloride 107 mmol/L (98-107); Glucose 93 mg/dL (74-99); Non-African American GFR(CKD) >90 (>60 ml/min/1.73 sqM); Potassium 4.4 mmol/L (3.5-5.1); Sodium 138 mmol/L (137-145); Total Bilirubin 0.5 mg/dL (0.2-1.3); Total Protein 6.8 g/dL (6.3-8.2)
[2020-04-06 20:14] LABS: INR 0.9 (<1.2); Partial Thromboplastin Time 25.4 sec (22.0-30.0); Prothrombin Time 9.6 sec (9.0-12.0)
--- NOTE | 2020-04-06 20:50 | XR ---
EXAMINATION TYPE: XR chest 2V DATE OF EXAM: 04/06/2020 COMPARISON: 12/25/2018 HISTORY: Dysrhythmia TECHNIQUE: 2 views FINDINGS: Heart and mediastinum are normal. Lungs are clear. Diaphragm is normal. Bony thorax appears normal. IMPRESSION: Normal chest. No change.
[2020-04-06] MEDS ORDERED: LORazepam 2 MG/ML INJ IV STA (21:34)
[2020-04-06 22:32] VITALS: BP 118/88; PULSE 95; RESP 20; TEMP 98
== END 2020-04-06 21:48 | disposition home or self-care (01) ==
LOC: EC 17:24
DX: F41.9 Anxiety disorder, unspecified (principal); R00.2 Palpitations; R06.02 Shortness of breath; R00.0 Tachycardia, unspecified; F32.9 Major depressive disorder, single episode, unspecified; M79.7 Fibromyalgia; K21.9 Gastro-esophageal reflux disease without esophagitis; I10 Essential (primary) hypertension; G25.81 Restless legs syndrome; G43.909 Migraine, unspecified, not intractable, without status migrainosus; Z79.899 Other long term (current) drug therapy; Z88.1 Allergy status to other antibiotic agents; Z88.8 Allergy status to other drugs, medicaments and biological substances; Z98.84 Bariatric surgery status
CPT/HCPCS: 99285; 96374; 36415; 93005; 80053; 83735; 84484; 85025; 85610; 85730; 81003; 81025; 71046; J2060

== ENCOUNTER → 2020-07-29 | Outpatient (CLI) | payer OTHER | END | disposition home or self-care (01) | LOC: LABWHC1 12:01 | PROVIDERS: ATTEND Nurse Practitioner Adult Health | DX: R00.2 Palpitations (principal) | CPT/HCPCS: 36415; 84443; 84481 ==

== ENCOUNTER 2020-08-16 11:51 | Day surgery (SDC) | payer OTHER ==
[2020-08-12 13:56] VITALS: BMI 50.8
[~2020-08-16 11:51] MED LIST changes: +SODIUM CHLORIDE 0.9% 1,000 ML IV SCH; -SODIUM CHLORIDE 0.9% 500 ML 500 ML in EMPTY BAG 1 BAG IV PRN
[2020-08-16 12:15] VITALS: BP 142/99; RESP 16; TEMP 98.2
[2020-08-16] MEDS ORDERED: SODIUM CHLORIDE 0.9% 500 ML 500 ML IV ONE (12:17)
[2020-08-16 15:09] VITALS: PULSE 105
--- NOTE | 2020-08-16 19:45 | P.EPPROC ---
- EP Procedure Note Electrophysiology Procedure Note: Diagnosis Recurrent presyncope and syncope Twelve-lead EKG shows sinus rhythm normal heart rates normal FL narrow QRS normal ST segments Normal twelve-lead EKG Tilt table test per protocol Baseline blood pressure 126/80 mmHg Baseline heart rate 85 beats a minute she was dizzy upon standing up but this settled down Blood pressure remained stable but there was increase in her heart rate to 138 beats a minute within the first 10 minutes. Heart rates remained in the 140s to 150s She felt her heart race She a heart time breathing She felt warm and clammy and shaky as well as intermittently nauseous When she was laid supine heart rate decreased to 110 beats a minute Impression Normal twelve-lead EKG Orthostatic intolerance /Postural tachycardia syndrome
== END 2020-08-16 15:13 | disposition home or self-care (01) ==
LOC: CATHEP 11:51
PROVIDERS: ATTEND Internal Medicine Clinical Cardiac Electrophysiology
DX: Z88.1 Allergy status to other antibiotic agents (principal); R00.0 Tachycardia, unspecified; I10 Essential (primary) hypertension; Z20.822 Contact with and (suspected) exposure to COVID-19; Z79.899 Other long term (current) drug therapy
CPT/HCPCS: 81025; 87635; 93660

== ENCOUNTER 2020-08-20 21:17 | Emergency (ER) | payer OTHER ==
[2020-08-20 21:23] VITALS: TEMP 97.9
--- NOTE | 2020-08-20 21:40 | ED ---
Chest Pain HPI - General Chief Complaint: Chest Pain Stated Complaint: Chest pain Time Seen by Provider: 08/20/20 21:30 Source: patient, family Mode of arrival: wheelchair Limitations: no limitations - History of Present Illness Initial Comments: This patient is a 24-year-old woman who presents to be evaluated for palpitations and chest pressure. The patient states that this problem has been going on for about one year. She has seen the engineer rf deployment's about this and been tried on a number of medications which she states have not helped. Today she notes that her heart rate has been between the 120s and 160s at home. She states that she tried her usual home medication which is Xanax and she is not having relief of symptoms tonight so she presented here for further evaluation. There has been no diaphoresis, dyspnea, nausea or vomiting. MD Complaint: chest pain Onset/Timin -: year(s) Onset: during rest Pain Location: substernal Pain Radiation: none Severity: moderate Quality: dull Consistency: intermittent Improves With: nothing Worsens With: nothing Other Symptoms: palpitations Treatments Prior to Arrival: other (Xanax) - Related Data Home Medications Medication Instructions Recorded Confirmed Ergocalciferol [Vitamin D2 50,000 unit PO MO 08/08/17 08/16/20 (DRISDOL)] lamoTRIgine [LaMICtal] 100 mg PO BID 08/08/17 08/16/20 tiZANidine HCL [Zanaflex] 4 mg PO TID PRN 02/18/19 08/16/20 ALPRAZolam [Xanax] 0.5 mg PO DAILY 08/12/20 08/16/20 Medroxyprogesterone Acetate 150 mg IM Q90D 08/12/20 08/12/20 [Depo-Provera] Previous Rx's Medication Instructions Recorded Pantoprazole [Protonix] 40 mg PO DAILY #14 tablet. 03/23/20 LORazepam [Ativan] 1 mg PO TID 3 Days #9 tab 08/21/20 Allergies Allergy/AdvReac Type Severity Reaction Status Date / Time asenapine maleate Allergy Rash/Hives Verified 08/12/20 13:32 [From Saphris] cefaclor [From Ceclor] Allergy Rash/Hives Verified 08/12/20 13:32 Review of Systems ROS Statement: Those systems with pertinent positive or pertinent negative responses have been documented in the HPI. ROS Other: All systems not noted in ROS Statement are negative. Constitutional: Denies: fever, chills Respiratory: Denies: cough, dyspnea Cardiovascular: Reports: chest pain, palpitations, dyspnea on exertion. Denies: orthopnea, edema, syncope Gastrointestinal: Denies: abdominal pain, nausea, vomiting Genitourinary: Denies: dysuria, hematuria Musculoskeletal: Denies: back pain Skin: Denies: rash Neurological: Denies: headache, weakness, numbness EKG Findings - EKG Results: EKG: interpreted by ERMD, sinus rhythm, normal axis, normal QRS EKG shows: tachycardia (Rate 120 bpm) - Blocks, Gilmer, Hypertrophy, ST Abn: Repolarization changes or abnormalities: nonspecific abnormality, ST segment, and/or T wave Past Medical History Past Medical History: Fibromyalgia, GERD/Reflux, Hypertension, Osteoarthritis ( OA) Additional Past Medical History / Comment(s): OCCASIONAL RESTLESS LEGS, MIGRAINES, STATES IRREGULAR HEART BEAT, HX LOW IRON WITH IRON TRANSFUSIONS (FEB 2019). Recently having issues with fast heart rate and palpitations. History of Any Multi-Drug Resistant Organisms: None Reported Past Surgical History: Adenoidectomy, Appendectomy, Bariatric Surgery, Cholecystectomy, Ear Surgery, Orthopedic Surgery, Tonsillectomy Additional Past Surgical History / Comment(s): Gastric Sleeve, multiple bilater al ear tubes, back injections, left foot surgery. Past Anesthesia/Blood Transfusion Reactions: No Reported Reaction Past Psychological History: Anxiety, Depression Smoking Status: Never smoker Past Alcohol Use History: None Reported Past Drug Use History: None Reported - Past Family History Mother Family Medical History: No Reported History Father Family Medical History: Hypertension General Exam Limitations: no limitations General appearance: alert, in no apparent distress Head exam: Present: atraumatic, normocephalic Eye exam: Present: normal appearance. Absent: scleral icterus, conjunctival injection Neck exam: Present: normal inspection Respiratory exam: Present: normal lung sounds bilaterally. Absent: respiratory distress, wheezes, rales, rhonchi, stridor, chest wall tenderness, accessory muscle use, decreased breath sounds, prolonged expiratory Cardiovascular Exam: Present: normal rhythm, tachycardia (Heart rate is 124 at my exam), normal heart sounds. Absent: systolic murmur, diastolic murmur, rubs, gallop GI/Abdominal exam: Present: soft. Absent: distended, tenderness, guarding, rebound, rigid, mass Extremities exam: Present: normal inspection, normal capillary refill. Absent: pedal edema, calf tenderness Back exam: Present: normal inspection. Absent: CVA tenderness (R), CVA tenderness (L) Neurological exam: Present: alert Skin exam: Present: warm, dry, intact, normal color. Absent: rash Course Vital Signs 08/20/20 08/20/20 21:18 22:55 Temperature 97.9 F Pulse Rate 133 H 90 Respiratory 18 18 Rate Blood Pressure 125/76 143/95 O2 Sat by Pulse 98 99 Oximetry Disposition Clinical Impression: Tachycardia Disposition: HOME SELF-CARE Condition: Good Instructions (If sedation given, give patient instructions): Tachycardia (ED) Prescriptions: LORazepam [Ativan] 1 mg PO TID 3 Days #9 tab Is patient prescribed a controlled substance at d/c from ED?: No Referrals: Nahid Durbin MD [Primary Care Provider] - 1-2 days
[2020-08-20] MEDS ORDERED: SODIUM CHLORIDE 0.9% 1,000 ML IV ONE (21:50)
[2020-08-20] MEDS ORDERED: LORazepam 2 MG/ML INJ IV STA (21:54)
[2020-08-20 22:45] LABS: Basophils # (A) 0.1 k/uL (0-0.2); Basophils % (A) 1 %; Eosinophils # (A) 0.3 k/uL (0-0.7); Eosinophils % (A) 3 %; HCT 38.6 % (34.0-46.0); HGB 13.1 gm/dL (11.4-16.0); Lymphocytes # (A) 3.5 k/uL (1.0-4.8); Lymphocytes % (A) 30 %; MCH 29.2 pg (25.0-35.0); MCHC 33.9 g/dL (31.0-37.0); MCV 86.1 fL (80.0-100.0); Mean Platelet Volume 6.9; Monocytes # (A) 0.5 k/uL (0-1.0); Monocytes % (A) 5 %; Neutrophils # (A) 7.2 k/uL (1.3-7.7); Neutrophils % (A) 62 %; Platelet Count 320 k/uL (150-450); RBC 4.48 m/uL (3.80-5.40); RDW 12.3 % (11.5-15.5); WBC 11.7 k/uL (3.8-10.6)
--- NOTE | 2020-08-20 22:46 | XR ---
EXAMINATION TYPE: XR chest 2V DATE OF EXAM: 08/20/2020 COMPARISON: 04/06/2020 HISTORY: Chest pain TECHNIQUE: FINDINGS: Heart and mediastinum are normal. Lungs are clear. Diaphragm is normal. Bony thorax is norm al. There are chest leads. IMPRESSION: Normal chest. No change.
[2020-08-20 22:59] LABS: ALT 13 U/L (4-34); AST 17 U/L (14-36); African American GFR (CKD) >90 (>60 ml/min/1.73 sqM); Albumin 3.6 g/dL (3.5-5.0); Alkaline Phosphatase 94 U/L (38-126); Anion Gap 8 mmol/L; Blood Urea Nitrogen 13 mg/dL (7-17); Calcium 8.8 mg/dL (8.4-10.2); Carbon Dioxide 22 mmol/L (22-30); Chloride 109 mmol/L (98-107); Glucose 108 mg/dL (74-99); Magnesium 2.1 mg/dL (1.6-2.3); Non-African American GFR(CKD) >90 (>60 ml/min/1.73 sqM); Potassium 3.8 mmol/L (3.5-5.1); Sodium 139 mmol/L (137-145); Total Bilirubin 0.3 mg/dL (0.2-1.3); Total Protein 5.9 g/dL (6.3-8.2)
[2020-08-20 23:18] LABS: D-Dimer 0.32 mg/L FEU (<0.60); INR 0.9 (<1.2); Prothrombin Time 9.7 sec (9.0-12.0)
[2020-08-20 23:25] LABS: Partial Thromboplastin Time 20.3 sec (22.0-30.0)
[2020-08-21 02:40] VITALS: BP 121/90; PULSE 81; RESP 16
== END 2020-08-21 00:35 | disposition home or self-care (01) ==
LOC: EC 21:17
DX: R00.0 Tachycardia, unspecified (principal); I10 Essential (primary) hypertension; K21.9 Gastro-esophageal reflux disease without esophagitis; M19.90 Unspecified osteoarthritis, unspecified site; M79.7 Fibromyalgia; F32.9 Major depressive disorder, single episode, unspecified; F41.9 Anxiety disorder, unspecified; Z90.09 Acquired absence of other part of head and neck; Z90.49 Acquired absence of other specified parts of digestive tract
CPT/HCPCS: 36415; 93005; 85379; 80053; 84443; 83735; 84484; 85025; 85610; 85730; 81025; 71046; 99285; 96374; 96361; J2060

== ENCOUNTER → 2020-10-14 | Outpatient (CLI) | payer OTHER ==
[2020-10-15 04:14] LABS: Albumin 4.5 g/dL (3.80-4.90); Albumin/Globulin Ratio 2.14 (1.60-3.17); Anion Gap 10.3 mmol/L (4.00-12.00); BUN/Creat Ratio 12.22 Ratio (12.00-20.00); Carbon Dioxide 22.7 mmol/L (21.6-31.8); Globulin 2.1 g/dL (1.6-3.3); Non-African American GFR(CKD) 88.9 (60.0-200.0); Phosphorus 3.9 mg/dL (2.4-5.1); Potassium 4.6 mmol/L (3.5-5.5); Total Bilirubin 0.6 mg/dL (0.3-1.2); Total Protein 6.6 g/dL (6.2-8.2)
[2020-10-15 04:24] LABS: T4, Free (Free Thyroxine) 1.1 ng/dL (0.80-1.80)
== END | disposition home or self-care (01) ==
LOC: LABWHC1 12:47
PROVIDERS: ATTEND Internal Medicine
DX: E05.90 Thyrotoxicosis, unspecified without thyrotoxic crisis or storm (principal); E55.9 Vitamin D deficiency, unspecified; E21.5 Disorder of parathyroid gland, unspecified; R00.2 Palpitations
CPT/HCPCS: 36415; 80053; 82306; 83835; 83970; 84100; 84439; 84443; 84481

== ENCOUNTER 2020-12-28 13:16 | Emergency (ER) | payer OTHER ==
[2020-12-28 13:25] VITALS: BP 144/96; PULSE 81; RESP 16; TEMP 99
--- NOTE | 2020-12-28 13:45 | XR ---
EXAMINATION TYPE: XR chest 2V DATE OF EXAM: 12/28/2020 COMPARISON: 08/20/2020 HISTORY: 25-year-old female with cough TECHNIQUE: PA and lateral views FINDINGS: The cardiomediastinal silhouette, aorta, and pulmonary vasculature are within normal limits. There is some strandy atelectasis in the lower lungs. Otherwise, lungs and pleural spaces are clear. IMPRESSION: No acute cardiopulmonary process.
--- NOTE | 2020-12-28 13:47 | ED ---
URI HPI - General Chief Complaint: Upper Respiratory Infection Stated Complaint: SOB, congestion, cough Time Seen by Provider: 12/28/20 13:25 Source: patient, RN notes reviewed Mode of arrival: ambulatory Limitations: no limitations - History of Present Illness Initial Comments: 25-year-old female presents emergency Department chief complaint cough armen vo. Patient states she's been sick since Saturday states that she saw PCP and Saturday had a negative cover test, was placed on Levaquin, promethazine cough syrup. Patient states that she doesn't feel like she's getting any better no vomiting no diarrhea no constipation. Patient states she has nasal congestion, mild sore throat. - Related Data Home Medications Medication Instructions Recorded Confirmed Ergocalciferol [Vitamin D2 50,000 unit PO MO 08/08/17 12/28/20 (DRISDOL)] tiZANidine HCL [Zanaflex] 4 mg PO TID PRN 02/18/19 12/28/20 ALPRAZolam [Xanax] 0.5 mg PO TID PRN 08/12/20 12/28/20 Butalb/APAP/Caff 50-325-40Mg 1 tab PO Q12H PRN 12/28/20 12/28/20 [Fioricet 50-325-40] Cetirizine HCl [Zyrtec] 10 mg PO DAILY 12/28/20 12/28/20 Desvenlafaxine Succinate [Pristiq] 50 mg PO DAILY 12/28/20 12/28/20 Dicyclomine [Bentyl] 10 mg PO TID PRN 12/28/20 12/28/20 Ibuprofen [Motrin] 800 mg PO QID PRN 12/28/20 12/28/20 Levofloxacin [Levaquin] 500 mg PO DAILY 12/28/20 12/28/20 Levonorgestrel [Kyleena (IUD)] 1 implant VAGINAL [id number] 12/28/20 12/28/20 Mirtazapine [Remeron] 30 mg PO HS 12/28/20 12/28/20 Nadolol [Corgard] 20 mg PO DAILY 12/28/20 12/28/20 Ondansetron Odt [Zofran Odt] 4 mg PO Q12HR PRN 12/28/20 12/28/20 lamoTRIgine [LaMICtal] 100 mg PO BID 12/28/20 12/28/20 traZODone HCL 150 mg PO HS 12/28/20 12/28/20 traZODone HCL [Desyrel] 100 mg PO HS 12/28/20 12/28/20 Previous Rx's Medication Instructions Recorded Pantoprazole [Protonix] 40 mg PO DAILY #14 tablet. 03/23/20 Allergies Allergy/AdvReac Type Severity Reaction Status Date / Time asenapine maleate Allergy Rash/Hives Verified 12/28/20 14:41 [From Saphris] cefaclor [From Ceclor] Allergy Rash/Hives Verified 12/28/20 14:41 Review of Systems ROS Statement: Those systems with pertinent positive or pertinent negative responses have been documented in the HPI. ROS Other: All systems not noted in ROS Statement are negative. Past Medical History Past Medical History: Fibromyalgia, GERD/Reflux, Hypertension, Osteoarthritis (OA) Additional Past Medical History / Comment(s): OCCASIONAL RESTLESS LEGS, MIGRAINES, STATES IRREGULAR HEART BEAT, HX LOW IRON WITH IRON TRANSFUSIONS (FEB 2019). Recently having issues with fast heart rate and palpitations. History of Any Multi-Drug Resistant Organisms: None Reported Past Surgical History: Adenoidectomy, Appendectomy, Bariatric Surgery, Cholecystectomy, Ear Surgery, Orthopedic Surgery, Tonsillectomy Additional Past Surgical History / Comment(s): Gastric Sleeve, multiple bilateral ear tubes, back injections, left foot surgery. Past Anesthesia/Blood Transfusion Reactions: No Reported Reaction Past Psychological History: Anxiety, Depression Smoking Status: Never smoker Past Alcohol Use History: None Reported Past Drug Use History: None Reported - Past Family History Mother Family Medical History: No Reported History Father Family Medical History: Hypertension General Exam Limitations: no limitations General appearance: alert, in no apparent distress Head exam: Present: atraumatic, normocephalic, normal inspection Eye exam: Present: normal appearance, PERRL, EOMI. Absent: scleral icterus, conjunctival injection, periorbital swelling ENT exam: Present: normal exam, normal oropharynx, mucous membranes moist Neck exam: Present: normal inspection, full ROM. Absent: tenderness, meningismus, lymphadenopathy Respiratory exam: Present: normal lung sounds bilaterally. Absent: respiratory distress, wheezes, rales, rhonchi, stridor Cardiovascular Exam: Present: regular rate, normal rhythm, normal heart sounds. Absent: systolic murmur, diastolic murmur, rubs, gallop, clicks GI/Abdominal exam: Present: soft, normal bowel sounds. Absent: distended, tenderness, guarding, rebound, rigid Neurological exam: Present: alert, oriented X3 Skin exam: Present: warm, dry, intact, normal color. Absent: rash Course Vital Signs 12/28/20 13:21 Temperature 99 F Pulse Rate 81 Respiratory 16 Rate Blood Pressure 144/96 O2 Sat by Pulse 96 Oximetry Medical Decision Making - Medical Decision Making X-rays unremarkable. Patient has a viral URI she is currently on Levaquin and promethazine will be discharged in stable condition she is advised to take [id number] supportive medication. Disposition Clinical Impression: Acute upper respiratory infection Disposition: HOME SELF-CARE Condition: Stable Instructions (If sedation given, give patient instructions): Upper Respiratory Infection (ED) Additional Instructions: Please return to the Emergency Department if symptoms worsen or any other concerns. Is patient prescribed a controlled substance at d/c from ED?: No Referrals: Nahid Durbin MD [Primary Care Provider] - 1-2 days Time of Disposition: 14:48
== END 2020-12-28 14:59 | disposition home or self-care (01) ==
LOC: EC 13:16
DX: J06.9 Acute upper respiratory infection, unspecified (principal); I10 Essential (primary) hypertension; G43.909 Migraine, unspecified, not intractable, without status migrainosus; Z88.1 Allergy status to other antibiotic agents; Z79.899 Other long term (current) drug therapy
CPT/HCPCS: 71046; 99284

== ENCOUNTER → 2021-04-14 | Outpatient (CLI) | payer OTHER ==
[2021-04-14 13:02] LABS: Partial Thromboplastin Time 23.6 sec (22.0-30.0); Prothrombin Time 10.3 sec (9.0-12.0)
[2021-04-14 21:06] LABS: HGB 13.2 g/dL (12.0-15.0); MCH 27.5 pg (27.0-32.0); MCV 91.7 fL (80.0-97.0); Mean Platelet Volume 10.1 fL (9.5-12.2); Platelet Count 291 X 10*3/uL (140-440); RDW 12.5 % (11.5-14.5)
[2021-04-14 21:33] LABS: % Iron Saturation 18.24 (12.00-45.00); ALT 12 U/L (8-44); AST 13 U/L (13-35); African American GFR (CKD) 116.2 (60.0-200.0); Albumin 4.4 g/dL (3.8-4.9); Albumin/Globulin Ratio 2.23 (1.60-3.17); Alkaline Phosphatase 82 U/L (41-126); BUN/Creat Ratio 16.17 Ratio (12.00-20.00); Blood Urea Nitrogen 13.1 mg/dL (9.0-27.0); Calcium 9.5 mg/dL (8.7-10.3); Carbon Dioxide 26.7 mmol/L (20.0-27.5); Chloride 104 mmol/L (96-109); Chol/HDL Ratio 2.72 Ratio; Ferritin 61.1 ng/mL (10.0-291.0); Glucose 103 mg/dL (70-110); Iron 67 ug/dL (50-170); LDL Cholesterol,Calculated 73.1 mg/dL (0.0-131.0); Magnesium 2.1 mg/dL (1.5-2.4); Non-African American GFR(CKD) 100.2 (60.0-200.0); Phosphorus 3.5 mg/dL (2.4-5.1); Potassium 4.7 mmol/L (3.5-5.5); Prealbumin 23.6 mg/dL (18.0-42.0); Sodium 141 mmol/L (135-145); Total Iron Binding Capacity 367 ug/dL (228-460); Total Protein 6.4 g/dL (6.2-8.2); VLDL Calculation 17.96 mg/dL (5.00-40.00)
[2021-04-17 14:02] LABS: Zinc, Serum 61 ug/dL (60-130)
[2021-04-18 06:15] LABS: Vitamin A 50 ug/dL (38-106)
[2021-04-18 11:50] LABS: Vit B1(Thiamine) 71 ug/L (38-122)
== END | disposition home or self-care (01) ==
LOC: LABWHC1 12:14
PROVIDERS: ATTEND Surgery Plastic and Reconstructive Surgery
DX: E89.1 Postprocedural hypoinsulinemia (principal); D50.8 Other iron deficiency anemias; E44.0 Moderate protein-calorie malnutrition; E55.9 Vitamin D deficiency, unspecified; K74.1 Hepatic sclerosis; N19 Unspecified kidney failure; K50.90 Crohn's disease, unspecified, without complications
CPT/HCPCS: 36415; 80053; 80061; 82306; 82525; 82607; 82728; 82746; 83036; 83540; 83550; 83735; 83970; 84100; 84134; 84255; 84425; 84443; 84590; 84630; 85027; 85610; 85730

== ENCOUNTER → 2021-04-27 | Outpatient (CLI) | payer OTHER | END | disposition home or self-care (01) | LOC: LABPAT 13:20 | PROVIDERS: ATTEND Surgery Plastic and Reconstructive Surgery | DX: Z20.822 Contact with and (suspected) exposure to COVID-19 (principal) | CPT/HCPCS: U0003; C9803; U0005 ==

== ENCOUNTER 2021-05-01 06:38 | Day surgery (SDC) | payer OTHER ==
[2021-04-25 15:05] VITALS: BMI 47.0
[~2021-05-01 06:38] MED LIST changes: +LACTATED RINGERS 1,000 ML IV SCH; +LIDOCAINE 1% (10MG/ML) FOR IV START INTRADERMA PRN; -SODIUM CHLORIDE 0.9% 1,000 ML IV SCH
[2021-05-01 07:15] VITALS: RESP 16; TEMP 96.7
[2021-05-01] MEDS ORDERED: LIDOCAINE 1% INJ 10MG/ML (20 ML MDV) ONE (07:46)
[2021-05-01] MEDS ORDERED: PROPOFOL 10 MG/ML 20 ML VIAL IV ONE (07:46)
--- NOTE | 2021-05-01 08:06 | P.GSHP ---
History of Present Illness H&P Date: 05/01/21 CHIEF COMPLAINT: GERD HISTORY OF PRESENT ILLNESS: The patient is a 25-year-old female who presents reports gastroesophageal reflux disease. Upper endoscopy was offered for further evaluation and management. PAST MEDICAL HISTORY: Please see list. PAST SURGICAL HISTORY: Please see list. MEDICATIONS: Please see list. ALLERGIES: Please see list. SOCIAL HISTORY: No illicit drug use FAMILY HISTORY: No reports of Crohn disease or ulcerative colitis. REVIEW OF ORGAN SYSTEMS: CONSTITUTIONAL: No reports of fevers or chills. GI: Denies any blood in stools or constipation. PHYSICAL EXAM: VITAL SIGNS: Stable GENERAL: Well-developed and pleasant in no acute distress. HEENT: No scleral icterus. Extraocular movements grossly intact. Moist buccal mucosa. NECK: Supple without lymphadenopathy. CHEST: Unlabored respirations. Equal bilateral excursions. CARDIOVASCULAR: Regular rate and rhythm. Distal 2+ pulses. ABDOMEN: Soft, nondistended. MUSCULOSKELETAL: No clubbing, cyanosis, or edema. ASSESSMENT: 1. Gastroesophageal reflux disease PLAN: 1. Recommend proceeding with an upper endoscopy Past Medical History Past Medical History: Fibromyalgia, GERD/Reflux, Hypertension, Osteoarthritis (OA) Additional Past Medical History / Comment(s): OCCASIONAL RESTLESS LEGS, MIGRAINES, STATES IRREGULAR HEART BEAT, HX LOW IRON WITH IRON TRANSFUSIONS (FEB 2019). Recently having issues with fast heart rate and palpitations. History of Any Multi-Drug Resistant Organisms: None Reported Past Surgical History: Adenoidectomy, Appendectomy, Bariatric Surgery, Cholec ystectomy, Ear Surgery, Orthopedic Surgery, Tonsillectomy Additional Past Surgical History / Comment(s): Gastric Sleeve, multiple bilateral ear tubes, back injections, left foot surgery. Past Anesthesia/Blood Transfusion Reactions: No Reported Reaction Smoking Status: Never smoker - Past Family History Mother Family Medical History: No Reported History Father Family Medical History: Hypertension Medications and Allergies Home Medications Medication Instructions Recorded Confirmed Type Ergocalciferol [Vitamin D2 50,000 unit PO MO 08/08/17 05/01/21 History (ISDOL)] tiZANidine HCL [Zanaflex] 4 mg PO TID PRN 02/18/19 05/01/21 History Pantoprazole [Protonix] 40 mg PO DAILY #14 tablet.dr 03/23/20 05/01/21 Rx ALPRAZolam [Xanax] 0.5 mg PO TID PRN 08/12/20 05/01/21 History Desvenlafaxine Succinate [Pristiq] 50 mg PO DAILY 12/28/20 05/01/21 History Dicyclomine [Bentyl] 10 mg PO TID PRN 12/28/20 05/01/21 History Levonorgestrel [Kyleena (IUD)] 1 implant VAGINAL [id number] 12/28/20 05/01/21 History Nadolol [Corgard] 20 mg PO DAILY 12/28/20 05/01/21 History Ondansetron Odt [Zofran Odt] 4 mg PO Q12HR PRN 12/28/20 05/01/21 History lamoTRIgine [LaMICtal] 100 mg PO BID 12/28/20 05/01/21 History traZODone HCL 250 mg PO HS 12/28/20 05/01/21 History Naproxen Sodium [Aleve] 220 mg PO DAILY PRN 04/12/21 04/25/21 History Allergies Allergy/AdvReac Type Severity Reaction Status Date / Time asenapine maleate Allergy Rash/Hives Verified 05/01/21 07:12 [From Saphris] cefaclor [From Ceclor] Allergy Rash/Hives Verified 05/01/21 07:12 Surgical - Exam Vital Signs Temp Pulse Resp BP Pulse Ox 96.7 F L 76 16 124/84 96 05/01/21 07:11 05/01/21 07:11 05/01/21 07:11 05/01/21 07:11 05/01/21 07:11
[2021-05-01 08:19] VITALS: BP 143/88; PULSE 67
--- NOTE | 2021-05-01 08:24 | P.PCN ---
Date of Procedure: 05/01/21 Description of Procedure: PREOPERATIVE DIAGNOSIS: Dysphagia. Gastroesophageal reflux disease. s/p sleeve gastrectomy. POSTOPERATIVE DIAGNOSIS: Dysphagia. Gastroesophageal reflux disease. s/p vertical sleeve gastrectomy. Gastric stenosis OPERATION: Esophagogastroduodenoscopy with balloon dilation, 20 mm SURGEON: Elis Shi MD ANESTHESIA: MAC. INDICATIONS: The patient is a 25-year-old female who presents with a history of dysphagia, sleeve gastrectomy including gastroesophageal reflux disease. Benefits and risks of the procedure were described. Informed consent was obtained. DESCRIPTION: The patient was brought into the endoscopy suite and laid in the left lateral decubitus position. After a timeout was confirmed, the procedure was initiated. An Olympus gastroscope was passed along the posterior oropharynx down to the distal esophagus where the squamocolumnar junction was remarkable for LA grade A erosive esophagitis. No large hiatal hernias were identified. The gastric pouch was entered. Gastric stricture was identified along her sleeve at the angularis incisura. a [employer] 20 mm balloon was insufflated along the gastric strictureThe mucosa was intact. No full-thickness injury was encountered. The GI tract was desufflated. The patient tolerated the procedure well. FINDINGS: Gastric stricture along angularis incisura LA grade A erosive esophagitis. Balloon dilation at angularis incisura, 20 mm. RECOMMENDATIONS: Upper endoscopy as needed Plan - Discharge Summary Discharge Rx Participant: No New Discharge Prescriptions: Continue Ergocalciferol [Vitamin D2 (DRISDOL)] 50,000 unit PO MO tiZANidine HCL [Zanaflex] 4 mg PO TID PRN PRN Reason: Muscle Spasm Pantoprazole [Protonix] 40 mg PO DAILY #14 tablet.dr ALPRAZolam [Xanax] 0.5 mg PO TID PRN PRN Reason: Anxiety Desvenlafaxine Succinate [Pristiq] 50 mg PO DAILY Dicyclomine [Bentyl] 10 mg PO TID PRN PRN Reason: IBS Nadolol [Corgard] 20 mg PO DAILY Ondansetron Odt [Zofran ODT] 4 mg PO Q12HR PRN PRN Reason: Nausea lamoTRIgine [LaMICtal] 100 mg PO BID Levonorgestrel [Kyleena (IUD)] 1 implant VAGINAL [id number] traZODone HCL 250 mg PO HS Discontinued Naproxen Sodium [Aleve] 220 mg PO DAILY PRN PRN Reason: Pain Discharge Medication List Ergocalciferol [Vitamin D2 (DRISDOL)] 50,000 unit PO MO 08/08/17 [History] tiZANidine HCL [Zanaflex] 4 mg PO TID PRN 02/18/19 [History] Pantoprazole [Protonix] 40 mg PO DAILY #14 tablet.dr 03/23/20 [Rx] ALPRAZolam [Xanax] 0.5 mg PO TID PRN 08/12/20 [History] Desvenlafaxine Succinate [Pristiq] 50 mg PO DAILY 12/28/20 [History] Dicyclomine [Bentyl] 10 mg PO TID PRN 12/28/20 [History] Levonorgestrel [Kyleena (IUD)] 1 implant VAGINAL [id number] 12/28/20 [History] Nadolol [Corgard] 20 mg PO DAILY 12/28/20 [History] Ondansetron Odt [Zofran ODT] 4 mg PO Q12HR PRN 12/28/20 [History] lamoTRIgine [LaMICtal] 100 mg PO BID 12/28/20 [History] traZODone HCL 250 mg PO HS 12/28/20 [History] [facility]ment[facility] [place] [facility] - [facility] Patient Instructions/Handouts: Esophageal Dilation (DC) Activity/Diet/Wound Care/Special Instructions: Diet as tolerated. Avoid Aleve, naproxen, ibuprofen and NSAIDs for 2 weeks. Discharge Disposition: HOME SELF-CARE
== END 2021-05-01 08:37 | disposition home or self-care (01) ==
LOC: ORWHC2ENDO 06:38
PROVIDERS: ATTEND Surgery Plastic and Reconstructive Surgery
DX: K95.89 Other complications of other bariatric procedure (principal); R13.10 Dysphagia, unspecified; K22.10 Ulcer of esophagus without bleeding; E66.01 Morbid (severe) obesity due to excess calories; Z68.42 Body mass index [BMI] 45.0-49.9, adult; K21.9 Gastro-esophageal reflux disease without esophagitis; F41.9 Anxiety disorder, unspecified; F32.A Depression, unspecified; I10 Essential (primary) hypertension; M19.90 Unspecified osteoarthritis, unspecified site; G25.81 Restless legs syndrome; G43.909 Migraine, unspecified, not intractable, without status migrainosus; R00.2 Palpitations; Z90.49 Acquired absence of other specified parts of digestive tract; Z98.890 Other specified postprocedural states; Z96.22 Myringotomy tube(s) status; Z82.49 Family history of ischemic heart disease and other diseases of the circulatory system; Z79.899 Other long term (current) drug therapy; Z88.1 Allergy status to other antibiotic agents; Z88.8 Allergy status to other drugs, medicaments and biological substances
CPT/HCPCS: 81025; 43245; J2001; J2704; C1726

== ENCOUNTER → 2021-05-10 | Outpatient (CLI) | payer OTHER ==
[2021-05-10 14:04] VITALS: BP 127/84; PULSE 71; RESP 18; TEMP 98.6; BMI 46.5
--- NOTE | 2021-05-10 14:16 | P.BASOAP ---
Subjective Progress Note Date: 05/10/21 DATE OF SERVICE: 05/10/2021 CHIEF COMPLAINT: Status post sleeve gastrectomy HISTORY OF PRESENT ILLNESS: Soni Mtz is a 25-year-old female status post sleeve gastrectomy 2011 at the age of [age] years old. She is 10 years out. She comes in with worsening epigastric abdominal pain. She had a recent upper scope without active ulcers. She reports worsening nausea. She is on multiple medications for mood and mental health. At height of 5 foot 7 inches, ideal body weight is 158 pounds. Highest lifetime weight of 335 pounds, BMI 52.6. Today she comes in 296 pounds from 307 pounds, 1 month ago. She has lost 11 pounds in 1 month. Lifetime weight loss of 39 pounds. Percent lifetime excess weight loss of 22 %. PAST MEDICAL HISTORY: 1. Morbid obesity due to excess calories, now 51.1 2. 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 3. Fibromyalgia. 4. Osteoarthritis of the bilateral knees. 5. Depression. 6. Hypertensive heart disease 7. Vitamin D deficiency 8. Anxiety disorder 9. Asthma 10. Irritable bowel syndrome 11. Iron deficiency anemia 12. Gastroesophageal reflux disease PAST SURGICAL HISTORY: 1. Sleeve gastrectomy, 2011 2. Cholecystectomy. 3. Upper endoscopy. MEDICATIONS: Home Medications Medication Instructions Recorded Confirmed Ergocalciferol [Vitamin D2 50,000 unit PO MO 08/08/17 05/10/21 (DRISDOL)] tiZANidine HCL [Zanaflex] 4 mg PO TID PRN 02/18/19 05/10/21 ALPRAZolam [Xanax] 0.5 mg PO TID PRN 08/12/20 05/10/21 Desvenlafaxine Succinate [Pristiq] 50 mg PO DAILY 12/28/20 05/10/21 Levonorgestrel [Kyleena (IUD)] 1 implant VAGINAL [id number] 12/28/20 05/10/21 Nadolol [Corgard] 20 mg PO DAILY 12/28/20 05/10/21 Ondansetron Odt [Zofran ODT] 4 mg PO Q12HR PRN 12/28/20 05/10/21 lamoTRIgine [LaMICtal] 100 mg PO BID 12/28/20 05/10/21 traZODone HCL 250 mg PO HS 12/28/20 05/10/21 Previous Rx's Medication Instructions Recorded Pantoprazole [Protonix] 40 mg PO DAILY #14 tablet. 03/23/20 Dicyclomine [Bentyl] 20 mg PO QID #40 tablet 05/10/21 ALLERGIES: SAPHRIS, CECLOR. Allergies Allergy/AdvReac Type Severity Reaction Status Date / Time asenapine maleate Allergy Rash/Hives Verified 06/23/21 18:00 [From Saphris] cefaclor [From Ceclor] Allergy Rash/Hives Verified 06/23/21 18:00 SOCIAL HISTORY: No active tobacco use. FAMILY HISTORY: Pertinent for morbid obesity. REVIEW OF SYSTEMS: CONSTITUTIONAL: At height of 5 foot 7 inches, ideal body weight is 158 pounds. Her highest lifetime weight of 330 pounds with BMI 51.8. PSYCH: She has multiple changes in anti-depressive medications. Has anxiety. Depressive disorder GENITOURINARY: Takes control pill. RESPIRATORY: Has trouble sleeping. Has obstructive sleep apnea. GASTROINTESTINAL: Has irritable bowel disease. Has gastroesophageal reflux disease and nausea MUSCULOSKELETAL: History of lower back pain. Has reports bilateral hip and knee pain. NEUROLOGICAL: History of fibromyalgia. No seizure disorder. CARDIOVASCULAR: History of hypertension. Past chest pain. HEENT: Denies any trouble with vision, hearing or nosebleeds. No difficulty swallowing. LYMPHATIC: The patient denies any lumps and bumps around the neck. ENDOCRINE: Denies any thyroid disorders. Denies any blood sugar glucose intolerance. HEMATOLOGIC: Denies any abnormal bleeding or bruising. PHYSICAL EXAM: VITAL SIGNS: 5 feet 7 inches; 296 pounds. BMI 46.5 Vital Signs Temp 98.6 F 05/10/21 13:59 Pulse 71 05/10/21 13:59 Resp 18 05/10/21 13:59 BP 127/84 05/10/21 13:59 Pulse Ox GENERAL: Well-developed female no acute distress. ABDOMEN: Soft. No peritonitis. No drainage from the abdomen. MUSCULOSKELETAL: No clubbing, cyanosis. CARDIOVASCULAR: Regular rate. 2+ radial pulses HEENT: No sclerae icterus. Extraocular movements grossly intact. Moist buccal mucosa. NECK: Supple without lymphadenopathy. CHEST: Unlabored respirations. Equal breath. NEURO: No focal or lateralizing signs. Cranial nerves II to XII intact. PSYCH: Appropriate affect. Alert and oriented to person, place and time. SKIN: Good skin turgor. Well perfused. LABS: Reviewed. Vitamin D is low. Hgb and iron is within normal limits. EGD FINDINGS: Gastric stricture along angularis incisura LA grade A erosive esophagitis. Balloon dilation at angularis incisura, 20 mm. ASSESSMENT: 1. Morbid obesity due to excess caloric intake 2. Body mass index 51.8 to 46.5 3. Gastroesophageal reflux disease. 4. Irritable bowel syndrome. 5. Status post sleeve gastrectomy. 6. 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 7. Dietary surveillance and counseling. 8. Vitamin D deficiency. 9. Secondary hyperparathyroidism. 10. Sleep disorder. 11. Weight gain following sleeve gastrectomy. 12. Adverse reactions from her medications with weight gain. 13. Iron deficiency anemia. 14. Diarrhea. 15. Zinc deficieny 16. Chronic diarrhea 17. Presbyesophagus 18. Chronic nausea 19. Complications from sleeve gastrectomy PLAN: 1. She has complications of her sleeve gastrectomy with anatomical functional blockage. Recommend esophogram for assessment. 2. She reports nausea which is chronic. Trial of increased bentyl to 20 mg QID prescribed. Objective - Vital Signs Vital signs: Vital Signs Temp 98.6 F 05/10/21 13:59 Pulse 71 05/10/21 13:59 Resp 18 05/10/21 13:59 BP 127/84 05/10/21 13:59 Pulse Ox Intake & Output 05/09/21 05/10/21 05/10/21 18:59 06:59 18:59 Weight 134.717 kg Assessment/Plan Plan: Date: 05/10/21 Initial Weight: 106.141 kg Initial BMI: 36.6 Current Weight: 134.717 kg Current BMI: 46.5 Type of Surgery: Total Volume in Band: Previous Volume: Volume Removed: Volume Added: Band Size:
== END ==
LOC: BARWHC3 13:20
PROVIDERS: ATTEND Surgery Plastic and Reconstructive Surgery
DX: E66.01 Morbid (severe) obesity due to excess calories (principal); K21.9 Gastro-esophageal reflux disease without esophagitis; K58.9 Irritable bowel syndrome, unspecified; K95.89 Other complications of other bariatric procedure; D50.9 Iron deficiency anemia, unspecified; E55.9 Vitamin D deficiency, unspecified; Z71.3 Dietary counseling and surveillance; E21.1 Secondary hyperparathyroidism, not elsewhere classified; R19.7 Diarrhea, unspecified; E60 Dietary zinc deficiency; K22.89 Other specified disease of esophagus; R11.0 Nausea; Z88.1 Allergy status to other antibiotic agents; Z88.8 Allergy status to other drugs, medicaments and biological substances; Z68.42 Body mass index [BMI] 45.0-49.9, adult
CPT/HCPCS: 99211

== ENCOUNTER → 2022-01-30 | Outpatient (CLI) | payer OTHER ==
--- NOTE | 2022-01-30 18:39 | MR ---
EXAMINATION TYPE: MR ankle LT wo con DATE OF EXAM: 01/30/2022 COMPARISON: 11/19/2018 HISTORY: 26-year-old female M25.572, Lt ankle pain, history of surgery TECHNIQUE: Multiplanar, multisequence images of the left ankle were obtained without IV contrast. FINDINGS: There is a vertically oriented cleft oriented in the sagittal plane that extends up from the posterio r subtalar joint within the lateral talus. Surrounding marrow edema. Associated low T1-weighted signa l in the subchondral bone. Refer to sagittal image 13 and coronal image 23. This will require further clinical correlation as to acute on chronic injury or prior postsurgical change. However, there is a djacent soft tissue edema. Edema extends along the ATFL where intact fibers are visualized. Intact fibers of the PTFL and CFL are also seen. The lateral peroneal tendons appear intact with scattered mild tenosynovial fluid. The medial flexor tendons appear intact. Mild edema involving the deep posterior deltoid ligament fibers without any discrete tear. The sprin g ligament complex appears grossly intact. Mild tenosynovial fluid along the extensor digitorum longus at the level of the hindfoot. Anterior ex tensor tendons and syndesmosis appear grossly intact. Lisfranc ligament appears intact. No soft tissue replacement within the sinus Tarsi. Achilles tendon and plantar fascia origin are intact. Tarsal tunnel is clear. There appears to be ne e postsurgical scarring along the posterolateral hindfoot extending into Kager's fat. [place] and tibiotalar joint appear intact. Moderate effusion within the posterior subtalar joint and posterior tibiotalar joint. There is a ganglion cyst measuring up to 2.2 x 1.6 x 1.4 cm along the plantar hindfoot that seems to extend from the inferior aspect of the talonavicular joint. IMPRESSION: 1. Further clinical correlation recommended as to the etiology of a vertical cleft oriented in the sa gittal plane that extends up from the posterior subtalar joint within the lateral talus. There is skip rounding marrow edema and associated low T1 weighted signal of the subchondral bone. There is also ad jacent soft tissue edema. Correlate for possible acute injury superimposed on a chronic ununited, inc omplete fracture vs. some type of postsurgical change. (Sagittal image 13 and coronal image 23). 2. Adjacent grade 1 ATFL sprain. 3. Posterior tibiotalar and subtalar joint effusions. 4. A 2.2 cm ganglion cyst along the plantar hindfoot that seems to extend from the inferior aspect of the talonavicular joint. 5. Post surgical scar along the lateral hindfoot extending into Kager's fat.
== END | disposition home or self-care (01) ==
LOC: RADMRIMAIN 13:07
PROVIDERS: ATTEND Podiatrist
DX: S93.402A Sprain of unspecified ligament of left ankle, initial encounter (principal); M25.572 Pain in left ankle and joints of left foot; M25.462 Effusion, left knee; M67.472 Ganglion, left ankle and foot

== ENCOUNTER 2022-02-09 12:23 | Emergency (ER) | payer OTHER ==
[2022-02-09 13:05] VITALS: TEMP 98.1
[2022-02-09] MEDS ORDERED: HYDROmorphone 0.5 MG/0.5 ML SYRINGE IVP STA (13:35)
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
--- NOTE | 2022-02-09 15:21 | XR ---
EXAMINATION TYPE: XR hand complete RT DATE OF EXAM: 02/09/2022 CLINICAL HISTORY: pain TECHNIQUE: Frontal, lateral and oblique images of the right hand are obtained. COMPARISON: None. FINDINGS: There is no acute fracture/dislocation evident. The joint spaces appear within normal limi ts. The overlying soft tissue appears unremarkable. IMPRESSION: There is no acute fracture or dislocation ICD 10 NO FRACTURE, INITIAL EVALUATION
--- NOTE | 2022-02-09 15:22 | XR ---
EXAMINATION TYPE: XR knee complete bilateral DATE OF EXAM: 02/09/2022 CLINICAL HISTORY: pain TECHNIQUE: Three views of the right knee are obtained. COMPARISON: None. FINDINGS: There is no acute fracture/dislocation. The tri-compartment joint spaces appear within no rmal limits. The overlying soft tissue appears unremarkable. IMPRESSION: There is no acute fracture or dislocation.ICD 10 NO FRACTURE, INITIAL EVALUATION EXAMINATION TYPE: XR knee complete bilateral DATE OF EXAM: 02/09/2022 CLINICAL HISTORY: pain TECHNIQUE: Three views of the left knee are obtained. COMPARISON: None. FINDINGS: There is no acute fracture/dislocation. The tri-compartment joint spaces appear within no rmal limits. The overlying soft tissue appears unremarkable. IMPRESSION: There is no acute fracture or dislocation ICD 10 NO FRACTURE, INITIAL EVALUATION
[2022-02-09] MEDS ORDERED: KETOROLAC 15 MG/ML 1 ML VIAL IVP STA (15:25)
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
[2022-02-09 16:20] VITALS: BP 128/85; PULSE 61; RESP 16
== END 2022-02-09 16:26 | disposition home or self-care (01) ==
LOC: EC 12:23
DX: S10.93XA Contusion of unspecified part of neck, initial encounter (principal); K21.9 Gastro-esophageal reflux disease without esophagitis; I10 Essential (primary) hypertension; M19.90 Unspecified osteoarthritis, unspecified site; F41.9 Anxiety disorder, unspecified; F32.A Depression, unspecified; Z79.899 Other long term (current) drug therapy; Z79.83 Long term (current) use of bisphosphonates; Z88.6 Allergy status to analgesic agent; Z88.1 Allergy status to other antibiotic agents; V49.9XXA Car occupant (driver) (passenger) injured in unspecified traffic accident, initial encounter; V89.2XXA Person injured in unspecified motor-vehicle accident, traffic, initial encounter; Y92.411 Interstate highway as the place of occurrence of the external cause
CPT/HCPCS: 93005; 73562; 73130; 72125; 70450; 71260; 74177; 99285; 96374; 96375; J1885; J1170; Q9967

== ENCOUNTER → 2022-11-14 | Outpatient (CLI) | payer BC, OTHER ==
[2022-11-14 10:29] VITALS: BP 121/89; PULSE 84; TEMP 98.5; BMI 48.0
--- NOTE | 2022-11-15 21:59 | P.PN ---
Subjective Progress Note Date: 11/14/22 Patient reports nausea vomiting diarrhea. Additionally, she reports lower abdominal pain. She went to a local ER at [facility] due to severity of symptoms. She reports CT of the abdomen and pelvis was obtained. Do recommend follow up as needed Objective - Vital Signs Vital signs: Vital Signs Temp 98.5 F 11/14/22 10:16 Pulse 84 11/14/22 10:16 Resp BP 121/89 11/14/22 10:16 Pulse Ox FiO2
== END ==
LOC: BARWHC3 10:00
PROVIDERS: ATTEND Surgery Plastic and Reconstructive Surgery
DX: Z53.9 Procedure and treatment not carried out, unspecified reason (principal)
CPT/HCPCS: 99211

== ENCOUNTER → 2023-01-16 | Outpatient (CLI) | payer OTHER ==
[2023-01-16 15:12] VITALS: BP 109/78; PULSE 60; RESP 13; TEMP 98.9; BMI 47.7
--- NOTE | 2023-01-16 15:34 | P.BASOAP ---
Subjective Progress Note Date: 01/16/23 DATE OF SERVICE: 01/16/2023 CHIEF COMPLAINT: Status post sleeve gastrectomy HISTORY OF PRESENT ILLNESS: Soni Mtz is a 27-year-old female status post sleeve gastrectomy 2011 at the age of [age] years old. She is 11 years out. She says had uncontrolled gastroesophageal reflux disease including epigastric abdominal pain as a result of concretions from sleeve gastrectomy. She has moderate weight regain of overall 100+ pounds since her weight loss procedure. She reports chronic diarrhea. At this time, she is evaluating for conversion from sleeve to gastric bypass. At height of 5 foot 7 inches, ideal body weight is 158 pounds. Highest lifetime weight of 335 pounds, BMI 52.6. Today she comes in 305 pounds from 296 pounds, 1 year ago. She has gained 9 pounds in 1 year. Lifetime weight loss of 30 pounds. Percent lifetime excess weight loss of 17 %. PAST MEDICAL HISTORY: 1. Morbid obesity due to excess calories 52.6 2. 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 3. Fibromyalgia. 4. Osteoarthritis of the bilateral knees. 5. Depression. 6. Hypertensive heart disease 7. Vitamin D deficiency 8. Anxiety disorder 9. Asthma 10. Irritable bowel syndrome 11. Iron deficiency anemia 12. Gastroesophageal reflux disease PAST SURGICAL HISTORY: 1. Sleeve gastrectomy, 2011 2. Cholecystectomy. 3. Upper endoscopy. MEDICATIONS: Home Medications Medication Instructions Recorded Confirmed tiZANidine HCL [Zanaflex] 4 mg PO TID PRN 02/18/19 01/16/23 ALPRAZolam [Xanax] 0.5 mg PO TID PRN 08/12/20 01/16/23 Desvenlafaxine Succinate [Pristiq] 100 mg PO DAILY 12/28/20 01/16/23 Ondansetron Odt [Zofran ODT] 4 mg PO Q12HR PRN 12/28/20 01/16/23 lamoTRIgine [LaMICtal] 100 mg PO BID 12/28/20 01/16/23 nadoloL [Corgard] 20 mg PO DAILY 12/28/20 01/16/23 traZODone HCL 300 mg PO HS 12/28/20 01/16/23 Acetaminophen-Codeine 300-30mg 1 tab PO Q6H PRN 11/14/22 01/16/23 [Tylenol w/codeine #3] Previous Rx's Medication Instructions Recorded Ibuprofen [Motrin] 600 mg PO Q8HR PRN #20 tab 02/09/22 ALLERGIES: SAPHRIS, CECLOR. Allergies Allergy/AdvReac Type Severity Reaction Status Date / Time asenapine maleate Allergy Rash/Hives Verified 01/16/23 14:54 [From Saphris] cefaclor [From Ceclor] Allergy Rash/Hives Verified 01/16/23 14:54 SOCIAL HISTORY: No active tobacco use. FAMILY HISTORY: Pertinent for morbid obesity. REVIEW OF SYSTEMS: CONSTITUTIONAL: At height of 5 foot 7 inches, ideal body weight is 158 pounds. Her highest lifetime weight of 330 pounds with BMI 51.8. PSYCH: She has multiple changes in anti-depressive medications. Has anxiety. Depressive disorder GENITOURINARY: Takes control pill. RESPIRATORY: Has trouble sleeping. Has obstructive sleep apnea. GASTROINTESTINAL: Has irritable bowel disease. Has gastroesophageal reflux disease and nausea MUSCULOSKELETAL: History of lower back pain. Has reports bilateral hip and knee pain. NEUROLOGICAL: History of fibromyalgia. No seizure disorder. CARDIOVASCULAR: History of hypertension. Past chest pain. HEENT: Denies any trouble with vision, hearing or nosebleeds. No difficulty swallowing. LYMPHATIC: The patient denies any lumps and bumps around the neck. ENDOCRINE: Denies any thyroid disorders. Denies any blood sugar glucose intolerance. HEMATOLOGIC: Denies any abnormal bleeding or bruising. PHYSICAL EXAM: VITAL SIGNS: 5 feet 7 inches; 305 pounds. BMI 47.8 Vital Signs Temp 98.9 F 01/16/23 14:53 Pulse 60 01/16/23 14:53 Resp 13 01/16/23 14:53 BP 109/78 01/16/23 14:53 Pulse Ox FiO2 GENERAL: Well-developed female no acute distress. ABDOMEN: Soft. No peritonitis. No drainage from the abdomen. MUSCULOSKELETAL: No clubbing, cyanosis. CARDIOVASCULAR: Regular rate. 2+ radial pulses HEENT: No sclerae icterus. Extraocular movements grossly intact. Moist buccal mucosa. NECK: Supple without lymphadenopathy. CHEST: Unlabored respirations. Equal breath. NEURO: No focal or lateralizing signs. Cranial nerves II to XII intact. PSYCH: Appropriate affect. Alert and oriented to person, place and time. SKIN: Good skin turgor. Well perfused. STUDIES: Barium swallow 2020 demonstrates gastric diverticulum versus hernia at the hiatus. This is my independent interpretation. EGD FINDINGS 2019: Gastric stricture along angularis incisura LA grade A erosive esophagitis. Balloon dilation at angularis incisura, 20 mm. COLON FINDINGS 2019: Aronchick preparation quality scale 2 (1-5) No internal hemorrhoids No diverticulosis No external prolapsed hemorrhoids. No arteriovenous malformations. No adenomatous polyps. Final Pathologic Diagnosis 2019 A. GASTRIC ANTRUM, BIOPSY: Moderate chronic gastritis. Helicobacter pylori organisms are not identified on routine H+E stained sections. B. RANDOM COLON BIOPSIES: Hyperplastic polyp. Adjacent benign colonic mucosa without significant histopathologic changes. ASSESSMENT: 1. Morbid obesity due to excess caloric intake 2. Body mass index 52.6 to 47.8 3. Gastroesophageal reflux disease. 4. Irritable bowel syndrome. 5. Status post sleeve gastrectomy. 6. 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 7. Dietary surveillance and counseling. 8. Vitamin D deficiency. 9. Secondary hyperparathyroidism. 10. Sleep disorder. 11. Weight gain following sleeve gastrectomy. 12. Adverse reactions from her medications with weight gain. 13. Iron deficiency anemia. 14. Diarrhea. 15. Zinc deficieny 16. Chronic diarrhea 17. Presbyesophagus 18. Chronic nausea 19. 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 20. Fibromyalgia. 21. Osteoarthritis of the bilateral knees. 22. Depression. 23. Hypertensive heart disease 24. Anxiety disorder 25. Asthma 26. Gastric stricture PLAN: 1. Despite multiple treatments including balloon dilation of gastric stricture, she still has uncontrolled gastric esophageal reflux disease. 2. Due to anatomical complications from sleeve gastrectomy, do recommend ga stric bypass conversion to address reflux disease including rate regain. 3. She has chronic diarrhea for which irritable bowel disease is at risk following gastric bypass. 4. Trial of Bentyl with minimal response of diarrhea reviewed. 5. Overall, patient should benefit from conversion from sleeve to gastric bypass due to complications from sleeve gastrectomy. Objective - Vital Signs Vital signs: Vital Signs Temp 98.9 F 01/16/23 14:53 Pulse 60 01/16/23 14:53 Resp 13 01/16/23 14:53 BP 109/78 01/16/23 14:53 Pulse Ox FiO2 Intake & Output 01/15/23 01/16/23 01/16/23 18:59 06:59 18:59 Weight 138.3 kg Assessment/Plan Plan: Date: 01/16/23 Initial Weight: 106.141 kg Initial BMI: 36.6 Current Weight: 138.3 kg Current BMI: 47.7 Type of Surgery: Total Volume in Band: Previous Volume: Volume Removed: Volume Added: Band Size:
== END ==
LOC: BARWHC3 14:36
PROVIDERS: ATTEND Surgery Plastic and Reconstructive Surgery
DX: E66.01 Morbid (severe) obesity due to excess calories (principal); E55.9 Vitamin D deficiency, unspecified; F32.A Depression, unspecified; I11.9 Hypertensive heart disease without heart failure; F41.9 Anxiety disorder, unspecified; M79.7 Fibromyalgia; D50.9 Iron deficiency anemia, unspecified; G47.30 Sleep apnea, unspecified; R11.0 Nausea; K22.89 Other specified disease of esophagus; M17.0 Bilateral primary osteoarthritis of knee; M51.9 Unspecified thoracic, thoracolumbar and lumbosacral intervertebral disc disorder; E60 Dietary zinc deficiency; K21.00 Gastro-esophageal reflux disease with esophagitis, without bleeding; K58.0 Irritable bowel syndrome with diarrhea; E21.1 Secondary hyperparathyroidism, not elsewhere classified; T50.995A Adverse effect of other drugs, medicaments and biological substances, initial encounter; J45.909 Unspecified asthma, uncomplicated; K31.2 Hourglass stricture and stenosis of stomach; K95.89 Other complications of other bariatric procedure; Z98.84 Bariatric surgery status; Z71.3 Dietary counseling and surveillance; Z68.42 Body mass index [BMI] 45.0-49.9, adult; Z88.8 Allergy status to other drugs, medicaments and biological substances
CPT/HCPCS: 99211

== ENCOUNTER → 2023-04-17 | Outpatient (CLI) | payer OTHER ==
[2023-04-17 16:56] VITALS: BP 119/79; PULSE 80; TEMP 98; BMI 48.9
--- NOTE | 2023-04-17 16:56 | P.BASOAP ---
Subjective Progress Note Date: 04/17/23 DATE OF SERVICE: 04/17/23 CHIEF COMPLAINT: Status post sleeve gastrectomy HISTORY OF PRESENT ILLNESS: Soni Mtz is a 27-year-old female status post sleeve gastrectomy 2011 at the age of [age] years old. She is 12 years postop. Initially lost over 100 pounds and now has a grain 125 to 150% of her weight. She comes in with troubles with her sleeve gastrectomy including severe intractable gastroesophageal reflux disease. She has structural abnormality of her sleeve. She presents for options for conversion from a sleeve gastrectomy to gastric bypass. At height of 5 foot 7 inches, ideal body weight is 158 pounds. Highest lifetime weight of 335 pounds, BMI 52.6. Today she comes in 312 pounds from 296 pounds, 2 years ago. She has gained 15 pounds in 2 years. Lifetime weight loss of 23 pounds. Percent lifetime excess weight loss of 13 %. PAST MEDICAL HISTORY: 1. Morbid obesity due to excess calories, now 51.1 2. 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 3. Fibromyalgia. 4. Osteoarthritis of the bilateral knees. 5. Depression. 6. Hypertensive heart disease 7. Vitamin D deficiency 8. Anxiety disorder 9. Asthma 10. Irritable bowel syndrome 11. Iron deficiency anemia 12. Gastroesophageal reflux disease PAST SURGICAL HISTORY: 1. Sleeve gastrectomy, 2011 2. Cholecystectomy. 3. Upper endoscopy. MEDICATIONS: Home Medications Medication Instructions Recorded Confirmed tiZANidine HCL [Zanaflex] 4 mg PO TID PRN 02/18/19 04/26/23 ALPRAZolam [Xanax] 0.5 mg PO TID PRN 08/12/20 04/26/23 Desvenlafaxine Succinate [Pristiq] 100 mg PO DAILY 12/28/20 04/26/23 Ondansetron Odt [Zofran ODT] 4 mg PO Q12HR PRN 12/28/20 04/26/23 lamoTRIgine [LaMICtal] 100 mg PO BID 12/28/20 04/26/23 nadoloL [Corgard] 20 mg PO DAILY 12/28/20 04/26/23 traZODone HCL 300 mg PO HS 12/28/20 04/26/23 Acetaminophen-Codeine 300-30mg 1 tab PO Q6H PRN 11/14/22 04/26/23 [Tylenol w/codeine #3] Gabapentin 600 mg PO BID 04/17/23 04/26/23 Pantoprazole Sodium 40 mg PO DAILY 04/17/23 04/26/23 Ergocalciferol [Vitamin D2 (1250 50,000 unit PO WEEKLY 04/23/23 04/26/23 Mcg = 35311 Iu)] Previous Rx's Medication Instructions Recorded Ibuprofen [Motrin] 600 mg PO Q8HR PRN #20 tab 02/09/22 ALLERGIES: SAPHRIS, CECLOR. Allergies Allergy/AdvReac Type Severity Reaction Status Date / Time asenapine maleate Allergy Rash/Hives Verified 01/16/23 14:54 [From Saphris] cefaclor [From Ceclor] Allergy Rash/Hives Verified 01/16/23 14:54 SOCIAL HISTORY: No active tobacco use. FAMILY HISTORY: Pertinent for morbid obesity. REVIEW OF SYSTEMS: CONSTITUTIONAL: At height of 5 foot 7 inches, ideal body weight is 158 pounds. Highest lifetime weight of 335 pounds, BMI 52.6. Today she comes in 312 pounds from 296 pounds, 2 years ago. She has gained 15 pounds in 2 years. Lifetime weight loss of 23 pounds. Percent lifetime excess weight loss of 13 %. PSYCH: She has multiple changes in anti-depressive medications. Has anxiety. Depressive disorder GENITOURINARY: Takes control pill. RESPIRATORY: Has trouble sleeping. Has obstructive sleep apnea. GASTROINTESTINAL: Has irritable bowel disease. Has gastroesophageal reflux disease and nausea MUSCULOSKELETAL: History of lower back pain. Has reports bilateral hip and knee pain. NEUROLOGICAL: History of fibromyalgia. No seizure disorder. CARDIOVASCULAR: History of hypertension. Past chest pain. HEENT: Denies any trouble with vision, hearing or nosebleeds. No difficulty swallowing. LYMPHATIC: The patient denies any lumps and bumps around the neck. ENDOCRINE: Denies any thyroid disorders. Denies any blood sugar glucose intolerance. HEMATOLOGIC: Denies any abnormal bleeding or bruising. PHYSICAL EXAM: VITAL SIGNS: 5 feet 7 inches; 312 pounds. BMI 48.9 Vital Signs Temp 98 F 04/17/23 16:39 Pulse 80 04/17/23 16:39 Resp BP 119/79 04/17/23 16:39 Pulse Ox FiO2 GENERAL: Well-developed female no acute distress. ABDOMEN: Soft. No peritonitis. No drainage from the abdomen. MUSCULOSKELETAL: No clubbing, cyanosis. CARDIOVASCULAR: Regular rate. 2+ radial pulses HEENT: No sclerae icterus. Extraocular movements grossly intact. Moist buccal mucosa. NECK: Supple without lymphadenopathy. CHEST: Unlabored respirations. Equal breath. NEURO: No focal or lateralizing signs. Cranial nerves II to XII intact. PSYCH: Appropriate affect. Alert and oriented to person, place and time. SKIN: Good skin turgor. Well perfused. ASSESSMENT: 1. Morbid obesity due to excess caloric intake 2. Body mass index 52.6 to 48.9 3. Gastroesophageal reflux disease. 4. Irritable bowel syndrome. 5. Status post sleeve gastrectomy. 6. 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 7. Dietary surveillance and counseling. 8. Vitamin D deficiency. 9. Secondary hyperparathyroidism. 10. Sleep disorder. 11. Weight gain following sleeve gastrectomy. 12. Adverse reactions from her medications with weight gain. 13. Iron deficiency anemia. 14. Diarrhea. 15. Zinc deficieny 16. Chronic diarrhea 17. Presbyesophagus 18. Chronic nausea 19. Complications from sleeve gastrectomy PLAN: 1. Recommend EKG for cardiac risk assessment 2. Recommend full bariatric labs and correction of micro macro nutrition deficiencies 3. Inpatient hospitalization described 4. She is very high risk for complications particularly leaks for conversion to sleeve to gastric bypass Objective - Vital Signs Vital signs: Vital Signs Temp 98 F 04/17/23 16:39 Pulse 80 04/17/23 16:39 Resp BP 119/79 04/17/23 16:39 Pulse Ox FiO2 Intake & Output 04/16/23 04/17/23 04/17/23 18:59 06:59 18:59 Weight 141.521 kg Assessment/Plan Plan: Date: 04/17/23 Initial Weight: 106.141 kg Initial BMI: 36.6 Current Weight: 141.521 kg Current BMI: 48.9 Type of Surgery: Total Volume in Band: Previous Volume: Volume Removed: Volume Added: Band Size:
== END ==
LOC: BARWHC3 15:47
PROVIDERS: ATTEND Surgery Plastic and Reconstructive Surgery
DX: E66.01 Morbid (severe) obesity due to excess calories (principal); K21.9 Gastro-esophageal reflux disease without esophagitis; K58.9 Irritable bowel syndrome, unspecified; K95.89 Other complications of other bariatric procedure; E55.9 Vitamin D deficiency, unspecified; E21.1 Secondary hyperparathyroidism, not elsewhere classified; G47.9 Sleep disorder, unspecified; T50.995A Adverse effect of other drugs, medicaments and biological substances, initial encounter; D50.9 Iron deficiency anemia, unspecified; E60 Dietary zinc deficiency; K22.89 Other specified disease of esophagus; R11.0 Nausea; I11.9 Hypertensive heart disease without heart failure; J45.909 Unspecified asthma, uncomplicated; M47.816 Spondylosis without myelopathy or radiculopathy, lumbar region; M17.0 Bilateral primary osteoarthritis of knee; F32.A Depression, unspecified; F41.9 Anxiety disorder, unspecified; Z87.39 Personal history of other diseases of the musculoskeletal system and connective tissue; Z98.84 Bariatric surgery status; Z71.3 Dietary counseling and surveillance; Z68.42 Body mass index [BMI] 45.0-49.9, adult; Z88.8 Allergy status to other drugs, medicaments and biological substances; Z79.899 Other long term (current) drug therapy
CPT/HCPCS: 99211

== ENCOUNTER → 2023-04-22 | Outpatient (CLI) | payer OTHER ==
[2023-04-22 12:20] LABS: INR 0.9 (<1.2); Partial Thromboplastin Time 25.3 sec (22.0-30.0); Prothrombin Time 10.3 sec (10.0-12.5)
[2023-04-22 15:53] LABS: HCT 40.2 % (37.2-46.3); HGB 12.8 g/dL (12.0-15.0); MCH 29.1 pg (27.0-32.0); MCHC 31.8 g/dL (32.0-37.0); MCV 91.4 FL (80.0-97.0); Mean Platelet Volume 9.7 FL (9.5-12.2); NRBC Per 100 WBC 0 X 10*3/uL (0.00-0.01); Platelet Count 307 X 10*3/uL (140-440); RDW 12.3 % (11.5-14.5); WBC 6.85 X 10*3/uL (4.50-10.00)
[2023-04-22 20:43] LABS: Prealbumin 24.2 mg/dL (18.0-42.0)
[2023-04-22 21:07] LABS: % Iron Saturation 21.48 (12.00-45.00); BUN/Creat Ratio 12.38 Ratio (12.00-20.00); Blood Urea Nitrogen 9.9 mg/dL (9.0-27.0); Carbon Dioxide 25.9 mmol/L (21.6-31.8); Chloride 103 mmol/L (96-109); Chol/HDL Ratio 2.28 Ratio; Glucose 90 mg/dL (70-110); Iron 90 UG/DL (50-170); LDL Cholesterol,Calculated 65.2 mg/dL (0.0-131.0); Phosphorus 3.2 mg/dL (2.4-5.1); Potassium 4.3 mmol/L (3.5-5.5); Sodium 139 mmol/L (135-145); Total Iron Binding Capacity 419 UG/DL (228-460); VLDL Calculation 14.62 mg/dL (5.00-40.00)
[2023-04-22 21:08] LABS: ALT 12 U/L (8-44); AST 14 U/L (13-35); Albumin 4.2 g/dL (3.8-4.9); Albumin/Globulin Ratio 1.91 Ratio (1.60-3.17); Alkaline Phosphatase 84 U/L (41-126); Calcium 9.3 mg/dL (8.7-10.3); Ferritin 39.8 ng/mL (10.0-291.0); Globulin 2.2 g/dL (1.6-3.3); Total Bilirubin 0.4 mg/dL (0.3-1.2); Total Protein 6.4 g/dL (6.2-8.2)
[2023-04-22 21:17] LABS: Vitamin B12 <150.0 pg/mL (200.0-944.0)
[2023-04-23 12:33] LABS: Zinc, Serum 75 ug/dL (60-130)
[2023-04-24 06:04] LABS: Vit B1(Thiamine) 55 ug/L (38-122)
== END | disposition home or self-care (01) ==
LOC: LABWHC1 10:14
PROVIDERS: ATTEND Surgery Plastic and Reconstructive Surgery
DX: E89.1 Postprocedural hypoinsulinemia (principal); E66.01 Morbid (severe) obesity due to excess calories; D50.8 Other iron deficiency anemias; K91.2 Postsurgical malabsorption, not elsewhere classified; E44.0 Moderate protein-calorie malnutrition; E44.1 Mild protein-calorie malnutrition; E45 Retarded development following protein-calorie malnutrition; E55.9 Vitamin D deficiency, unspecified; K74.1 Hepatic sclerosis; N19 Unspecified kidney failure; T56.894A Toxic effect of other metals, undetermined, initial encounter
CPT/HCPCS: 36415; 80053; 80061; 82306; 82525; 82607; 82728; 82746; 83036; 83540; 83550; 83735; 83970; 84100; 84134; 84255; 84425; 84443; 84590; 84630; 85027; 85610; 85730; 93005

== ENCOUNTER → 2023-04-26 | Outpatient (CLI) | payer OTHER ==
[~2023-04-26] MED LIST changes: +CYANOCOBALAMIN 1,000 MCG/ML 1 ML VIAL IM NR; -LACTATED RINGERS 1,000 ML IV SCH; -LIDOCAINE 1% (10MG/ML) FOR IV START INTRADERMA PRN
[2023-04-26 12:32] VITALS: BP 115/47; PULSE 72; RESP 15; TEMP 97.9
== END ==
LOC: PROCWHC3 11:42
PROVIDERS: ATTEND Surgery Plastic and Reconstructive Surgery
DX: D51.9 Vitamin B12 deficiency anemia, unspecified (principal)
CPT/HCPCS: 96372; J3420

== ENCOUNTER → 2023-05-06 | Outpatient (CLI) | payer OTHER ==
[2023-05-07 10:45] VITALS: BMI 49.6
== END ==
LOC: BARWHC3 12:59
PROVIDERS: ATTEND Surgery Plastic and Reconstructive Surgery
DX: E66.01 Morbid (severe) obesity due to excess calories (principal); Z71.3 Dietary counseling and surveillance; Z68.42 Body mass index [BMI] 45.0-49.9, adult; Z88.8 Allergy status to other drugs, medicaments and biological substances
CPT/HCPCS: 97804; G0463; 99211

== ENCOUNTER → 2023-06-05 | Outpatient (CLI) | payer OTHER ==
[2023-06-05 15:55] VITALS: BP 117/86; PULSE 71; TEMP 98.2; BMI 49.0
== END ==
LOC: BARWHC3 15:02
PROVIDERS: ATTEND Surgery Plastic and Reconstructive Surgery
DX: Z53.9 Procedure and treatment not carried out, unspecified reason (principal)
CPT/HCPCS: 99211

== ENCOUNTER 2023-06-18 10:55 | Emergency (ER) | payer OTHER ==
[2023-06-18 11:11] VITALS: TEMP 98.5
[2023-06-18] MEDS: ACETAMINOPHEN TAB 325 MG TAB PO STA (11:29)
[2023-06-18] MEDS: SODIUM CHLORIDE 0.9% 1,000 ML IV STA ×2 (11:30→13:09)
[2023-06-18 11:31] LABS: Basophils % (A) 0 %; Eosinophils # (A) 0.2 k/uL (0-0.7); Eosinophils % (A) 2 %; HCT 39.8 % (34.0-46.0); HGB 13.2 gm/dL (11.4-16.0); Lymphocytes # (A) 1.6 k/uL (1.0-4.8); Lymphocytes % (A) 20 %; MCH 29.5 pg (25.0-35.0); MCHC 33.1 g/dL (31.0-37.0); MCV 89.3 fL (80.0-100.0); Mean Platelet Volume 8.2; Monocytes # (A) 0.4 k/uL (0-1.0); Monocytes % (A) 6 %; Neutrophils # (A) 5.3 k/uL (1.3-7.7); Neutrophils % (A) 70 %; Platelet Count 260 k/uL (150-450); RBC 4.46 m/uL (3.80-5.40); RDW 12.6 % (11.5-15.5); WBC 7.6 k/uL (3.8-10.6)
[2023-06-18] MEDS: ONDANSETRON 4 MG/2 ML VIAL IVP STA (11:31)
[2023-06-18 11:46] LABS: ALT 88 U/L (4-34); AST 64 U/L (14-36); African American GFR (CKD) >90 (>60 ml/min/1.73 sqM); Albumin 3.9 g/dL (3.5-5.0); Alkaline Phosphatase 75 U/L (38-126); Anion Gap 11 mmol/L; Blood Urea Nitrogen 8 mg/dL (7-17); Calcium 8.7 mg/dL (8.4-10.2); Carbon Dioxide 22 mmol/L (22-30); Chloride 104 mmol/L (98-107); Glucose 92 mg/dL (74-99); Non-African American GFR(CKD) >90 (>60 ml/min/1.73 sqM); Potassium 3.7 mmol/L (3.5-5.1); Sodium 137 mmol/L (137-145); Total Bilirubin 0.6 mg/dL (0.2-1.3); Total Protein 6.4 g/dL (6.3-8.2)
--- NOTE | 2023-06-18 12:12 | US ---
EXAMINATION TYPE: Ultrasound OB <= 14 week fetus DATE OF EXAM: 06/18/2023 11:52 AM COMPARISON: NONE CLINICAL INDICATION: Female, 27 years old with history of right sided abdominal pain; right sided abd ominal pain EXAM PERFORMED: Transabdominal (TA) EXAM MEASUREMENTS: GESTATIONAL AGE / DATING Physician Established: Not yet established Dates by LMP: (7 weeks/5 days) EDC: 01/30/24 Dates by First Scan: No previous this is first scan Dates by Current Scan for: (7 weeks/3 days) EDC: 02/01/24 MATERNAL ANATOMY Uterus: 8.0 x 5.5 x 6.6cm Right Ovary: 2.9 x 1.8 x 1.9cm Left Ovary: 2.3 x 1.6 x 1.2cm Post CDS / Adnexa: wnl Presence of free fluid: no Presence of corpus luteal cyst: yes, hypoechoic area right ovary = 1.8 x 1.9 x 2.2cm Presence of subchorionic bleed: no GESTATION / SURVEY CRL: 1.2cm (7 weeks/3 days) Yolk Sac (normal less than 6mm): 0.3cm Heart Rate: 152 bpm Rhythm: Normal IUP: Viable IUP Date of LMP: 04/25/23 Beta HcG (if available): Not available at this time IMPRESSION: 1. Single live intrauterine with estimated gestational age of 7 weeks 5 days by LMP. Curren t ultrasound biometry is concordant at 7 weeks 3 days. 2. A 2.2 cm corpus luteum of the right ovary. 3. Complete survey recommended at 18-20 weeks.
[2023-06-18 12:46] LABS: Appearance,Urine Cloudy (Clear); Bacteria,Urine Rare /hpf; Bilirubin,Urine Negative (Negative); Blood,Urine Negative (Negative); Color,Urine Yellow; Glucose,Urine (UA) Negative (Negative); Ketones,Urine Negative (Negative); Leukocyte Esterase,Urine Trace (Negative); Mucus,Urine Moderate /hpf; Nitrite,Urine Negative (Negative); Protein,Urine Trace (Negative); Specific Gravity,Urine 1.029 (1.001-1.035); Squamous Epithelial Cell,Urine 6 /hpf (0-4); WBC,Urine 2 /hpf (0-5)
--- NOTE | 2023-06-18 13:13 | ED ---
Abdominal Pain HPI - General Chief Complaint: Abdominal Pain Stated Complaint: ABD Pain Time Seen by Provider: 06/18/23 13:11 Source: patient, RN notes reviewed Mode of arrival: EMS Limitations: no limitations - History of Present Illness Initial Comments: Patient is a 27-year-old female presented to ER with chief complaint of right- sided abdominal pain. Patient reports she is about 7 weeks . She is scheduled to follow-up with Dr. Gonzalez tomorrow for ultrasound. She states this morning she woke up with extreme right flank and right lower abdominal pain. She states she tried to go to the bathroom but was unable to urinate. She states she does feel nauseous. Denies any fevers, chills, night sweats, chest pain, shortness of breath, constipation/diarrhea. She denies any history of kidney stones. Denies any vaginal discharge or bleeding. - Related Data Home Medications Medication Instructions Recorded Confirmed tiZANidine HCL [Zanaflex] 4 mg PO TID PRN 02/18/19 06/05/23 ALPRAZolam [Xanax] 0.5 mg PO TID PRN 08/12/20 06/05/23 Desvenlafaxine Succinate [Pristiq] 100 mg PO DAILY 12/28/20 06/05/23 Ondansetron Odt [Zofran ODT] 4 mg PO Q12HR PRN 12/28/20 06/05/23 lamoTRIgine [LaMICtal] 100 mg PO BID 12/28/20 06/05/23 nadoloL [Corgard] 20 mg PO DAILY 12/28/20 06/05/23 traZODone HCL 300 mg PO HS 12/28/20 06/05/23 Acetaminophen-Codeine 300-30mg 1 tab PO Q6H PRN 11/14/22 06/05/23 [Tylenol w/codeine #3] Gabapentin 600 mg PO BID 04/17/23 06/05/23 Pantoprazole Sodium 40 mg PO DAILY 04/17/23 06/05/23 Ergocalciferol [Vitamin D2 (1250 50,000 unit PO WEEKLY 04/23/23 06/05/23 Mcg = 23426 Iu)] Previous Rx's Medication Instructions Recorded Ibuprofen [Motrin] 600 mg PO Q8HR PRN #20 tab 11/04/22 Allergies Allergy/AdvReac Type Severity Reaction Status Date / Time asenapine maleate Allergy Rash/Hives Verified 06/18/23 11:02 [From Saphris] cefaclor [From Ceclor] Allergy Rash/Hives Verified 06/18/23 11:02 Review of Systems ROS Statement: Those systems with pertinent positive or pertinent negative responses have been documented in the HPI. ROS Other: All systems not noted in ROS Statement are negative. Past Medical History Past Medical History: Fibromyalgia, GERD/Reflux, Hypertension, Osteoarthritis (OA) Additional Past Medical History / Comment(s): OCCASIONAL RESTLESS LEGS, MIGRAINES, STATES IRREGULAR HEART BEAT, HX LOW IRON WITH IRON TRANSFUSIONS (FEB 2019). Recently having issues with fast heart rate and palpitations. History of Any Multi-Drug Resistant Organisms: None Reported Past Surgical History: Adenoidectomy, Appendectomy, Bariatric Surgery, Cholecystectomy, Ear Surgery, Orthopedic Surgery, Tonsillectomy Additional Past Surgical History / Comment(s): Gastric Sleeve, multiple bilateral ear tubes, back injections, left foot surgery. Past Anesthesia/Blood Transfusion Reactions: No Reported Reaction Past Psychological History: Anxiety, Depression Smoking Status: Never smoker Past Alcohol Use History: None Reported Past Drug Use History: None Reported - Past Family History Mother Family Medical History: No Reported History Father Family Medical History: Hypertension General Exam Limitations: no limitations General appearance: alert, in no apparent distress Head exam: Present: atraumatic, normocephalic, normal inspection Eye exam: Present: normal appearance, PERRL, EOMI. Absent: scleral icterus, conjunctival injection, periorbital swelling Respiratory exam: Present: normal lung sounds bilaterally. Absent: respiratory distress, wheezes, rales, rhonchi, stridor Cardiovascular Exam: Present: regular rate, normal rhythm, normal heart sounds. Absent: systolic murmur, diastolic murmur, rubs, gallop, clicks GI/Abdominal exam: Present: soft, tenderness (Right-sided), normal bowel sounds Back exam: Present: CVA tenderness (R) Neurological exam: Present: alert, oriented X3, CN II-XII intact Psychiatric exam: Present: normal affect, normal mood Skin exam: Present: warm, intact, diaphoretic (Mildly) Course Vital Signs 06/18/23 06/18/23 10:59 14:55 Temperature 98.5 F 98.5 F Pulse Rate 75 70 Respiratory 20 18 Rate Blood Pressure 150/75 127/89 O2 Sat by Pulse 99 99 Oximetry - Reevaluation(s) Reevaluation #1: 06/18/23 13:38 Upon reevaluation, patient states she urinated and her pain has now subsided. Patient no signs of acute distress and nontoxic-appearing. Patient appears more comfortable. Medical Decision Making - Medical Decision Making Was pt. sent in by a medical professional or institution (, PA, BRAKE OPERATOR, urgent care, hospital, or retirement...) When possible be specific @ -No Did you speak to anyone other than the patient for history (EMS, parent, family, police, friend...)? What history was obtained from this source @ -No Did you review nursing and triage notes (agree or disagree)? Why? @ -I reviewed and agree with nursing and triage notes Were old charts reviewed (outside hosp., previous admission, EMS record, old EKG, old radiological studies, urgent care reports/EKG's, retirement records)? Report findings @ -No old charts were reviewed Differential Diagnosis (chest pain, altered mental status, abdominal pain women, abdominal pain men, vaginal bleeding, weakness, fever, dyspnea, syncope, headache, dizziness, GI bleed, back pain, seizure, CVA, palpatations, mental health, musculoskeletal)? @ -Differential Abdominal Pain Women: Appendicitis, Cholecystitis, diverticulosis, ischemic bowel, pancreatitis, hepatitis, UTI, gastroenteritis, AAA, incarcerated hernia, bowel obstruction, constipation, inflammatory bowel, hepatitis, peptic ulcer disease, splenic infarction, perforated viscus, vulvitis, ovarian torsion, PID, kidney stone, placenta abruption, this is not meant to be an all-inclusive list EKG interpreted by me (3pts min.). @ -None X-rays interpreted by me (1pt min.). @ -None done CT interpreted by me (1pt min.). @ -None done U/S interpreted by me (1pt. min.). @ - ultrasound by me significant for a single IUP with estimated gestational age 7 weeks 5 days. A 2.2 cm corpus luteum in the right ovary. What testing was considered but not performed or refused? (CT, X-rays, U/S, labs)? Why? @ -Renal ultrasound considered due to possible nephrolithiasis, patient refused. What meds were considered but not given or refused? Why? @ -None Did you discuss the management of the patient with other professionals (professionals i.e. , PA, BRAKE OPERATOR, lab, RT, psych nurse, social service manager, script manager, teacher, affirmative action officer, case technician)? Give summary @ -No Was smoking cessation discussed for >3mins.? @ -No Was critical care preformed (if so, how long)? @ -No Were there social determinants of health that impacted care today? How? (Homelessness, low income, unemployed, alcoholism, drug addiction, transportation, low edu. Level, literacy, decrease access to med. care, custodial, rehab)? @ -No Was there de-escalation of care discussed even if they declined (Discuss DNR or withdrawal of care, Hospice)? DNR status @ -No What co-morbidities impacted this encounter? (DM, HTN, Smoking, COPD, CAD, Cancer, CVA, ARF, Chemo, Hep., AIDS, mental health diagnosis, sleep apnea, morbid obesity)? @ - Was patient admitted / discharged? Hospital course, mention meds given and route, prescriptions, significant lab abnormalities, going to OR and other pertinent info. @ -Discharge. Patient is a 27-year-old female presenting to the ER with chief complaint of right-sided flank and abdominal pain. History and physical exam co mpleted. Vitals stable. Patient with mild signs of distress and in pain. Exquisitely tender to right lower quadrant. Right CVA tenderness. Nontoxic- appearing. Labs obtained significant for AST 64, ALT 88. hCG 119,809. Urine without signs of infection. ultrasound by me significant for a single IUP with estimated gestational age 7 weeks 5 days. A 2.2 cm corpus luteum in the right ovary. Patient received 2 L IV fluid, Zofran and by mouth Tylenol for symptom control in the ER, with relief. Upon reevaluation, patient states after urinating she felt much relief of her pain. Results discussed with patient, all questions answered. Advised patient to follow-up with Dr. Gonzalez as jon eduled tomorrow. Patient discharged with starter pack of Zofran. Strict return parameters discussed. Patient discharged in stable condition with follow-up to [facility]. Patient expressed understanding and agreement with care plan. Case discussed with ED attending, Dr. Steele. Undiagnosed new problem with uncertain prognosis? @ -No Drug Therapy requiring intensive monitoring for toxicity (Heparin, Nitro, Insulin, Cardizem)? @ -No Were any procedures done? @ -No Diagnosis/symptom? @ -Right flank pain/abdominal pain/ Acute, or Chronic, or Acute on Chronic? @ -Acute Uncomplicated (without systemic symptoms) or Complicated (systemic symptoms)? @ -Uncomplicated Side effects of treatment? @ -No Exacerbation, Progression, or Severe Exacerbation? @ -No Poses a threat to life or bodily function? How? (Chest pain, [place], [place], pneumonia, PE, COPD, DKA, ARF, appy, cholecystitis, CVA, Diverticulitis, Homicidal, Suicidal, threat to staff... and all critical care pts) @ -No - Lab Data Result diagrams: 06/18/23 11:13 06/18/23 11:13 Lab Results 06/18/23 06/18/23 06/18/23 Range/Units 11:13 11:13 11:13 WBC 7.6 (3.8-10.6) k/uL RBC 4.46 (3.80-5.40) m/uL Hgb 13.2 (11.4-16.0) gm/dL Hct 39.8 (34.0-46.0) % MCV 89.3 (80.0-100.0) fL MCH 29.5 (25.0-35.0) pg MCHC 33.1 (31.0-37.0) g/dL RDW 12.6 (11.5-15.5) % Plt Count 260 (150-450) k/uL MPV 8.2 Neutrophils % 70 % Lymphocytes % 20 % Monocytes % 6 % Eosinophils % 2 % Basophils % 0 % Neutrophils # 5.3 (1.3-7.7) k/uL Lymphocytes # 1.6 (1.0-4.8) k/uL Monocytes # 0.4 (0-1.0) k/uL Eosinophils # 0.2 (0-0.7) k/uL Basophils # 0.0 (0-0.2) k/uL Sodium 137 (137-145) mmol/L Potassium 3.7 (3.5-5.1) mmol/L Chloride 104 (98-107) mmol/L Carbon Dioxide 22 (22-30) mmol/L Anion Gap 11 mmol/L BUN 8 (7-17) mg/dL Creatinine 0.59 (0.52-1.04) mg/dL Est GFR (CKD-EPI)AfAm >90 (>60 ml/min/1.73 sqM) Est GFR (CKD-EPI)NonAf >90 (>60 ml/min/1.73 sqM) Glucose 92 (74-99) mg/dL Plasma Lactic Acid Avtar (0.7-2.0) mmol/L Calcium 8.7 (8.4-10.2) mg/dL Total Bilirubin 0.6 (0.2-1.3) mg/dL AST 64 H (14-36) U/L ALT 88 H (4-34) U/L Alkaline Phosphatase 75 (38-126) U/L Total Protein 6.4 (6.3-8.2) g/dL Albumin 3.9 (3.5-5.0) g/dL HCG, Quant 968742.0 mIU/mL Urine Color Yellow Urine Appearance Cloudy H (Clear) Urine pH 6.0 (5.0-8.0) Ur Specific Goldsmith 1.029 (1.001-1.035) Urine Protein Trace H (Negative) Urine Glucose (UA) Negative (Negative) Urine Ketones Negative (Negative) Urine Blood Negative (Negative) Urine Nitrite Negative (Negative) Urine Bilirubin Negative (Negative) Urine Urobilinogen 2.0 (<2.0) mg/dL Ur Leukocyte Esterase Trace H (Negative) Urine WBC 2 (0-5) /hpf Ur Squamous Epith Cells 6 H (0-4) /hpf Urine Bacteria Rare H (None) /hpf Urine Mucus Moderate H (None) /hpf Blood Type Blood Type Recheck Bld Type Recheck Status 06/18/23 06/18/23 Range/Units 11:13 11:15 WBC (3.8-10.6) k/uL RBC (3.80-5.40) m/uL Hgb (11.4-16.0) gm/dL Hct (34.0-46.0) % MCV (80.0-100.0) fL MCH (25.0-35.0) pg MCHC (31.0-37.0) g/dL RDW (11.5-15.5) % Plt Count (150-450) k/uL MPV Neutrophils % % Lymphocytes % % Monocytes % % Eosinophils % % Basophils % % Neutrophils # (1.3-7.7) k/uL Lymphocytes # (1.0-4.8) k/uL Monocytes # (0-1.0) k/uL Eosinophils # (0-0.7) k/uL Basophils # (0-0.2) k/uL Sodium (137-145) mmol/L Potassium (3.5-5.1) mmol/L Chloride (98-107) mmol/L Carbon Dioxide (22-30) mmol/L Anion Gap mmol/L BUN (7-17) mg/dL Creatinine (0.52-1.04) mg/dL Est GFR (CKD-EPI)AfAm (>60 ml/min/1.73 sqM) Est GFR (CKD-EPI)NonAf (>60 ml/min/1.73 sqM) Glucose (74-99) mg/dL Plasma Lactic Acid Avtar 0.7 (0.7-2.0) mmol/L Calcium (8.4-10.2) mg/dL Total Bilirubin (0.2-1.3) mg/dL AST (14-36) U/L ALT (4-34) U/L Alkaline Phosphatase (38-126) U/L Total Protein (6.3-8.2) g/dL Albumin (3.5-5.0) g/dL HCG, Quant mIU/mL Urine Color Urine Appearance (Clear) Urine pH (5.0-8.0) Ur Specific Goldsmith (1.001-1.035) Urine Protein (Negative) Urine Glucose (UA) (Negative) Urine Ketones (Negative) Urine Blood (Negative) Urine Nitrite (Negative) Urine Bilirubin (Negative) Urine Urobilinogen (<2.0) mg/dL Ur Leukocyte Esterase (Negative) Urine WBC (0-5) /hpf Ur Squamous Epith Cells (0-4) /hpf Urine Bacteria (None) /hpf Urine Mucus (None) /hpf Blood Type O Positive Blood Type Recheck No Previous Record Bld Type Recheck Status [facility] ONLY - Radiology Data Radiology results: report reviewed, image reviewed Disposition Clinical Impression: Flank pain, Right sided abdominal pain, Disposition: HOME SELF-CARE Condition: Stable Instructions (If sedation given, give patient instructions): Abdominal Pain in (ED) Additional Instructions: Please follow-up with Dr. Gonzalez as scheduled tomorrow. Return to the ER for any new or worsening symptoms. Is patient prescribed a controlled substance at d/c from ED?: No Referrals: Ze Blanco DO [Primary Care Provider] - 1-2 days Lucy Gonzalez DO [Doctor of Osteopathic Medicine] - 1-2 days Time of Disposition: 14:50
[2023-06-18] MEDS ORDERED: ONDANSETRON 4 MG ODT STARTER PACK 2 TAB BTL PO STA (14:50)
[2023-06-18 15:21] VITALS: BP 127/89; PULSE 70; RESP 18
== END 2023-06-18 15:08 | disposition home or self-care (01) ==
LOC: EC 10:55
DX: O34.81 Maternal care for other abnormalities of pelvic organs, first trimester (principal); N83.11 Corpus luteum cyst of right ovary; O10.011 Pre-existing essential hypertension complicating pregnancy, first trimester; O99.611 Diseases of the digestive system complicating pregnancy, first trimester; K21.9 Gastro-esophageal reflux disease without esophagitis; O99.341 Other mental disorders complicating pregnancy, first trimester; F41.9 Anxiety disorder, unspecified; F32.A Depression, unspecified; Z79.899 Other long term (current) drug therapy; Z88.1 Allergy status to other antibiotic agents; Z88.6 Allergy status to analgesic agent; Z3A.01 Less than 8 weeks gestation of pregnancy
CPT/HCPCS: 99285; 96374; 96361 ×2; 36415; 86900; 86901; 80053; 83605; 85025; 81001; 84702; 76801; J2405

== ENCOUNTER → 2023-06-19 | Outpatient (CLI) | payer OTHER | END | disposition home or self-care (01) | LOC: RADUSWWP 14:51 | PROVIDERS: ATTEND Obstetrics & Gynecology | DX: Z53.9 Procedure and treatment not carried out, unspecified reason (principal) ==

== ENCOUNTER 2023-12-10 10:30 | Outpatient (CLI) | payer OTHER ==
[2023-12-10] MEDS: LACTATED RINGERS 1,000 ML IV ONE (12:14)
[2023-12-10] MEDS: ONDANSETRON 4 MG/2 ML VIAL IVP STA (12:19)
[2023-12-10 13:10] LABS: Basophils % (A) 0 %; Eosinophils # (A) 0.1 k/uL (0-0.7); Eosinophils % (A) 1 %; HCT 35.3 % (34.0-46.0); HGB 11.7 gm/dL (11.4-16.0); Lymphocytes # (A) 1.6 k/uL (1.0-4.8); Lymphocytes % (A) 15 %; MCHC 33.3 g/dL (31.0-37.0); MCV 90.2 fL (80.0-100.0); Mean Platelet Volume 8.2; Monocytes # (A) 0.4 k/uL (0-1.0); Monocytes % (A) 4 %; Neutrophils # (A) 8.3 k/uL (1.3-7.7); Neutrophils % (A) 79 %; Platelet Count 332 k/uL (150-450); RBC 3.91 m/uL (3.80-5.40); RDW 12.1 % (11.5-15.5); WBC 10.6 k/uL (3.8-10.6)
[2023-12-10 13:22] LABS: Appearance,Urine Cloudy (Clear); Bacteria,Urine Rare /hpf; Bilirubin,Urine Negative (Negative); Blood,Urine Negative (Negative); Color,Urine Yellow; Glucose,Urine (UA) Negative (Negative); Hyaline Casts,Urine 1 /lpf (0-2); Ketones,Urine Negative (Negative); Leukocyte Esterase,Urine Small (Negative); Mucus,Urine Few /hpf; Nitrite,Urine Negative (Negative); Protein,Urine Trace (Negative); RBC,Urine 1 /hpf (0-5); Specific Gravity,Urine 1.021 (1.001-1.035); Squamous Epithelial Cell,Urine 21 /hpf (0-4); WBC,Urine 3 /hpf (0-5)
[2023-12-10 14:30] VITALS: BP 117/77; PULSE 70; RESP 16; TEMP 97.2
--- NOTE | 2023-12-23 11:19 | P.MSEPDOC ---
Presenting Problems - Arrival Data Date of Arrival on Unit: 12/10/23 Time of Arrival on Unit: 14:15 Mode of Transport: Ambulatory - Complaint OB-Reason for Admission/Chief Complaint: Headache Medical History - Information : 1 Para: 0 Number of Living Children: 0 - Gestational Age Gestational Age by PAYTON (wks/days): 32 Weeks and 4 Days Review of Systems - Review of Systems Constitutional: No problems Breast: No problems ENT: No problems Cardiovascular: No problems Respiratory: No problems Gastrointestinal: No problems Genitourinary: No problems Musculoskeletal: No problems Neurological: No problems Skin: No problems Vital Signs - Temperature Temperature: 97.2 F Temperature Source: Temporal Artery Scan - Pulse Right Sitting Brachial Pulse Rate: 70 Pulse Assessment Method: Automatic Cuff - Respirations Respiratory Rate: 16 Oxygen Delivery Method: Room Air O2 Sat by Pulse Oximetry: 100 - Blood Pressure Right Arm Sitting Blood Pressure: 117/77 Blood Pressure Mean: 90 Blood Pressure Source: Automatic Cuff Medical Screen Scoring - Assessment - Baby A Baseline FHR: 135 Heart Rate - NICHD Category: Category I (Normal) NST: Reactive Physician Notification - Physician Notified Physician Notified Date: 12/10/23 Physician Notified Time: 14:00 Physician: Lucy Gonzalez Order Received: Yes Maternal Triage Index - Maternal Triage Index Presenting for scheduled procedure w/no complaint: No - Stat/Priority 1 Stat Priority 1: No - Urgent/Priority 2 Urgent Priority 2: No - Prompt/Priority 3 Prompt Priority 3: Yes Criteria Met for Priority 3: acute N,V Disposition - Disposition OB Disposition: Discharge to home Discharge Date: 12/10/23 Discharge Time: 14:00 I agree with the RN Medical Screening Exam: Yes Case reviewed; plan agreed upon as documented in EMR&OBIX.: Yes Diagnosis: HEADACHE, UNSPECIFIED
== END 2023-12-10 14:15 | disposition home or self-care (01) ==
LOC: FBPOP 10:30
PROVIDERS: ATTEND Obstetrics & Gynecology
CPT/HCPCS: 36415; 59025; 81001; 85025; 87636; 96365; 96376; 99214

== ENCOUNTER 2024-02-03 16:00 | Outpatient (CLI) | payer OTHER ==
[2024-02-03 18:26] VITALS: BP 124/66; PULSE 80; RESP 16; TEMP 97.5
== END 2024-02-03 17:55 | disposition home or self-care (01) ==
LOC: FBPOP 16:00 → EDSTATUS 16:00 → FBPOP 17:55
PROVIDERS: ATTEND Obstetrics & Gynecology
DX: O48.0 Post-term pregnancy (principal); Z3A.40 40 weeks gestation of pregnancy; Z88.8 Allergy status to other drugs, medicaments and biological substances
CPT/HCPCS: 59025; 59200

== ENCOUNTER 2024-02-04 06:00 | Inpatient (IN) | payer OTHER ==
[2024-02-04] MEDS ORDERED: TERBUTALINE 1 MG/ML VIAL SQ PRN (06:11)
[2024-02-04] MEDS ORDERED: miSOPROStoL 200 MCG TAB RECTAL PRN (06:11)
[2024-02-04] MEDS ORDERED: METHYLERGONOVINE 0.2 MG/ML 1 ML AMP IM PRN (06:11)
[2024-02-04] MEDS ORDERED: OXYTOCIN 10 UNIT/ML 1 ML VIAL IM PRN (06:11)
[2024-02-04] MEDS ORDERED: CARBOPROST TROMETHAMINE 250 MCG/ML 1 ML AMP IM PRN (06:11)
[2024-02-04] MEDS ORDERED: TRANEXAMIC 1,000 MG/100ML-NACL 1,000 MG in EMPTY BAG 1 BAG IV PRN (06:11)
[2024-02-04] MEDS ORDERED: miSOPROStoL 200 MCG TAB PO PRN (06:11)
[2024-02-04] MEDS: LACTATED RINGERS 1,000 ML IV SCH (06:25)
[2024-02-04] MEDS: OXYTOCIN 30 UNITS/500 ML NS 30 UNIT in SALINE 1 500ML.BAG IV SCH (06:25)
[2024-02-04 06:31] LABS: Basophils % (A) 0 %; Eosinophils # (A) 0.2 k/uL (0-0.7); Eosinophils % (A) 2 %; HCT 36.1 % (34.0-46.0); HGB 11.9 gm/dL (11.4-16.0); Lymphocytes # (A) 2.5 k/uL (1.0-4.8); Lymphocytes % (A) 21 %; MCH 29.4 pg (25.0-35.0); MCV 89.3 fL (80.0-100.0); Mean Platelet Volume 8.3; Monocytes # (A) 0.5 k/uL (0-1.0); Monocytes % (A) 4 %; Neutrophils # (A) 8.3 k/uL (1.3-7.7); Neutrophils % (A) 71 %; Platelet Count 287 k/uL (150-450); RBC 4.04 m/uL (3.80-5.40); RDW 12.6 % (11.5-15.5); WBC 11.7 k/uL (3.8-10.6)
[2024-02-04] MEDS ORDERED: BUTORPHANOL 2 MG/ML 1 ML VIAL IV PRN (08:24)
[2024-02-04] MEDS: BUTORPHANOL 1 MG/ML 1 ML VIAL IV PRN (08:38)
[2024-02-04] MEDS ORDERED: SODIUM CHLORIDE 0.9% 250 ML BAG ONE (10:28)
[2024-02-04] MEDS ORDERED: fentaNYL (PF) 50 MCG/ML 5 ML AMP ONE (10:28)
[2024-02-04] MEDS ORDERED: ROPIVACAINE 5 MG/ML 30 ML VIAL ONE (10:28)
[2024-02-04] MEDS: LIDOCAINE 0.5% (PF) 5 MG/ML (50 ML SDV) SQ PRN (12:53)
[2024-02-04] MEDS ORDERED: LANOLIN CREAM 1 GM TUBE TOPICAL PRN (13:16)
[2024-02-04] MEDS ORDERED: ZOLPIDEM 5 MG TAB PO PRN (13:16)
[2024-02-04] MEDS ORDERED: diphenhydrAMINE 50 MG/ML 1 ML VIAL IVP PRN ×2 (13:16)
[2024-02-04] MEDS ORDERED: BENZOCAINE/MENTHOL SPRAY 1 GM/SPRAY AEROSOL TOPICAL PRN (13:16)
[2024-02-04] MEDS ORDERED: diphenhydrAMINE 50 MG CAP PO PRN (13:16)
[2024-02-04] MEDS ORDERED: diphenhydrAMINE 25 MG CAP PO PRN (13:16)
[2024-02-04] MEDS ORDERED: SIMETHICONE 80 MG CHEWABLE PO PRN (13:16)
[2024-02-04] MEDS ORDERED: HYDROCORTISONE 2.5% RECTAL CREAM 30 GM TUBE RECTAL PRN (13:16)
[2024-02-04] MEDS: IBUPROFEN 800 MG TAB PO SCH (14:12)
[2024-02-04] MEDS: ACETAMINOPHEN TAB 500 MG TAB PO SCH (17:45)
[2024-02-04] MEDS: SENNOSIDES-DOCUSATE SODIUM 1 EACH TAB PO SCH (20:12)
[2024-02-04 20:35] VITALS: RESP 16
[2024-02-05 04:18] LABS: Basophils % (A) 0 %; Eosinophils # (A) 0.1 k/uL (0-0.7); Eosinophils % (A) 1 %; Lymphocytes # (A) 2.4 k/uL (1.0-4.8); Lymphocytes % (A) 17 %; MCHC 33.3 g/dL (31.0-37.0); MCV 89.8 fL (80.0-100.0); Mean Platelet Volume 8.6; Monocytes # (A) 0.6 k/uL (0-1.0); Monocytes % (A) 4 %; Neutrophils # (A) 10.4 k/uL (1.3-7.7); Neutrophils % (A) 76 %; Platelet Count 229 k/uL (150-450); RBC 2.89 m/uL (3.80-5.40); RDW 12.6 % (11.5-15.5); WBC 13.6 k/uL (3.8-10.6)
[2024-02-05 04:38] LABS: HGB 8.7 gm/dL (11.4-16.0)
--- NOTE | 2024-02-05 07:53 | P.HPOB ---
History of Present Illness H&P Date: 02/04/24 Chief Complaint: indution of labor 28 year old presents at 40 weeks and 4 days. She presented last evening for Dilapan placement. 5 rods were placed and she tolerated well overnight. She is wilmra irregularly and cervix is now 3/80/-2 after removal of the rods. Fe marquita heart tones category 1. Review of Systems All systems: negative Constitutional: Denies chills, Denies fever Eyes: denies blurred vision, denies pain Ears, nose, mouth and throat: Denies headache, Denies sore throat Cardiovascular: Denies chest pain, Denies shortness of breath Respiratory: Denies cough Gastrointestinal: Denies abdominal pain, Denies diarrhea, Denies nausea, Denies vomiting Genitourinary: Denies dysuria, Denies hematuria Musculoskeletal: Denies myalgias Integumentary: Denies pruritus, Denies rash Neurological: Denies numbness, Denies weakness Psychiatric: Denies anxiety, Denies depression Endocrine: Denies fatigue, Denies weight change Past Medical History Past Medical History: Fibromyalgia, GERD/Reflux, Osteoarthritis (OA) Additional Past Medical History / Comment(s): OCCASIONAL RESTLESS LEGS, MIGRAINES, STATES IRREGULAR HEART BEAT, HX LOW IRON WITH IRON TRANSFUSIONS (FEB 2019). Recently having issues with fast heart rate and palpitations. History of Any Multi-Drug Resistant Organisms: None Reported Past Surgical History: Adenoidectomy, Appendectomy, Bariatric Surgery, Cholecystectomy, Ear Surgery, Orthopedic Surgery, Tonsillectomy Additional Past Surgical History / Comment(s): Gastric Sleeve, multiple bilateral ear tubes, back injections, left foot surgery. Past Anesthesia/Blood Transfusion Reactions: No Reported Reaction Past Psychological History: Anxiety, Depression Additional Psychological History / Comment(s): . Smoking Status: Never smoker Past Alcohol Use History: None Reported Past Drug Use History: None Reported - Past Family History Mother Family Medical History: No Reported History Father Family Medical History: Hypertension Medications and Allergies Home Medications Medication Instructions Recorded Confirmed Type Desvenlafaxine Succinate [Pristiq] 100 mg PO DAILY 12/28/20 02/04/24 History Ondansetron Odt [Zofran ODT] 4 mg PO Q12HR PRN 12/28/20 02/04/24 History lamoTRIgine [LaMICtal] 100 mg PO BID 12/28/20 02/04/24 History nadoloL [Corgard] 20 mg PO DAILY 12/28/20 02/04/24 History traZODone HCL 300 mg PO HS 12/28/20 02/04/24 History Pantoprazole Sodium 40 mg PO DAILY 04/17/23 02/04/24 History Temazepam [Restoril] 15 mg PO HS PRN 12/10/23 02/04/24 History Pnv No.154/Iron Fum/Folic Acid 1 tablet PO DAILY 02/03/24 02/04/24 History [ Plus Vitamin Tablet] Allergies Allergy/AdvReac Type Severity Reaction Status Date / Time asenapine maleate Allergy Rash/Hives Verified 02/04/24 06:08 [From Saphris] cefaclor [From Ceclor] Allergy Rash/Hives Verified 02/04/24 06:08 Exam Osteopathic Statement: *. No significant issues noted on an osteopathic structural exam other than those noted in the History and Physical/Consult. Vital Signs Temp Pulse Resp BP Pulse Ox 02/05/24 06:00 98.6 F 02/05/24 02:00 97.6 F 72 16 125/84 97 02/04/24 20:00 97.5 F L 73 16 131/81 96 02/04/24 15:40 54 L 129/84 02/04/24 15:00 97.3 F L 62 18 134/75 98 02/04/24 14:45 97.8 F 66 18 119/73 02/04/24 14:30 61 117/67 02/04/24 14:15 66 18 120/69 02/04/24 14:00 96.4 F L 59 L 18 124/71 02/04/24 13:45 96.4 F L 62 18 121/78 02/04/24 13:30 97.2 F L 61 18 132/79 02/04/24 13:15 97.7 F 72 18 123/64 02/04/24 13:00 97.3 F L 62 18 131/78 Intake and Output 02/04/24 02/05/24 02/05/24 22:59 06:59 14:59 Output Total 200 Balance -200 Output: Output, Quantitative 200 Blood Loss Other: # Voids 1 2 Heart: Regular rate and rhythm Lungs: Clear to auscultation bilaterally Abdomen: Soft, nontender Extremities: Negative Homans sign Results Result Diagrams: 02/05/24 04:02 Abnormal Lab Results - Last 24 Hours (Table) 02/05/24 Range/Units 04:02 WBC 13.6 H (3.8-10.6) k/uL RBC 2.89 L (3.80-5.40) m/uL Hgb 8.7 L D (11.4-16.0) gm/dL Hct 26.0 L (34.0-46.0) % Neutrophils # 10.4 H (1.3-7.7) k/uL Assessment and Plan (1) Encounter for induction of labor Current Visit: Yes Status: Acute Code(s): Z34.90 - ENCNTR FOR SUPRVSN OF NORMAL , UNSP, UNSP TRIMESTER SNOMED Code(s): 918028648 (2) 40 weeks gestation of Current Visit: Yes Status: Acute Code(s): Z3A.40 - 40 WEEKS GESTATION OF SNOMED Code(s): 85102619 Plan: 1. induction of labor 2. anticipate normal vaginal delivery.
--- NOTE | 2024-02-05 07:56 | P.PROBDLV ---
Vaginal Delivery Note - . Vaginal Delivery Note: 28 year old presents at 40 weeks and 4 days. She presented last evening for Dilapan placement. 5 rods were placed and she tolerated well overnight. She is wilmar irregularly and cervix is now 3/80/-2 after removal of the rods. heart tones category 1.Amniotomy performed at 7:51 AM Thin meconium fluid noted. The patient was uncomfortable she did get an epidural. Her cervix was completely dilated by 1218. She pushed, the viable female over intact perineum under epidural anesthesia at 12:46 PM. Head delivered OA, nuchal cord 1 easily reduced, anterior shoulder delivered gentle downward guidance. Posterior shoulder and rest of body. Nose and mouth bulb suctioned, cord clamped and cut, placed mother's abdomen. Apgars 7, 8, weight 6 lbs. 2 oz. Placenta delivered spontaneously, intact with three-vessel cord at 1250. Vagina, cervix, perineum inspected. First-degree midline laceration was repaired with 3-0 Vicryl. Estimated blood loss 200 mL. Mother and baby in stable condition.
--- NOTE | 2024-02-05 08:25 | P.DS ---
Providers Date of admission: 02/04/24 06:03 Expected date of discharge: 02/05/24 Attending physician: Lucy Gonzalez Primary care physician: Stated None - Discharge Diagnosis(es) (1) Encounter for induction of labor Current Visit: Yes Status: Resolved (2) 40 weeks gestation of Current Visit: Yes Status: Resolved (3) Status post normal vaginal delivery Current Visit: Yes Status: Acute Hospital Course: She presented for induction of labor. She per first had cervical ripening with Dilapan and then she re-presented for Pitocin and amniotomy. She underwent a normal vaginal delivery under epidural anesthesia. course was benign uneventful. She denies nausea, vomiting, chest pain, shortness of breath or calf pain. Plan - Discharge Summary New Discharge Prescriptions: New Ibuprofen [Motrin] 800 mg PO Q8HR #30 tab No Action Desvenlafaxine Succinate [Pristiq] 100 mg PO DAILY nadoloL [Corgard] 20 mg PO DAILY Ondansetron Odt [Zofran ODT] 4 mg PO Q12HR PRN PRN Reason: Nausea Pantoprazole Sodium 40 mg PO DAILY Pnv No.154/Iron Fum/Folic Acid [ Plus Vitamin Tablet] 1 tablet PO DAILY lamoTRIgine [LaMICtal] 100 mg PO BID traZODone HCL 300 mg PO HS Temazepam [Restoril] 15 mg PO HS PRN PRN Reason: Insomnia Discharge Medication List Desvenlafaxine Succinate [Pristiq] 100 mg PO DAILY 12/28/20 [History] Ondansetron Odt [Zofran ODT] 4 mg PO Q12HR PRN 12/28/20 [History] lamoTRIgine [LaMICtal] 100 mg PO BID 12/28/20 [History] nadoloL [Corgard] 20 mg PO DAILY 12/28/20 [History] traZODone HCL 300 mg PO HS 12/28/20 [History] Pantoprazole Sodium 40 mg PO DAILY 04/17/23 [History] Temazepam [Restoril] 15 mg PO HS PRN 12/10/23 [History] Pnv No.154/Iron Fum/Folic Acid [ Plus Vitamin Tablet] 1 tablet PO DAILY 02/03/24 [History] Ibuprofen [Motrin] 800 mg PO Q8HR #30 tab 02/05/24 [Rx] Follow up Appointment(s)/Referral(s): Lucy Gonzalez DO [Doctor of Osteopathic Medicine] - 03/17/24 1:15 pm () Discharge Disposition: HOME SELF-CARE
[2024-02-05] MEDS: FERROUS SULFATE 325 MG TAB PO SCH (09:58)
[2024-02-05] MEDS: LACTATED RINGERS 500 ML IV ONE (14:07)
[2024-02-06 07:08] LABS: Basophils % (A) 0 %; Eosinophils # (A) 0.3 k/uL (0-0.7); Eosinophils % (A) 3 %; HCT 28.9 % (34.0-46.0); HGB 9.6 gm/dL (11.4-16.0); Lymphocytes # (A) 2.3 k/uL (1.0-4.8); Lymphocytes % (A) 22 %; MCH 30.2 pg (25.0-35.0); MCHC 33.3 g/dL (31.0-37.0); MCV 90.7 fL (80.0-100.0); Mean Platelet Volume 7.9; Monocytes # (A) 0.4 k/uL (0-1.0); Monocytes % (A) 4 %; Neutrophils # (A) 7.2 k/uL (1.3-7.7); Neutrophils % (A) 70 %; Platelet Count 258 k/uL (150-450); RBC 3.18 m/uL (3.80-5.40); WBC 10.4 k/uL (3.8-10.6)
--- NOTE | 2024-02-06 07:26 | P.PNOBGVD ---
Subjective - Subjective Principal diagnosis: day #2, status postnormal spontaneous vaginal delivery Interval history: Patient is doing well . Patient did have 1 episode of hypotension after taking atenolol yesterday. Patient was given fluid bolus and has felt well since then. Patient has had normal blood pressure since that time. She is ambulating and voiding without difficulty. Her lochia is noted to be minimal to moderate. Her pain is well-controlled. She is tolerating a regular diet without nausea or vomiting. Patient reports: Reports appetite normal, Reports voiding normally, Reports pain well controlled, Reports ambulating normally : doing well Objective - Latest Vital Signs Latest vital signs: Vital Signs Temp Pulse Resp BP Pulse Ox 02/06/24 04:00 16 02/06/24 00:00 97.7 F 71 16 135/83 100 02/05/24 16:00 97.6 F 77 16 134/74 100 02/05/24 12:00 98.0 F 60 16 89/48 98 02/05/24 08:00 96.7 F L 77 16 105/72 Intake and Output 02/05/24 02/06/24 02/06/24 22:59 06:59 14:59 Other: # Voids 2 2 - Exam Extremities: Present: normal, edema Abdomen: Present: normal appearance, soft Uterus: Present: normal, firm - Labs Labs: Abnormal Lab Results - Last 24 Hours (Table) 02/06/24 Range/Units 06:11 RBC 3.18 L (3.80-5.40) m/uL Hgb 9.6 L (11.4-16.0) gm/dL Hct 28.9 L (34.0-46.0) % Assessment and Plan (1) Status post normal vaginal delivery Current Visit: Yes Status: Acute Code(s): SUY8176 - SNOMED Code(s): 500825241 (2) 40 weeks gestation of Current Visit: Yes Status: Resolved Code(s): Z3A.40 - 40 WEEKS GESTATION OF SNOMED Code(s): 27781147 (3) Encounter for induction of labor Current Visit: Yes Status: Resolved Code(s): Z34.90 - ENCNTR FOR SUPRVSN OF NORMAL , UNSP, UNSP TRIMESTER SNOMED Code(s): 476240057 Plan: Patient is doing well, plan discharge this morning. Routine follow-up with Dr. Gonzalez at 6 weeks.
[2024-02-06 08:07] VITALS: BP 119/76; PULSE 73; TEMP 97.9
== END 2024-02-06 10:05 | disposition home or self-care (01) | DRG 560 ==
LOC: 4FBP 06:03
PROVIDERS: ADMIT Obstetrics & Gynecology; ATTEND Obstetrics & Gynecology
PROC: 3E0P7VZ Introduction of Hormone into Female Reproductive, Via Natural or Artificial Opening (ICD-10-PCS; 2024-02-04)
PROC: 10E0XZZ Delivery of Products of Conception, External Approach (ICD-10-PCS; principal; 2024-02-05)
PROC: 0HQ9XZZ Repair Perineum Skin, External Approach (ICD-10-PCS; 2024-02-05)
PROC: 10907ZC Drainage of Amniotic Fluid, Therapeutic from Products of Conception, Via Natural or Artificial Opening (ICD-10-PCS; 2024-02-05)
DX: O48.0 Post-term pregnancy (principal); G25.81 Restless legs syndrome; M79.7 Fibromyalgia; O69.81X0 Labor and delivery complicated by cord around neck, without compression, not applicable or unspecified; O70.0 First degree perineal laceration during delivery; O77.0 Labor and delivery complicated by meconium in amniotic fluid; Z37.0 Single live birth; Z3A.40 40 weeks gestation of pregnancy; Z79.899 Other long term (current) drug therapy
CPT/HCPCS: 85025; 86850; 86900; 86901

== ENCOUNTER 2024-02-10 18:31 | Outpatient (CLI) | payer OTHER ==
[2024-02-10] MEDS: LACTATED RINGERS 1,000 ML BAG IV STA (19:00)
[2024-02-10 19:24] LABS: Basophils % (A) 0 %; Eosinophils # (A) 0.2 k/uL (0-0.7); Eosinophils % (A) 2 %; HCT 30.4 % (34.0-46.0); Lymphocytes # (A) 2.2 k/uL (1.0-4.8); Lymphocytes % (A) 28 %; MCHC 32.8 g/dL (31.0-37.0); MCV 91.4 fL (80.0-100.0); Mean Platelet Volume 7.4; Monocytes # (A) 0.4 k/uL (0-1.0); Monocytes % (A) 6 %; Neutrophils # (A) 4.9 k/uL (1.3-7.7); Neutrophils % (A) 62 %; Platelet Count 334 k/uL (150-450); RBC 3.32 m/uL (3.80-5.40); RDW 13.3 % (11.5-15.5); WBC 7.9 k/uL (3.8-10.6)
[2024-02-10 19:29] LABS: Appearance,Urine Cloudy (Clear); Bilirubin,Urine Negative (Negative); Blood,Urine Large (Negative); Color,Urine Yellow; Glucose,Urine (UA) Negative (Negative); Hyaline Casts,Urine 1 /lpf (0-2); Ketones,Urine Trace (Negative); Leukocyte Esterase,Urine Large (Negative); Mucus,Urine Few /hpf; Nitrite,Urine Negative (Negative); Protein,Urine Trace (Negative); RBC,Urine 65 /hpf (0-5); Squamous Epithelial Cell,Urine 2 /hpf (0-4); Urobilinogen,Urine <2.0 mg/dL (<2.0); WBC,Urine 33 /hpf (0-5)
[2024-02-10] MEDS: LACTATED RINGERS 1,000 ML IV ONE (19:32)
--- NOTE | 2024-02-23 06:30 | P.MSEPDOC ---
Presenting Problems - Arrival Data Date of Arrival on Unit: 02/10/24 Time of Arrival on Unit: 18:31 Mode of Transport: Ambulatory - Complaint OB-Reason for Admission/Chief Complaint: Dizziness, Other Comment: Patient presents to triage for dehydration, nausea, diarrhea, and dizzyness. Medical History - Information : 1 Para: 1 Term: 1 : 0 Abortions: Spontaneous or Elective: 0 Number of Living Children: 1 - Gestational Age Gestational Age by PAYTON (wks/days): 40 Weeks and 6 Days Review of Systems - Review of Systems Constitutional: No problems Breast: No problems ENT: No problems Cardiovascular: No problems Respiratory: No problems Gastrointestinal: No problems Genitourinary: No problems Musculoskeletal: No problems Neurological: No problems Skin: No problems Physician Notification - Physician Notified Physician Notified Date: 02/10/24 Physician Notified Time: 18:06 Physician: Cj Kidd Order Received: Yes (discharge home) Maternal Triage Index - Non-Urgent/Priority 4 Non-Urgent Priority 4: Yes Criteria Met for Priority 4: Patient presents to triage for dehydration, nausea, diarrhea, and dizzyness. Disposition - Disposition OB Disposition: Discharge to home I agree with the RN Medical Screening Exam: Yes Physician's MSE Comment: I have neither seen nor examined the patient. Case reviewed; plan agreed upon as documented in EMR&OBIX.: Yes Diagnosis: DEHYDRATION
== END 2024-02-10 20:54 ==
LOC: FBPOP 18:31
PROVIDERS: ATTEND Obstetrics & Gynecology
DX: O09.893 Supervision of other high risk pregnancies, third trimester (principal); O99.283 Endocrine, nutritional and metabolic diseases complicating pregnancy, third trimester; E86.0 Dehydration; Z3A.40 40 weeks gestation of pregnancy; Z88.8 Allergy status to other drugs, medicaments and biological substances
CPT/HCPCS: 96360; 36415; 85025; 81001; 87636; G0463; 99214

== ENCOUNTER 2024-05-05 12:42 | Emergency (ER) | payer OTHER ==
[2024-05-05] MEDS: HYDROmorphone 1 MG/ML 1 ML SYRINGE IVP STA ×2 (13:30→14:57)
--- NOTE | 2024-05-05 13:42 | ED ---
Fall HPI - General Chief Complaint: Fall Stated Complaint: fall - rt leg injury Time Seen by Provider: 05/05/24 12:43 Source: patient, EMS, RN notes reviewed Mode of arrival: EMS Limitations: physical limitation - History of Present Illness Initial Comments: 28-year-old female presents emergency department complaint of right leg injury. She was coming down last couple of she slipped. Patient Hoppes deformity to right distal tib-fib region. Patient denies any head injury no loss conscious no other injuries noted. - Related Data Home Medications Medication Instructions Recorded Confirmed Desvenlafaxine Succinate [Pristiq] 100 mg PO DAILY 12/28/20 02/10/24 Ondansetron Odt [Zofran ODT] 4 mg PO Q12HR PRN 12/28/20 02/10/24 lamoTRIgine [LaMICtal] 100 mg PO BID 12/28/20 02/10/24 nadoloL [Corgard] 20 mg PO DAILY 12/28/20 02/10/24 traZODone HCL 300 mg PO HS 12/28/20 02/04/24 Pantoprazole Sodium 40 mg PO DAILY 04/17/23 02/10/24 Temazepam [Restoril] 15 mg PO HS PRN 12/10/23 02/10/24 Pnv No.154/Iron Fum/Folic Acid 1 tablet PO DAILY 02/03/24 02/10/24 [ Plus Vitamin Tablet] Previous Rx's Medication Instructions Recorded Ibuprofen [Motrin] 800 mg PO Q8HR #30 tab 02/05/24 HYDROcodone/APAP 7.5-325MG [Edgar 1 tab PO Q6HR PRN 3 Days #12 tab 05/05/24 7.5-325] Allergies Allergy/AdvReac Type Severity Reaction Status Date / Time asenapine maleate Allergy Rash/Hives Verified 05/05/24 12:53 [From Saphris] cefaclor [From Ceclor] Allergy Rash/Hives Verified 05/05/24 12:53 Review of Systems ROS Statement: Those systems with pertinent positive or pertinent negative responses have been documented in the HPI. ROS Other: All systems not noted in ROS Statement are negative. Past Medical History Past Medical History: Fibromyalgia, GERD/Reflux, Osteoarthritis (OA) Additional Past Medical History / Comment(s): OCCASIONAL RESTLESS LEGS, MIGRAINES, STATES IRREGULAR HEART BEAT, HX LOW IRON WITH IRON TRANSFUSIONS (FEB 2019). Recently having issues with fast heart rate and palpitations. History of Any Multi-Drug Resistant Organisms: None Reported Past Surgical History: Adenoidectomy, Appendectomy, Bariatric Surgery, Cholecystectomy, Ear Surgery, Orthopedic Surgery, Tonsillectomy Additional Past Surgical History / Comment(s): Gastric Sleeve, multiple bilateral ear tubes, back injections, left foot surgery. Past Anesthesia/Blood Transfusion Reactions: No Reported Reaction Past Psychological History: Anxiety, Depression Smoking Status: Never smoker - Past Family History Mother Family Medical History: No Reported History Father Family Medical History: Hypertension General Exam Limitations: no limitations General appearance: alert, in no apparent distress Head exam: Present: atraumatic, normocephalic, normal inspection Respiratory exam: Present: normal lung sounds bilaterally. Absent: respiratory distress, wheezes, rales, rhonchi, stridor Cardiovascular Exam: Present: regular rate, normal rhythm, normal heart sounds. Absent: systolic murmur, diastolic murmur, rubs, gallop, clicks Extremities exam: Present: other (Distal third of the right tib-fib tenderness palpation, obvious deformity neurovascular intact no proximal leg pain) Neurological exam: Present: reflexes normal. Absent: motor sensory deficit Course Vital Signs 05/05/24 05/05/24 05/05/24 12:49 14:30 15:22 Temperature 98.1 F 98 F 98.0 F Pulse Rate 62 65 60 Respiratory 18 18 20 Rate Blood Pressure 144/92 140/87 132/87 O2 Sat by Pulse 99 99 98 Oximetry Procedures - Orthopedic Fracture Reduction Fracture #1 Consent Obtained: verbal consent Side: right Fracture Reduction Location: tibia, fibula Analgesia: other Technique: direct manipulation, traction/counter-traction Post Reduction X-rays Demonstrate: acceptable reduction Post-Reduction Neuro Exam: intact Post-Reduction Vascular Exam: intact Splint Applied: Yes Patient Tolerated Procedure: well, no complications - Orthopedic Splinting/Casting Injury #1 Side: right Lower Extremity Injury Location: short leg, ankle Lower Extremity Immobilizer: posterior splint, stirrup splint, synthetic pre- padded splint Other Orthopedic Equipment: crutches Medical Decision Making - Medical Decision Making Was pt. sent in by a medical professional or institution (, PA, FUNERAL PLANNING COUNSELOR, urgent care, hospital, or [facility]...) When possible be specific @ -No Did you speak to anyone other than the patient for history (EMS, parent, family, police, friend...)? What history was obtained from this source @ -No Did you review nursing and triage notes (agree or disagree)? Why? @ -I reviewed and agree with nursing and triage notes Were old charts reviewed (outside hosp., previous admission, EMS record, old EKG, old radiological studies, urgent care reports/EKG's, [facility] records)? Report findings @ -No old charts were reviewed Differential Diagnosis (chest pain, altered mental status, abdominal pain women, abdominal pain men, vaginal bleeding, weakness, fever, dyspnea, syncope, headache, dizziness, GI bleed, back pain, seizure, CVA, palpatations, mental health, musculoskeletal)? @ -Ankle fracture, ankle dislocation, ankle sprain EKG interpreted by me (3pts min.). @ -None X-rays interpreted by me (1pt min.). @ -@Right tib-fib showing displaced distal tib-fib fracture X-ray right ankle limited postreduction adequate reduction, trimalar fracture CT interpreted by me (1pt min.). @ -None done U/S interpreted by me (1pt. min.). @ -None done What testing was considered but not performed or refused? (CT, X-rays, U/S, labs)? Why? @ -None What meds were considered but not given or refused? Why? @ -None Did you discuss the management of the patient with other professionals (professionals i.e. , PA, FUNERAL PLANNING COUNSELOR, lab, RT, psych nurse, social media marketing manager, obstetrician and gynaecologist, teacher, infantry officer, patient case coordinator)? Give summary @ -No Was smoking cessation discussed for >3mins.? @ -No Was critical care preformed (if so, how long)? @ -No Were there social determinants of health that impacted care today? How? (Homelessness, low income, unemployed, alcoholism, drug addiction, transportation, low edu. Level, literacy, decrease access to med. care, prison, rehab)? @ -No Was there de-escalation of care discussed even if they declined (Discuss DNR or withdrawal of care, Hospice)? DNR status @ -No What co-morbidities impacted this encounter? (DM, HTN, Smoking, COPD, CAD, Canc er, CVA, ARF, Chemo, Hep., AIDS, mental health diagnosis, sleep apnea, morbid obesity)? @ -None Was patient admitted / discharged? Hospital course, mention meds given and route, prescriptions, significant lab abnormalities, going to OR and other pertinent info. @ -Discharge patient was splinted after reduction, patient discharged with analgesics, crutches will follow-up with orthopedics for further treatment. Undiagnosed new problem with uncertain prognosis? @ -No Drug Therapy requiring intensive monitoring for toxicity (Heparin, Nitro, Insulin, Cardizem)? @ -No Were any procedures done? @ -No Diagnosis/symptom? @ -Right trimalar fracture Acute, or Chronic, or Acute on Chronic? @ -Acute Uncomplicated (without systemic symptoms) or Complicated (systemic symptoms)? @ -Complicated Side effects of treatment? @ -No Exacerbation, Progression, or Severe Exacerbation? @ -No Poses a threat to life or bodily function? How? (Chest pain, [place], [place], pneumonia, PE, COPD, DKA, ARF, appy, cholecystitis, CVA, Diverticulitis, Homicidal, Suicidal, threat to staff... and all critical care pts) @ -No Disposition Clinical Impression: Fall, Closed right trimalleolar fracture Disposition: HOME SELF-CARE Condition: Stable Instructions (If sedation given, give patient instructions): Ankle Fracture (ED) Additional Instructions: Please return to the Emergency Department if symptoms worsen or any other concerns. Prescriptions: HYDROcodone/APAP 7.5-325MG [Edgar 7.5-325] 1 tab PO Q6HR PRN 3 Days #12 tab PRN Reason: Pain Is patient prescribed a controlled substance at d/c from ED?: Yes When asked, does pt state using other controlled substances?: No If prescribed controlled substance>3 days was MAPS reviewed?: Prescribed <3 Days If opioid is for acute pain is fill amount 7 days or less?: Yes If Rx opioid, was Start Talking consent form obtained?: Yes Referrals: Ze Blanco DO [Primary Care Provider] - 1-2 days Masood Drake MD [STAFF PHYSICIAN] - 1-2 days
--- NOTE | 2024-05-05 14:43 | XR ---
EXAMINATION TYPE: XR tibia fibula RT DATE OF EXAM: 05/05/2024 COMPARISON: NONE CLINICAL INDICATION: Female, 28 years old with history of pain; TECHNIQUE: 2 views FINDINGS: There is a minimally comminuted oblique fracture of the distal fibula with posterior displa cement of 6 mm and slight lateral angulation. There is a transverse fracture through the medial malle olus displaced laterally by nearly 1 cm. There is also posterior subluxation at the tibiotalar joint and suspected posterior malleolar fracture fragment as well. No proximal tibial or fibular fracture i s seen. IMPRESSION: Unstable trimalleolar fracture subluxation at the right ankle. [facility], Workstation: [facility], 05/05/2024 2:41 PM
--- NOTE | 2024-05-05 15:08 | XR ---
EXAMINATION TYPE: XR ankle limited RT DATE OF EXAM: 05/05/2024 COMPARISON: Tibia/fibula earlier today CLINICAL INDICATION: Female, 28 years old with history of pain; TECHNIQUE: 2 views FINDINGS: Interval reduction of the tibial talar joint. Redemonstrated oblique fracture distal fibula with associated minimal comminution. 6 mm of posterior displacement remains, unchanged. However, the lateral angulation has improved. A transverse fracture through the medial malleolus shows some persi stent anterior displacement but the lateral displacement now measures only 5 mm versus 1 cm, previous ly. There is an additional fragment of bone posteriorly is suspected posterior malleolar fracture fra gment. Subtalar joint is aligned. Some of delineation to the Achilles tendon. Circumferential soft ti ssue swelling. IMPRESSION: Unstable trimalleolar ankle fractures with interval reduction of the tibiotalar joint. 5 mm of displa cement remains at the medial malleolus versus 1 cm, previously. The previous lateral angulation of th e fibular fracture shows improvement. Soft tissue swelling. [facility], , 05/05/2024 3:06 PM
[2024-05-05 15:26] VITALS: BP 132/87; PULSE 60; RESP 20; TEMP 98
== END 2024-05-05 15:46 | disposition home or self-care (01) ==
LOC: EC 12:42
DX: S82.851A Displaced trimalleolar fracture of right lower leg, initial encounter for closed fracture (principal); Z88.1 Allergy status to other antibiotic agents; Z88.8 Allergy status to other drugs, medicaments and biological substances; W01.0XXA Fall on same level from slipping, tripping and stumbling without subsequent striking against object, initial encounter
CPT/HCPCS: 73590; 73600; 99283; 27752; 96374; 96376; J1171

== ENCOUNTER → 2024-10-08 | Outpatient (CLI) | payer OTHER ==
[2024-10-08 14:16] LABS: INR 1.0 (<1.2); Partial Thromboplastin Time 24.2 sec (22.0-30.0); Prothrombin Time 11.3 sec (10.0-12.5)
[2024-10-08 19:54] LABS: HCT 34.5 % (37.2-46.3); HGB 9.8 g/dL (12.0-15.0); MCH 21.0 pg (27.0-32.0); MCHC 28.4 g/dL (32.0-37.0); MCV 73.9 FL (80.0-97.0); NRBC Per 100 WBC 0 X 10*3/uL (0.00-0.01); Platelet Count 448 X 10*3/uL (140-440); RBC 4.67 X 10*6/uL (4.10-5.20); RDW 17.3 % (11.5-14.5); WBC 6.84 X 10*3/uL (4.50-10.00)
[2024-10-08 21:10] LABS: Prealbumin 23.1 mg/dL (18.0-42.0)
[2024-10-08 22:30] LABS: ALT 11 U/L (8-44); AST 17 U/L (13-35); Albumin 4.4 g/dL (3.8-4.9); Albumin/Globulin Ratio 1.63 Ratio (1.60-3.17); Alkaline Phosphatase 101 U/L (41-126); Anion Gap 12.60 mmol/L (4.00-12.00); BUN/Creat Ratio 14.89 Ratio (12.00-20.00); Blood Urea Nitrogen 13.4 mg/dL (9.0-27.0); Calcium 9.2 mg/dL (8.7-10.3); Carbon Dioxide 23.4 mmol/L (21.6-31.8); Chloride 101 mmol/L (96-109); Cholesterol 148.00 mg/dL (0.00-200.00); Ferritin 18.4 ng/mL (10.0-291.0); Globulin 2.7 g/dL (1.6-3.3); Glucose 90 mg/dL (70-110); HDL Cholesterol 61.60 mg/dL (40.00-60.00); Iron 52 UG/DL (50-170); LDL Cholesterol,Calculated 70.6 mg/dL (0.0-131.0); Magnesium 2.1 mg/dL (1.5-2.4); Potassium 4.4 mmol/L (3.5-5.5); Sodium 137 mmol/L (135-145); Total Iron Binding Capacity 521 UG/DL (228-460); Total Protein 7.1 g/dL (6.2-8.2); Triglycerides 79.10 mg/dL (0.00-149.00); VLDL Calculation 15.82 mg/dL (5.00-40.00)
[2024-10-08 22:59] LABS: Vitamin B12 >3600.0 pg/mL (200.0-944.0)
== END | disposition home or self-care (01) ==
LOC: LABWHC1 13:26
PROVIDERS: ATTEND Surgery Plastic and Reconstructive Surgery
DX: E66.01 Morbid (severe) obesity due to excess calories (principal); E89.1 Postprocedural hypoinsulinemia; E44.0 Moderate protein-calorie malnutrition; E45 Retarded development following protein-calorie malnutrition; D50.8 Other iron deficiency anemias; E55.9 Vitamin D deficiency, unspecified; N19 Unspecified kidney failure; T56.894A Toxic effect of other metals, undetermined, initial encounter; K50.90 Crohn's disease, unspecified, without complications
CPT/HCPCS: 36415; 80053; 80061; 82306; 82525; 82607; 82728; 82746; 83036; 83540; 83550; 83735; 83970; 84100; 84134; 84255; 84425; 84443; 84590; 84630; 85027; 85610; 85730

== ENCOUNTER → 2024-10-14 | Outpatient (CLI) | payer OTHER ==
[2024-10-14 16:13] VITALS: BP 105/81; PULSE 72; RESP 16; TEMP 98; BMI 48.2
--- NOTE | 2024-10-14 16:40 | P.BASOAP ---
Subjective Progress Note Date: 10/14/24 She in on wegovy and had lost weight. She just had baby. 308 pounds. She is moving around. She was 322 pounds. Having chronic nausea and now is better with medication. She is no longer having severe head aches. Objective - Vital Signs Vital signs: Vital Signs Temp 98.0 F 10/14/24 16:06 Pulse 72 10/14/24 16:06 Resp 16 10/14/24 16:06 BP 105/81 10/14/24 16:06 Pulse Ox FiO2 Intake & Output 10/13/24 10/14/24 10/14/24 18:59 06:59 18:59 Weight 139.706 kg Assessment/Plan Plan: Date: 10/14/24 Initial Weight: 106.141 kg Initial BMI: 36.6 Current Weight: 139.706 kg Current BMI: 48.2 Type of Surgery: Total Volume in Band: Previous Volume: Volume Removed: Volume Added: Band Size:
== END ==
LOC: BARWHC3 15:27
PROVIDERS: ATTEND Surgery Plastic and Reconstructive Surgery
DX: E66.01 Morbid (severe) obesity due to excess calories (principal); Z68.42 Body mass index [BMI] 45.0-49.9, adult; Z88.1 Allergy status to other antibiotic agents; Z88.8 Allergy status to other drugs, medicaments and biological substances
CPT/HCPCS: 99211